=== PATIENT | female | born 1940 | race Caucasian/White ===

== ENCOUNTER 2023-07-29 15:30 | Inpatient (IN) | payer OTHER, SELFPAY ==
[2023-07-28] VITALS (8 sets, daily range): BP systolic 129–155; BP diastolic 61–79; BMI 25.8; BMI 24.5
[2023-07-28 17:17] LABS: % Basophils 1.4 % (0-2); % Eosinophils 3.2 % (0-6); % Immature Granulocytes 0.4 % (0-0.5); % Lymphocytes 18.1 % (20.5-51.1); % Monocytes 8.7 % (1.7-9.3); % Neutrophils 68.2 % (42.2-75.2); Absolute Basophils 0.1 10^3/uL (0-0.2); Absolute Eosinophils 0.3 10^3/uL (0-0.7); Absolute Lymphocytes 1.9 10^3/uL (1.2-3.4); Absolute Monocytes 0.9 10^3/uL (0.1-0.6); Hematocrit 35.2 % (37.0-47.0); Hemoglobin 12.8 g/dL (12.0-16.0); Mean Corp Hgb Conc. 36.4 g/dL (33.0-37.0); Mean Corpuscular Hgb 31.9 pg (27.0-31.0); Mean Corpuscular Volume 87.8 fL (81.0-99.0); Mean Platelet Volume 9.2 fL (7.4-10.4); Nucleated Red Blood Cells % 0 %; Platelet Count 342 10^3/uL (130-400); Red Blood Cell Count 4.01 10^6/uL (4.20-5.40); Red Cell Dist. Width 11.9 % (11.5-14.5); White Blood Cell Count 10.2 10^3/uL (4.8-10.8)
[2023-07-28 17:37] LABS: ALT (SGPT) 16 U/L (0-35); AST (SGOT) 21 U/L (14-36); Alkaline Phosphatase 63 U/L (38-126); Blood Urea Nitrogen 15 mg/dl (7-17); Calcium 9.2 mg/dl (8.4-10.2); Carbon Dioxide 26 mmol/L (22-30); Chloride 100 mmol/L (98-107); Estimated Creatinine Clearance 58 ml/min; Glucose 111 mg/dl (70-99); Potassium 3.3 mmol/L (3.5-5.1); Sodium 129 mmol/L (135-145); Total Bilirubin 0.5 mg/dl (0.2-1.3); eGFR > 60.00
[2023-07-28 17:41] LABS: NT-proBNP 423 pg/ml; Troponin I < 0.012 ng/ml
--- NOTE | 2023-07-28 18:47 | ED.GENMED ---
History of Present Illness
General
Chief Complaint: Chest Pain
Source: patient and family
Exam Limitations: none
Time Seen by Provider: 07/28/23 17:18
Nursing documentation reviewed up to this point in time: agreed with
Travel History
Have you had any contact with someone who has COVID-19?: No
Do you have any symptoms of coronavirus? Fever > 100 degrees, chills, cough, shortness of breath, sore throat, loss of taste or smell, muscle aches, or headache?: No
History of Present Illness
History of Present Illness:
Patient presents to ED secondary to shortness of breath with ambulation along with left-sided chest pain over the past 2 weeks. Denies any fever or chills. Denies nausea or vomiting. Denies symptoms at rest. Denies coughing. Denies dizziness.
Denies back pain. Patient also reports increased leg swelling over the past 2 days. Patient is an ex-smoker and has history of COPD. Of note, patient was admitted at another hospital in [place] 2 weeks ago and diagnosed with TIA. Patient has
been started on aspirin and Plavix since then.
Review of Systems
Review of Systems
Allergies reviewed?: Yes
All Other Systems: ROS reviewed and negative except as documented in HPI and ROS
Constitutional: Reports no symptoms
EENT: Reports no symptoms
Respiratory: Reports trouble breathing
Cardiac: Reports chest pain
ABD/GI: Reports no symptoms
: Reports no symptoms
Musculoskeletal: Reports edema
Skin: Reports no symptoms
Neurological: Reports no symptoms
Phy Exam
Physical Exam
Physical Exam:
Physical Exam
General: no apparent distress, not acutely ill. afebrile.
Head: nc/at. eomi
Neck: supple. no meningeal signs.
Heart: s1/s2 regular rate and rhythm, no murmur. equal radial pulses.
Lungs: no acute respiratory distress. diminished breath sounds bilaterally
Abdomen: normal bowel sounds. not tender.
Neuro: alert and oriented. no focal neurological deficits
Skin: no rash
Psychiatric: well kept. interactive and cooperative
Extremities: LE b/l edema, pitting. no calf tenderness.
Scores
Heart Score for Chest Pain Patients
STEMI patient?: Not applicable
Course
Orders/Labs/Results
Orders:
Orders
07/28/23 Dinner
Regular
At Your Request: Full Participation
07/28/23 16:52
Electrocardiogram (*1) Urgent
Reason for Study: Chest Pain
EKG- Treatment ONCE
07/28/23 17:06
Cardiac Monitoring- Treatment ONCE
IV Insert/Care/Rem.- Treatment PRN
O2 Therapy [RESP] Urgent
Titrate/Wean O2 to maintain O2 sat greater than (%): 90
Special Instructions: Maintain sats >/=90%
Pulse Ox/spot Check [RESP] Urgent
Quantity: 1
Special Instructions: ON ROOM AIR
07/28/23 17:07
Complete Blood Count/With Diff Urgent
Comprehensive Metabolic Panel Urgent
NT-proBNP Urgent
Serum Osmolality Urgent
Comment: ADD ON
Troponin I Urgent
07/28/23 18:03
Electrocardiogram (*1) Urgent
Reason for Study: Chest Pain
EKG- Treatment ONCE
07/28/23 18:40
CR Chest - 2 Views Urgent
Comment:
Reason For Exam: sob/cp
07/28/23 19:17
D-Dimer Urgent
07/28/23 21:09
Dexamethasone Sod Phosphate [Decadron] 6 mg IV NOW STA
Furosemide [Lasix] 20 mg IV NOW STA
Ipratropium/Albuterol Sulfate [Duoneb] 3 ml INH R NOW STA
07/28/23 21:10
Potassium Chloride [KCl] 40 meq PO NOW STA
07/28/23 21:14
Add On- LAB Urgent
Tests Added?: serum osm
07/28/23 21:15
Urinalysis Reflex To Culture Urgent
Date Specimen was Collected: 07/29/23
Time Specimen was Collected: 03:57
Urine Osmolality Random [Osmolality, Random Urine] Urgent
Date Specimen was Collected: 07/29/23
Time Specimen was Collected: 03:57
Urine Sodium Urgent
Date Specimen was Collected: 07/29/23
Time Specimen was Collected: 03:57
07/28/23 21:41
Admit/Transfer Patient As Directed
Co-Sign Provider:
Level of Care: Observation services
Assign to:: Telemetry
Physician / Group: km
Diagnosis: asthma/copd exacerbation
Reason for Telemetry: Arrhythmia
Date to Stop Telemetry: 07/31/23
Time to Stop Telemetry: 11:00
Code Status As Directed
Resuscitation Status: Do not resuscitate
Reached after discussion with pt or family/Healthcare POA: Yes
DNR Bracelet Application ONCE
07/28/23 23:34
Acetaminophen [Tylenol] 650 mg PO Q4HPRN PRN
Zolpidem Tartrate [Ambien] 5 mg PO HS
07/28/23 23:34
Activity As Directed
Activity Level: As Tolerated
Intake/ Output As Directed
Frequency: Per unit guidelines
Vital Signs As Directed
Frequency: Per unit guidelines
DX Deep Vein Thrombosis Video Routine
07/28/23 23:40
Pt Screening Request from Marifer Routine
07/29/23 03:59
Urine Microscopic Reflex Cult Urgent
07/29/23 06:44
Basic Metabolic Panel IN AM
Complete Blood Count/With Diff IN AM
07/29/23 08:00
Alprazolam [Xanax] 0.25 mg PO BID
Amlodipine [Norvasc] 10 mg PO DAILY
Aspirin Low Dose EC [Aspir Low (Enteric Coated)] 81 mg PO DAILY
Cetirizine HCl [Zyrtec] 10 mg PO DAILY
Cholecalciferol (Vitamin D3) [VITAMIN D3 (cholecalciferol)] 25 mcg PO DAILY
Clopidogrel Bisulfate [Plavix] 75 mg PO DAILY
Fluticasone/Salmeterol 45/21 [Advair Hfa 45/21 Mcg Inhaler] 2 puff INH R BID
Heparin 5,000 units SC Q12
Ipratropium/Albuterol Sulfate [Duoneb] 3 ml INH R QID
Lactobac/Bifidobac [Visbiome] 1 cap PO DAILY
Meclizine [Antivert] 25 mg PO BID
Nebivolol HCl [Bystolic] 10 mg PO DAILY
07/29/23 09:28
Echo 2D MMode Color/Doppler Routine
Reason for Study: JONES/murmur
07/29/23 09:29
Carotid US [US Cerebrovascular] Routine
Comment:
Reason For Exam: tia/ stenosis
07/29/23 09:30
PULMONARY CONSULT Routine
Consulting Provider: Veronika Dela Cruz
Was physician already notified: Yes
07/29/23 10:00
Dexamethasone Sod Phosphate [Decadron] 4 mg IV Q12H
07/29/23 13:50
Change in Level of Care [Level of Care Change] As Directed
Level of Care: Inpatient admission
Reason for Hospitalization: COPD exacerbation
Expected length of stay greater than two midnights?: Yes
ELOS- Estimated Length of Stay in days: 2
I certify the patient meets the requirements for IP care: Yes
07/29/23 18:00
Atorvastatin [Lipitor] 10 mg PO QPM
07/31/23 11:00
DC Protocol for Telemetry ONCE
08/02/23 06:00
Alendronate Sodium [Fosamax] 70 mg PO SA@0600
Abnormal Lab Results
07/28/23 07/29/23 07/29/23
17:07 03:59 06:44
RBC 4.01 L 10^6/uL
(4.20-5.40)
Hct 35.2 L %
(37.0-47.0)
MCH 31.9 H pg 31.5 H pg
(27.0-31.0) (27.0-31.0)
Absolute Neuts (auto) 7.0 H 10^3/uL 7.4 H 10^3/uL
(1.4-6.5) (1.4-6.5)
Absolute Lymphs (auto) 0.7 L 10^3/uL
(1.2-3.4)
Absolute Monos (auto) 0.9 H 10^3/uL
(0.1-0.6)
Neutrophils % 89.9 H %
(42.2-75.2)
Lymphocytes % 18.1 L % 8.6 L %
(20.5-51.1) (20.5-51.1)
Monocytes % 0.6 L %
(1.7-9.3)
Sodium 129 L mmol/L 134 L mmol/L
(135-145) (135-145)
Potassium 3.3 L mmol/L
(3.5-5.1)
Creatinine 0.5 L mg/dL 0.5 L mg/dL
(0.6-1.0) (0.6-1.0)
Glucose 111 H mg/dl 160 H mg/dl
(70-99) (70-99)
Serum Osmolality 274 L mOsm/kg
(275-300)
Total Protein 6.0 L g/dl
(6.3-8.2)
Urine Ketones Trace A
(Negative)
Leukocyte Esterase Rfl Trace A
(Negative)
Urine Bacteria (Reflex) Few A
(Negative)
07/29/23 06:44
07/29/23 06:44
Vital Signs
Initial and Last Documented VS:
Initial Vital Signs
BP
135/79
07/28/23 16:47
Last Documented Vital Signs
Temp Pulse Resp BP Pulse Ox
98.6 F 100 18 102/70 95
07/29/23 15:17 07/29/23 15:17 07/29/23 15:17 07/29/23 15:17 07/29/23 15:17
MDM/Problems Addressed
MDM/Problems Addressed:
During ambulation ED, patient noted to have recurrent chest pain along with shortness of breath, associated with desaturation to 88% on room air. Patient presenting symptoms likely multifactorial, including underlying COPD as well as potential mild
fluid overload. As such, patient will be admitted for further evaluation and treatment.
*EKG
Interpreted by ED Provider?: Yes
EKG Intrepretation Date: 07/28/23
Heart Rate: 78
Rate: normal
Rhythm: sinus
[place]: normal axis
Ischemia: non-specific ST changes
*Critical Care Note
Total Time (30-74mins, 75-104mins- exclusive of procedures): Not Applicable
ED Attending Note
-
Portions of this chart may have been created with voice recognition software.� Occasional wrong word or��sound alike� substitutions may have occurred due to the inherent limitations of voice recognition software.
Discharge Plan
Departure
Patient Disposition: Admit
Date of Disposition: 07/28/23
Time of Disposition: 21:13
Admit to: Telemetry
Presentation/result/management discussed w/ accepting MD/DO: Hospitalist
Discharge Problem:
Dyspnea on exertion, COPD (chronic obstructive pulmonary disease)
Interventions
Interventions:
*Risk Screen - Suicide Last Done: 07/28/23 16:48
*General Assessment Last Done: 07/28/23 16:48
*Neglect/Abuse Screening Last Done: 07/28/23 16:48
ED- Fall Risk Assessment Last Done: 07/28/23 19:28
*ED COVID-19 Vaccine History Last Done: 07/28/23 17:03
*Nursing Disposition Last Done: 07/28/23 23:30
ED- Cardiac Assessment Last Done: 07/28/23 19:28
Discharge Date and Time
Discharge Date/Time: 07/28/23 23:30
--- NOTE | 2023-07-28 21:46 | HPS.HSE ---
Family Physician
-
Family Physician: * NONE
Chief Complaint
-
shortness of breath
History of Present Illness
83-year-old female past medical history of asthma/COPD, osteoarthritis, M�ni�re's disease, anxiety, melanoma, basal cell skin cancer, insomnia, hypertension, hyperlipidemia, hyponatremia, prediabetes, presenting with shortness of breath for the past
month with exertion. She denies any shortness of breath when she lies down flat. She has chronic dry cough which is unchanged from baseline. Denies any fevers or chills.
She noticed bilateral lower extremity edema for the first time today. She has lost weight recently. Denies any history of heart failure or cardiac issues.
Patient was hospitalized at another hospital in [place] 2 weeks ago for TIA. He was found to have left carotid artery stenosis during the hospitalization.
Denies smoking or alcohol use.
Medical History
Past Medical History
Past Medical History: Reports Other (asthma/COPD, osteoarthritis, M�ni�re's disease, anxiety, melanoma, basal cell skin cancer, insomnia, hypertension, hyperlipidemia, hyponatremia, prediabetes)
Past Surgical History: Reports Other (Melanoma excision, x 3, appendectomy, right knee meniscectomy,)
Social History
Tobacco: Non-smoker
Alcohol: None
Drug: None
Family History
Family History: Not pertinent
Allergies / Home Medications
Allergies reflects when Allergies were last updated in [facility].
Home Medications with original date entered in [facility]
Allergy/Medication List:
Allergies
Allergy/AdvReac Type Severity Reaction Status Date / Time
Penicillins Allergy Rash/hives Verified 10/26/19 07:30
tape Allergy blisters Uncoded 10/26/19 07:30
Home Medications
alprazolam 0.25 mg tablet 0.25 mg PO BID Mental Health/Anxiety 10/15/19
cetirizine 10 mg tablet 10 mg PO DAILY Allergies 10/15/19
meclizine 25 mg tablet 25 mg PO BID vertigo 10/15/19
nebivolol 10 mg tablet 10 mg PO DAILY Blood pressure 10/15/19
simvastatin 10 mg tablet 10 mg PO QPM High cholesterol 10/15/19
zolpidem 5 mg tablet 5 mg PO HS Sleep 10/15/19
Lactobac no.2-Bifidobac no.1-S. thermo 112.5 billion cell capsule (Visbiome) 1 cap PO DAILY 07/28/23
acetaminophen 325 mg tablet 650 mg PO Q4H PRN mild pain 07/28/23
albuterol sulfate 90 mcg/actuation aerosol inhaler 2 puff inhalation R Q4 PRN sob/wheezing 07/28/23
alendronate 70 mg tablet 70 mg PO SA 07/28/23
amlodipine 10 mg tablet 10 mg PO DAILY 07/28/23
aspirin 81 mg tablet,delayed release 81 mg PO DAILY 07/28/23
cholecalciferol (vitamin D3) 25 mcg (1,000 unit) capsule (Vitamin D3) 25 mcg PO DAILY 07/28/23
clopidogrel 75 mg tablet 75 mg PO DAILY 07/28/23
fluticasone propionate 45 mcg-salmeterol 21 mcg/actuation HFA inhaler (Advair HFA) 2 puff inhalation R BID 07/28/23
krill 1,000 mg-omega-3 170 mg-dha 50 mg-epa 80 tu-anausv-alacc capsule (krill oil) 1 cap PO DAILY 07/28/23
Review of Systems
-
History Source: Patient
A 12 point ROS was completed and negative except as noted: Yes
Constitutional: Reports No Symptoms
EENT: Reports No Symptoms
Respiratory: Reports See HPI
Cardiac: Reports See HPI
Abdomen/GI: Reports No Symptoms
: Reports No Symptoms
Musculoskeletal: Reports No Symptoms
Skin: Reports No Symptoms
Neurological: Reports No Symptoms
Endocrine: Reports No Symptoms
Hematologic/Lymphatic: Reports No Symptoms
Psych: Reports No Symptoms
Physical Exam
Vital Signs
Vital Signs
Temp Pulse Resp BP Pulse Ox
98.5 F 77 20 131/61 95
07/28/23 19:28 07/28/23 19:28 07/28/23 19:28 07/28/23 19:28 07/28/23 19:28
Physical Exam
General: Well Developed, Well Nourished and No Apparent Distress
HEENT: NormoCephalic, Moist mucous membranes and Atraumatic
Respiratory: Clear
Cardiac: S1/S2 and Regular Rhythm; No Murmur or Rub
GI: Soft, Non Tender, Non Distended and Normal Bowel Sounds; No Organomegaly
Rectal: Deferred by Provider
Musculoskeletal: No Clubbing, No Cyanosis and No Edema
Skin: No Rash
Neuro: Nonfocal/grossly intact
Laboratory Results
-
07/28/23 17:07
07/28/23 17:07
Laboratory Results
Total Bilirubin 0.5 mg/dl (0.2-1.3) 07/28/23 17:07
AST 21 U/L (14-36) 07/28/23 17:07
ALT 16 U/L (0-35) 07/28/23 17:07
Alkaline Phosphatase 63 U/L (38-126) 07/28/23 17:07
Troponin I < 0.012 ng/ml 07/28/23 17:07
Data Reviewed
-
Lab Data: Labs Reviewed by me
Old Records: Reviewed
Impression/Plan
-
IMPRESSION:
PLAN:
# Asthma/COPD exacerbation
-Decreased air entry bilaterally on lung exam without wheeze or crackles
-D-dimer negative
-Chest x-ray shows hyperinflated lungs, no notable pulm edema or pneumonia, report pending
-Cardiac BNP 400
-Dexamethasone 4 mg every 12, DuoNebs every 6 hours
-Patient given 20 IV Lasix for heart failure however clinically does not seem to be in heart failure
# Bilateral lower extremity
-Likely venous insufficiency related
# Chest pressure
-EKG shows normal sinus rhythm
-Troponin negative, continue to trend
Recent TIA
Left carotid artery stenosis
-Continue aspirin, Plavix
Chronic hyponatremia
Prediabetes
Essential hypertension
-Continue amlodipine, nebivolol
M�ni�re's disease
-Continue meclizine
Osteoarthritis
Anxiety
-Continue alprazolam
Melanoma
Basal cell skin cancer
Insomnia
-Continue zolpidem
Hyperlipidemia
-Continue statin
Osteoporosis
-Continue alendronate
DNR/DNI
DVT prophylaxis�heparin
Regular diet
[2023-07-28 21:57] LABS: Osmolality Serum 274 mOsm/kg (275-300)
[2023-07-28] MEDS: DECADRON 6 MG IV (21:59)
[2023-07-28] MEDS: DUONEB 3 ML INH (22:00)
[2023-07-28] MEDS: KCL 40 MEQ PO (22:00)
[2023-07-28] MEDS: LASIX 20 MG IV (22:00)
[2023-07-29] MEDS: AMBIEN 5 MG PO ×2 (00:16→21:33)
--- NOTE | 2023-07-29 00:36 | PTCARENOTE ---
Pt admitted to . [facility]. AAOx3, gen weakness. NSR in the monitor. Lung sounds are diminished with some exp wheezing. SaO2 94% RA. Dyspneic w/ exertion. GI. WNL. Pt appears comfortable in bed and call gonzalez within reach.
[2023-07-29 03:15] VITALS: BP 129/73
[2023-07-29 04:09] LABS: Osmolality Urine 373 mOsm/kg (300-900)
[2023-07-29 04:38] LABS: Urine Sodium 64 mmol/L (30-90)
[2023-07-29 04:50] LABS: Urine Albumin Negative (Neg - Trace); Urine Bilirubin Negative (Negative); Urine Character Clear (Clear); Urine Color Yellow; Urine Glucose Negative (Negative); Urine Ketone Trace (Negative); Urine Leukocyte Trace (Negative); Urine Nitrite Negative (Negative); Urine Occult Blood Negative (Negative); Urine Urobilinogen Negative (Neg - 1+)
[2023-07-29 05:02] LABS: Urine Bacteria Few (Negative); Urine Mucus Few; Urine Red Blood Cell 0-2 /HPF (0-2)
[2023-07-29 06:00] VITALS: BMI 24.5
[2023-07-29 07:21] LABS: % Basophils 0.4 % (0-2); % Immature Granulocytes 0.5 % (0-0.5); % Lymphocytes 8.6 % (20.5-51.1); % Monocytes 0.6 % (1.7-9.3); % Neutrophils 89.9 % (42.2-75.2); Absolute Lymphocytes 0.7 10^3/uL (1.2-3.4); Absolute Monocytes 0.1 10^3/uL (0.1-0.6); Absolute Neutrophils 7.4 10^3/uL (1.4-6.5); Hematocrit 38.6 % (37.0-47.0); Hemoglobin 13.6 g/dL (12.0-16.0); Mean Corp Hgb Conc. 35.2 g/dL (33.0-37.0); Mean Corpuscular Hgb 31.5 pg (27.0-31.0); Mean Corpuscular Volume 89.4 fL (81.0-99.0); Mean Platelet Volume 9.4 fL (7.4-10.4); Nucleated Red Blood Cells % 0 %; Platelet Count 363 10^3/uL (130-400); Red Blood Cell Count 4.32 10^6/uL (4.20-5.40); Red Cell Dist. Width 11.8 % (11.5-14.5); White Blood Cell Count 8.3 10^3/uL (4.8-10.8)
[2023-07-29 07:25] VITALS: BP 150/70
[2023-07-29] MEDS: ASPIR LOW (ENTERIC COATED) 81 MG PO (07:33)
[2023-07-29] MEDS: PLAVIX 75 MG PO (07:33)
[2023-07-29] MEDS: VISBIOME 1 CAP PO (07:34)
[2023-07-29] MEDS: VITAMIN D3 (cholecalciferol) 25 MCG PO (07:34)
[2023-07-29] MEDS: ZYRTEC 10 MG PO (07:34)
[2023-07-29] MEDS: XANAX 0.25 MG PO ×2 (07:34→19:58)
[2023-07-29] MEDS: HEPARIN 5000 UNITS SC ×2 (07:34→19:58)
[2023-07-29] MEDS: NORVASC 10 MG PO (07:35)
[2023-07-29 08:02] LABS: Blood Urea Nitrogen 15 mg/dl (7-17); Calcium 9.8 mg/dl (8.4-10.2); Carbon Dioxide 24 mmol/L (22-30); Chloride 101 mmol/L (98-107); Estimated Creatinine Clearance 51 ml/min; Glucose 160 mg/dl (70-99); Potassium 4.1 mmol/L (3.5-5.1); Sodium 134 mmol/L (135-145); eGFR > 60.00
[2023-07-29] MEDS: ANTIVERT 25 MG PO ×2 (08:06→19:57)
[2023-07-29] MEDS: ADVAIR HFA 45/21 MCG INHALER 2 PUFF INH ×2 (08:16→19:37)
[2023-07-29] MEDS: DUONEB 3 ML INH ×2 (08:16→19:36)
--- NOTE | 2023-07-29 09:13 | W.PN.HOSP.TC ---
Today's Communication/Plan
-
Will continue present course of Decadron for now may be mostly dealing with emphysematous component
Pulmonary input/defer CT imaging and follow-up to them
Get 2D echocardiogram
Also carotid ultrasound to document questionable carotid stenosis
Assessment / Plan
Assessment / Plan
83-year-old female past medical history of asthma/COPD, osteoarthritis, M�ni�re's disease, anxiety, melanoma, basal cell skin cancer, insomnia, hypertension, hyperlipidemia, hyponatremia, prediabetes, presenting with shortness of breath for the past
month with exertion. She denies any shortness of breath when she lies down flat. She has chronic dry cough which is unchanged from baseline. Denies any fevers or chills. She states she has had unexplained shortness of breath on any exertion for
the last 3 months.
She noticed bilateral lower extremity edema for the first time today. She has lost weight recently. Denies any history of heart failure or cardiac issues.
Patient was hospitalized at another hospital in [place] 2 weeks ago for TIA. He was found to have left carotid artery stenosis during the hospitalization.
Denies smoking or alcohol use. Quit smoking 20 to 30 years ago.
She has been using what sounds like Advair the great disc for years twice a day and uses rescue Ventolin. She was told she needs a echocardiogram but never got around to doing that prior to leaving [place]. Was also told she may have a carotid
stenosis at that hospitalization
# Asthma/COPD exacerbation/suspect more likely the latter than the former
-Decreased air entry bilaterally on lung exam without wheeze or crackles
-D-dimer negative
-Chest x-ray shows hyperinflated lungs, no notable pulm edema or pneumonia, showed questionable right lower lobe 2 cm opacity
-Cardiac BNP 400/obtain 2D echocardiogram that was to be scheduled as outpatient
-Dexamethasone 4 mg every 12, DuoNebs every 6 hours
-Patient given 20 IV Lasix for heart failure however clinically does not seem to be in heart failure
-Not sure present course of IV Decadron doing that much as not significantly bronchospastic
-Suspect advanced COPD/will get pulmonary input also in regards to questionable mass/patient also wants to follow-up locally
# Bilateral lower extremity
-Likely venous insufficiency related
# Chest pressure
-EKG shows normal sinus rhythm
-Troponin negative, continue to trend
-proBNP of 434
-Will obtain 2D echocardiogram
Recent TIA
Left carotid artery stenosis
-Continue aspirin, Plavix
Chronic hyponatremia
-But sodium jose from 04 28- 34 here
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
Prediabetes
Essential hypertension
-Continue amlodipine, nebivolol
M�ni�re's disease
-Continue meclizine
Osteoarthritis
Anxiety
-Continue alprazolam
Melanoma
-Excision years ago
Basal cell skin cancer
Insomnia
-Continue zolpidem
Hyperlipidemia
-Continue statin
Osteoporosis
-Continue alendronate
DNR/DNI
DVT prophylaxis�heparin
Regular diet
Anticipated Discharge: 24 - 48 hours
Subjective/Interval History
-
Date of Service: July 29, 2023
Patient states that she has had breathing issues especially on exertion for the last 3 months she has been diagnosed with COPD for years recently admitted to a [place] hospital for a suspected TIA was sent home was told may have carotid stenosis
also. She is interested in getting a location analyst locally and requested 1 to see her here.
Objective Data
-
Labs:
Laboratory Results
07/29/23
06:44
WBC 8.3
Hgb 13.6
Hct 38.6
Plt Count 363
Sodium 134 L
Potassium 4.1
Chloride 101
Carbon Dioxide 24
BUN 15
Creatinine 0.5 L
Glucose 160 H
Calcium 9.8
Vital Signs:
Vital Signs
Temp Pulse Resp BP Pulse Ox
98.3 F 81 19 150/70 94
07/29/23 07:25 07/29/23 08:21 07/29/23 08:21 07/29/23 07:35 07/29/23 08:21
I&O
07/28/23 07/29/23 07/30/23
06:59 06:59 06:59
Intake Total 480 / 480
Output Total 800 / 800
Balance -320 / -320
Review of Systems
-
History Source: Patient and Family
Constitutional: Reports Fatigue
Respiratory: Reports Trouble Breathing
Cardiac: Reports No Symptoms
Abdomen/GI: Reports No Symptoms
Skin: Reports No Symptoms
Neuro: Reports No Symptoms
Endocrine: Reports No Symptoms
Physical Exam
-
General: Well Developed
HEENT: Normocephalic
Respiratory: Clear to Auscultation; Negative Wheezes
Cardiac: Regular Rhythm and Murmur
GI: Soft and Nontender
Neuro: Awake, Alert and Oriented
Psych: Calm
Data Reviewed
-
Total Time Spent with Patient (in minutes): 45
Diagnostic Radiology: Report Reviewed by me (Chest x-ray showed underlying COPD no evidence of CHF but did show 2 cm opacity in the right lower lobe cannot exclude mass)
Labs: Labs Reviewed by me (Sodium 129 on presentation now up to 134 potassium up to 4.1/serum osmolality depressed to 274 with a urine osmole normal or slightly high>. SIADH)
[2023-07-29] MEDS: TYLENOL 650 MG PO (09:20)
[2023-07-29] MEDS: DECADRON 4 MG IV ×2 (09:20→21:33)
[2023-07-29] MEDS: BYSTOLIC 10 MG PO (09:37)
[2023-07-29 11:30] VITALS: BP 136/63
[2023-07-29] MEDS: DUONEB INH ×2 (12:09→15:56)
--- NOTE | 2023-07-29 14:50 | CM ---
Met with patient at the bedside; initial assessment completed
SANCHEZ form explained; form signed @ 1440
Family Physician verified: [facility]
*New patient appointment with [facility], [facility], on August 06; #[phone]
Pharmacy verified: [facility], [facility]
Patient lives in [place], [place]; staying with her daughter, Quiana, in [facility]; staying on one floor of home; 2 steps to enter; bath has tub w/ shower
PLOF: independent with ADLs; ambulates with walker; not driving during her stay in [place]
SNF/Rehab/Home Health utilization history: home health with [facility] 4 years ago
Transportation: family will provide transport home
Plan: discharge to daughter's home when medically stable; pending hospital course, will monitor for DC needs
[2023-07-29 15:17] VITALS: BP 102/70
--- NOTE | 2023-07-29 16:31 | CON.PUL ---
Consultation
Consultation Request
Date/Time Consultation Requested: 07/28
Date/Time Consultation Performed: 07/28
Reason for Consultation: Shortness of breath
Medical History
-
History of Present Illness:
History obtained from the chart and from the patient. Patient is an 83-year-old female with history of asthma/COPD, basal cell cancer and melanoma, hypertension, hyperlipidemia who presents with shortness of breath. She states she been short of
breath over the last 3 months. She primarily lives in [place], but has been here for the past few weeks visiting her daughter. She also describes a chronic dry cough which has been present for a few months. Denies hemoptysis. She admits to chest
tightness which she describes as constant, nonpleuritic. She has seen cardiology while in [place] and according to her workup has been negative. She describes lower extremity swelling, difficulty in her speech. For this reason she brought herself
into [facility]. Upon arrival, afebrile, pulse 100, breathing 18, blood pressure 102/70, 95%. Patient was noted to desaturate to 88% on room air while in the ED. Patient was admitted for possible COPD, heart failure
.
PMH: History of asthma/COPD, osteoarthritis, melanoma, basal cell skin cancer, hypertension, hyperlipidemia, history of melanoma excision, , appendectomy. History of TIA hospitalized in [place] early June 2023 with documented carotid
stenosis on the left
Past Medical History
Past Medical History: None (See above)
Past Surgical History: None (See above)
Social History
Tobacco: Former Smoker ([id number], quit )
Alcohol: Occasional
Drug: None
Personal:
Living: Alone
Employment: Retired (Camera Operator)
Family History
Family History: Other (Family history of lung cancer. Brother from lung cancer)
Allergies / Home Medications
Allergies
Allergy/AdvReac Type Severity Reaction Status Date / Time
adhesive tape Allergy BLISTERS Verified 07/28/23 23:41
Penicillins Allergy Rash/hives Verified 10/26/19 07:30
Home Medications
�Medication �Instructions �Recorded �Confirmed �Last Taken �Type
alprazolam 0.25 mg tablet 0.25 mg PO BID Mental 10/15/19 07/28/23 07/28/23 History
Health/Anxiety
cetirizine 10 mg tablet 10 mg PO DAILY Allergies 10/15/19 07/28/23 07/28/23 History
meclizine 25 mg tablet 25 mg PO BID vertigo 10/15/19 07/28/23 07/28/23 History
nebivolol 10 mg tablet 10 mg PO DAILY Blood pressure 10/15/19 07/28/23 07/28/23 History
simvastatin 10 mg tablet 10 mg PO QPM High cholesterol 10/15/19 07/28/23 07/27/23 History
zolpidem 5 mg tablet 5 mg PO HS Sleep 10/15/19 07/28/23 07/27/23 History
Lactobac no.2-Bifidobac no.1-S. 1 cap PO DAILY 07/28/23 07/28/23 07/28/23 History
thermo 112.5 billion cell capsule
(Visbiome)
acetaminophen 325 mg tablet 650 mg PO Q4H PRN mild pain 07/28/23 07/28/23 Unknown History
albuterol sulfate 90 mcg/actuation 2 puff inhalation R Q4 PRN 07/28/23 07/28/23 Unknown History
aerosol inhaler sob/wheezing
alendronate 70 mg tablet 70 mg PO SA 07/28/23 07/28/23 07/26/23 History
amlodipine 10 mg tablet 10 mg PO DAILY 07/28/23 07/28/23 07/28/23 History
aspirin 81 mg tablet,delayed 81 mg PO DAILY 07/28/23 07/28/23 07/28/23 History
release
cholecalciferol (vitamin D3) 25 25 mcg PO DAILY 07/28/23 07/28/23 07/28/23 History
mcg (1,000 unit) capsule (Vitamin
D3)
clopidogrel 75 mg tablet 75 mg PO DAILY 07/28/23 07/28/23 07/28/23 History
fluticasone propionate 45 2 puff inhalation R BID 07/28/23 07/28/23 07/28/23 History
mcg-salmeterol 21 mcg/actuation
HFA inhaler (Advair HFA)
krill 1,000 mg-omega-3 170 mg-dha 1 cap PO DAILY 07/28/23 07/28/23 07/28/23 History
50 mg-epa 80 [id number]
capsule (krill oil)
Review of Systems
-
All other systems: Negative unless noted
Vitals / Labs / Diagnostic Testing
Vital Signs
Temp Pulse Resp BP Pulse Ox
98.6 F 100 18 102/70 95
07/29/23 15:17 07/29/23 15:17 07/29/23 15:17 07/29/23 15:17 07/29/23 15:17
Lab Data
07/29/23 06:44
07/29/23 06:44
Diagnostic Testing:
Physical Exam
-
HEENT: Normocephalic and Anicteric
Cardiovascular: S1/S2, Regular Rhythm, Murmur (2/6 systolic murmur), Rub (n), Peripheral Edema (n) and Calf Tenderness (n)
Respiratory: Wheeze (n), Rales (n), Rhonchi (n) and Non-Labored Respirations
GI: Soft, Non Distended and Non Tender
Neurology: Awake, Alert, Oriented and No Motor Deficits (Able to sit up without assistance)
Skin: Good Color (No clubbing, cyanosis)
General: Comfortable (Conversant)
Assessment
-
83-year-old female with subjective dyspnea x 3 months, progressive, presents with increased lower extremity swelling, questionable speech issues, persistent left-sided chest discomfort. We are asked to comment on pulmonary process
Subjective dyspnea x 3 months, progressive
Chest pain, nonspecific/constant
Recent TIA, hospitalized in [place] 3 weeks prior to admission
Questionable carotid disease
Murmur on exam
Right lower lobe nodule
Kyphoscoliosis
Conditions present prior to admission
History of melanoma/basal cell cancer
History of asthma/COPD
70+ pack-year history of smoking quit
Hypertension/hyperlipidemia
Chronic hyponatremia
History of osteoarthritis
Suspected sleep disordered breathing
Insomnia
Family history of lung cancer
Plan/recommendations
At this time, notable features are clear lungs, unremarkable chest x-ray with the exception of right lower lobe nodule
Symptoms are suggestive of possible fluid overload although patient denies any weight changes
She had seen cardiology in [place] and apparently had a workup which was negative at that time, details unclear
Moving forward
Check echocardiogram
Check bedside spirometry
No wheezing on exam at this time. Will transition to oral prednisone in the next 24 hours
We will continue with current inhaler regimen
Await carotid ultrasound
DVT prophylaxis: Remains on subcutaneous heparin
Will eventually require CT imaging. Timing will be decided in the next 24 hours
Would also consider outpatient HST or nocturnal oximetry depending on symptoms. We will continue to follow
[2023-07-29] MEDS: LIPITOR 10 MG PO (17:15)
[2023-07-29 19:20] VITALS: BP 122/63
[2023-07-29] MEDS: COLACE 100 MG PO (21:33)
[2023-07-29 23:25] VITALS: BP 125/55
[2023-07-30 03:10] VITALS: BP 116/73
[2023-07-30 06:00] VITALS: BMI 24.9
[2023-07-30 07:25] VITALS: BP 118/71
[2023-07-30] MEDS: NORVASC 10 MG PO (08:32)
[2023-07-30] MEDS: BYSTOLIC 10 MG PO (08:32)
[2023-07-30] MEDS: VISBIOME 1 CAP PO (08:32)
[2023-07-30] MEDS: ASPIR LOW (ENTERIC COATED) 81 MG PO (08:32)
[2023-07-30] MEDS: XANAX 0.25 MG PO ×2 (08:32→20:27)
[2023-07-30] MEDS: COLACE 100 MG PO ×2 (08:32→20:27)
[2023-07-30] MEDS: PLAVIX 75 MG PO (08:32)
[2023-07-30] MEDS: ANTIVERT 25 MG PO ×2 (08:32→20:27)
[2023-07-30] MEDS: VITAMIN D3 (cholecalciferol) 25 MCG PO (08:32)
[2023-07-30] MEDS: ZYRTEC 10 MG PO (08:33)
[2023-07-30] MEDS: HEPARIN 5000 UNITS SC (08:33)
--- NOTE | 2023-07-30 09:00 | W.PN.HOSP.TC ---
Today's Communication/Plan
-
For bedside spirometry today
Appreciate pulmonary input the side of further imaging including CT
May need further outpatient follow-up
Transition to oral prednisone
Assessment / Plan
Assessment / Plan
83-year-old female past medical history of asthma/COPD, osteoarthritis, M�ni�re's disease, anxiety, melanoma, basal cell skin cancer, insomnia, hypertension, hyperlipidemia, hyponatremia, prediabetes, presenting with shortness of breath for the past
month with exertion. She denies any shortness of breath when she lies down flat. She has chronic dry cough which is unchanged from baseline. Denies any fevers or chills. She states she has had unexplained shortness of breath on any exertion for
the last 3 months.
She noticed bilateral lower extremity edema for the first time today. She has lost weight recently. Denies any history of heart failure or cardiac issues.
Patient was hospitalized at another hospital in [place] 2 weeks ago for TIA. He was found to have left carotid artery stenosis during the hospitalization.
Denies smoking or alcohol use. Quit smoking 20 to 30 years ago.
She has been using what sounds like Advair the great disc for years twice a day and uses rescue Ventolin. She was told she needs a echocardiogram but never got around to doing that prior to leaving [place]. Was also told she may have a carotid
stenosis at that hospitalization
# Asthma/COPD exacerbation/suspect more likely the latter than the former
-Decreased air entry bilaterally on lung exam without wheeze or crackles
-D-dimer negative
-Chest x-ray shows hyperinflated lungs, no notable pulm edema or pneumonia, showed questionable right lower lobe 2 cm opacity
-Cardiac BNP 400/ 2D echocardiogram here notes a EF of 65% with normal wall motion mild tricuspid regurg with mild elevation in PAP
-Dexamethasone 4 mg every 12, DuoNebs every 6 hours/mostly any significant bronchospasm see no further need for steroids
-Patient given 20 IV Lasix for heart failure however clinically does not seem to be in heart failure
-Suspect advanced COPD/will get pulmonary input also in regards to questionable mass/patient also wants to follow-up locally/PFTs today/pulmonary to decide on CT imaging
# Bilateral lower extremity
-Likely venous insufficiency related
# Chest pressure
-EKG shows normal sinus rhythm
-Troponin negative, continue to trend
-proBNP of 434
-2D echocardiogram noted above
Recent TIA
Performed a carotid Doppler here without significant ICA stenosis
-Continue aspirin, Plavix
Chronic hyponatremia
-But sodium jose from 29-1 34 here
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
Prediabetes
Essential hypertension
-Continue amlodipine, nebivolol
M�ni�re's disease
-Continue meclizine
Osteoarthritis
Anxiety
-Continue alprazolam
Melanoma
-Excision years ago
Basal cell skin cancer
Insomnia
-Continue zolpidem
Hyperlipidemia
-Continue statin
Osteoporosis
-Continue alendronate
DNR/DNI
DVT prophylaxis�heparin
Regular diet
Anticipated Discharge: Within 24 hours
Subjective/Interval History
-
Date of Service: July 30, 2023
Some dyspnea at rest and with conversation no congestion or wheezing./Went over the results of 2D echocardiogram and carotid Doppler
Objective Data
-
Vital Signs:
Vital Signs
Temp Pulse Resp BP Pulse Ox
98.1 F 88 18 118/70 97
07/30/23 07:25 07/30/23 08:32 07/30/23 07:25 07/30/23 08:32 07/30/23 07:25
I&O
07/29/23 07/30/23 07/31/23
06:59 06:59 06:59
Intake Total 480 / 480 1320 / 1320
Output Total 800 / 800
Balance -320 / -320 1320 / 1320
Review of Systems
-
History Source: Patient
Constitutional: Reports No Symptoms
EENT: Reports No Symptoms Reported
Respiratory: Reports Trouble Breathing
Cardiac: Reports No Symptoms
Skin: Reports No Symptoms
Neuro: Reports No Symptoms
Hematologic / Lymphatic: Reports No Symptoms
Physical Exam
-
General: Well Developed
HEENT: Normocephalic
Respiratory: Clear to Auscultation
Cardiac: Regular Rhythm
GI: Soft
Data Reviewed
-
Total Time Spent with Patient (in minutes): 34
Labs: Labs Reviewed by me
[2023-07-30] MEDS: DUONEB 3 ML INH ×4 (09:11→19:34)
[2023-07-30] MEDS: ADVAIR HFA 45/21 MCG INHALER 2 PUFF INH ×2 (09:12→19:34)
[2023-07-30] MEDS: DELTASONE 30 MG PO (10:25)
[2023-07-30 11:04] VITALS: BP 131/67
[2023-07-30 15:20] VITALS: BP 127/66
--- NOTE | 2023-07-30 15:25 | W.PN.PUL3 ---
Today's Communication / Plan
-
Transition to oral prednisone
Continue with Advair
Ambulate, head of bed elevated
We will order CT chest without contrast given abnormal chest x-ray
Will determine workup depending on findings
Assessment
-
83-year-old female with subjective dyspnea x 3 months, progressive, presents with increased lower extremity swelling, questionable speech issues, persistent left-sided chest discomfort. We are asked to comment on pulmonary process
Subjective dyspnea x 3 months, progressive
Chest pain, nonspecific/constant
Recent TIA, hospitalized in [place] 3 weeks prior to admission
Questionable carotid disease
Murmur on exam
Mild aortic stenosis, valve area not reported
Mild pulm hypertension, PA pressure 40
Right lower lobe nodule
Kyphoscoliosis
Conditions present prior to admission
History of melanoma/basal cell cancer
History of asthma/COPD
70+ pack-year history of smoking quit
Hypertension/hyperlipidemia
Chronic hyponatremia
History of osteoarthritis
Suspected sleep disordered breathing
Insomnia
Family history of lung cancer
Plan/recommendations
At this time, notable features are clear lungs, unremarkable chest x-ray with the exception of right lower lobe nodule
Symptoms are suggestive of possible fluid overload although patient denies any weight changes
She had seen cardiology in [place] and apparently had a workup which was negative at that time, details unclear
Patient does feel mildly improved, less cough
Spirometry consistent with mild to moderate obstructive lung disease
Echocardiogram with normal biventricular function, mild aortic stenosis, PA pressure 40
Moving forward
Continue with supportive care
transition to oral prednisone in the next 24 hours
We will continue with current inhaler regimen
Carotid ultrasound unremarkable
DVT prophylaxis: Remains on subcutaneous heparin
Will eventually require CT imaging. Timing will be decided in the next 24 hours
Would also consider outpatient HST or nocturnal oximetry depending on symptoms. We will continue to follow
Encourage ambulation
Subjective Data
-
Date of Service:
Date of Service: July 30, 2023
Subjective:
Patient is feeling fatigued. She denies significant shortness of breath, chest pain, abdominal pain, nausea. She has a dry cough.
Objective Data
Data Reviewed
Vital Signs / I&O / Oxygen:
Vital Signs
Temp Pulse Resp BP Pulse Ox
97.9 F 98 18 131/67 97
07/30/23 11:04 07/30/23 11:04 07/30/23 11:04 07/30/23 11:04 07/30/23 12:22
Intake and Output
07/29/23 07/30/23 07/31/23
06:59 06:59 06:59
Intake Total 480 / 480 1320 / 1320
Output Total 800 / 800
Balance -320 / -320 1320 / 1320
SaO2 97
Physical Exam
General: Comfortable
HEENT: Normocephalic and Anicteric
Cardiovascular: S1-S2, Regular Rhythm, Murmur (2/6 systolic murmur), Rub (n) and Peripheral Edema (n)
Respiratory: Wheeze (Mild), Crackles (n), Rhonchi (n) and Non-Labored Respirations
GI: Soft, Non Distended and Non Tender
Neurology: Awake, Alert and No Motor Deficits (Able to sit up without assistance)
Skin: Cyanosis (n), Jaundice (n) and Rash (n)
Labs/Micro/Reports
Lab Data
07/29/23 06:44
07/29/23 06:44
[2023-07-30] MEDS: LIPITOR 10 MG PO (18:22)
[2023-07-30 19:46] VITALS: BP 119/70
[2023-07-30] MEDS: HEPARIN SC (20:46)
[2023-07-30] MEDS: AMBIEN 5 MG PO (21:50)
[2023-07-30 23:34] VITALS: BP 119/64
[2023-07-31] VITALS (8 sets, daily range): BP systolic 112–138; BP diastolic 51–65; PULSE 105–110; O2SAT 90; BMI 25.3
[2023-07-31 06:52] LABS: Blood Urea Nitrogen 19 mg/dl (7-17); Calcium 9.5 mg/dl (8.4-10.2); Carbon Dioxide 24 mmol/L (22-30); Chloride 101 mmol/L (98-107); Estimated Creatinine Clearance 51 ml/min; Glucose 109 mg/dl (70-99); Potassium 4.1 mmol/L (3.5-5.1); Sodium 132 mmol/L (135-145); eGFR > 60.00
[2023-07-31] MEDS: DUONEB 3 ML INH ×4 (07:19→19:21)
[2023-07-31] MEDS: ADVAIR HFA 45/21 MCG INHALER 2 PUFF INH ×2 (07:20→19:22)
[2023-07-31] MEDS: BYSTOLIC 10 MG PO (09:09)
[2023-07-31] MEDS: VISBIOME 1 CAP PO (09:09)
[2023-07-31] MEDS: XANAX 0.25 MG PO ×2 (09:09→20:49)
[2023-07-31] MEDS: NORVASC 10 MG PO (09:09)
[2023-07-31] MEDS: VITAMIN D3 (cholecalciferol) 25 MCG PO (09:09)
[2023-07-31] MEDS: ANTIVERT 25 MG PO ×2 (09:10→20:49)
[2023-07-31] MEDS: PLAVIX 75 MG PO (09:10)
[2023-07-31] MEDS: COLACE 100 MG PO ×2 (09:10→20:49)
[2023-07-31] MEDS: HEPARIN 5000 UNITS SC (09:10)
[2023-07-31] MEDS: ZYRTEC 10 MG PO (09:10)
[2023-07-31] MEDS: DELTASONE 30 MG PO (09:10)
[2023-07-31] MEDS: ASPIR LOW (ENTERIC COATED) 81 MG PO (09:25)
--- NOTE | 2023-07-31 09:39 | W.PN.HOSP.TC ---
Today's Communication/Plan
-
With onset of A-fib RVR consultation placed with cardiology and discussed
Will need to be placed on anticoagulation
Consideration for discontinuation of Plavix/already has bruising over abdomen and needs after starting in [place]
Discussed the pertinent results thus far with patient's daughter/also discussed with pulmonary today
Assessment / Plan
Assessment / Plan
83-year-old female past medical history of asthma/COPD, osteoarthritis, M�ni�re's disease, anxiety, melanoma, basal cell skin cancer, insomnia, hypertension, hyperlipidemia, hyponatremia, prediabetes, presenting with shortness of breath for the past
month with exertion. She denies any shortness of breath when she lies down flat. She has chronic dry cough which is unchanged from baseline. Denies any fevers or chills. She states she has had unexplained shortness of breath on any exertion for
the last 3 months.
She noticed bilateral lower extremity edema for the first time today. She has lost weight recently. Denies any history of heart failure or cardiac issues.
Patient was hospitalized at another hospital in [place] 2 weeks ago for TIA. He was found to have left carotid artery stenosis during the hospitalization.
Denies smoking or alcohol use. Quit smoking 20 to 30 years ago.
She has been using what sounds like Advair the great disc for years twice a day and uses rescue Ventolin. She was told she needs a echocardiogram but never got around to doing that prior to leaving [place]. Was also told she may have a carotid
stenosis at that hospitalization
# New onset atrial fibrillation with rapid ventricular response noted this morning
-
# Asthma/COPD exacerbation/suspect more likely the latter than the former
-Decreased air entry bilaterally on lung exam without wheeze or crackles
-D-dimer negative
-Chest x-ray shows hyperinflated lungs, no notable pulm edema or pneumonia, showed questionable right lower lobe 2 cm opacity
-Cardiac BNP 400/ 2D echocardiogram here notes a EF of 65% with normal wall motion mild tricuspid regurg with mild elevation in PAP
-Dexamethasone 4 mg every 12, DuoNebs every 6 hours/mostly any significant bronchospasm see no further need for steroids
-Patient given 20 IV Lasix for heart failure however clinically does not seem to be in heart failure
-Suspect advanced COPD/will get pulmonary input also in regards to questionable mass/patient also wants to follow-up locally/PFTs performed bedside noted only mild COPD component without reversibility
-CT scan of the chest pending
# Bilateral lower extremity
-Likely venous insufficiency related
# Chest pressure
-EKG shows normal sinus rhythm
-Troponin negative, continue to trend
-proBNP of 434
-2D echocardiogram noted above
Recent TIA
Performed a carotid Doppler here without significant ICA stenosis
-Continue aspirin, Plavix
Chronic hyponatremia
-But sodium jose from 1 29-1 34 here
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
Prediabetes
Essential hypertension
-Continue amlodipine, nebivolol
M�ni�re's disease
-Continue meclizine
Osteoarthritis
Anxiety
-Continue alprazolam
Melanoma
-Excision years ago
Basal cell skin cancer
Insomnia
-Continue zolpidem
Hyperlipidemia
-Continue statin
Osteoporosis
-Continue alendronate
DNR/DNI
DVT prophylaxis�heparin
Regular diet
Anticipated Discharge: 24 - 48 hours
Subjective/Interval History
-
Date of Service: July 31, 2023
Remains short of breath at rest but no oxygen requirements PFT results only consistent with mild COPD with minimal reversibility if any. Discussed results thus far with patient's daughter and patient's son yesterday now found to be in RVR A-fib
this morning
Objective Data
-
Labs:
Laboratory Results
07/31/23
05:25
Sodium 132 L
Potassium 4.1
Chloride 101
Carbon Dioxide 24
BUN 19 H
Creatinine 0.6
Glucose 109 H
Calcium 9.5
Vital Signs:
Vital Signs
Temp Pulse Resp BP Pulse Ox
97.8 F 91 18 112/58 96
07/31/23 08:13 07/31/23 09:09 07/31/23 08:13 07/31/23 09:09 07/31/23 09:19
I&O
07/30/23 07/31/23 08/01/23
06:59 06:59 06:59
Intake Total 1320 / 1320 600 / 600
Balance 1320 / 1320 600 / 600
Review of Systems
-
History Source: Patient
Constitutional: Reports Fatigue and Weakness
EENT: Reports No Symptoms Reported
Respiratory: Reports Trouble Breathing
Cardiac: Reports No Symptoms
Physical Exam
-
General: Respiratory Distress (Mildly tachypneic minimal exertion)
HEENT: Normocephalic and PERRLA
Respiratory: Decreased Breath Sounds
Cardiac: Irregular Rhythm and Tachycardic (A-fib RVR on monitor)
GI: Soft
Neuro: Awake, Alert, Oriented and AO x 3
Psych: Calm
Data Reviewed
-
Total Time Spent with Patient (in minutes): 56
CT Scan: Report Reviewed by me (Report pending of CT scan of chest)
Labs: Labs Reviewed by me
--- NOTE | 2023-07-31 10:56 | CON.CAR ---
Addendum entered and electronically signed by Aldo Vee DO 08/01/23 10:45:
I saw and examined the patient 07/31/2023 at 1200PM.
The Lowerator Operator's note was reviewed and I agree with the note.
Comment:
Plan:
Patient with recent TIA in [place] and her recent hospitalization. She was started on Plavix for this.
Noted to have paroxysmal atrial fibrillation. Currently in sinus.
Discussed rate control, rhythm control and stroke prophylaxis.
In light of her history of TIA, anticoagulation is recommended and she was started on Eliquis.
Discussed consideration for amiodarone to help keep her in rhythm however after discussion with family there was some concern from daughter regarding the amount of medications that the patient was on. We discussed that if she has continued
recurrent paroxysms of atrial fibrillation that would have a low threshold to start amiodarone.
Cont outpt beta ayana for rate control.
Check echocardiogram
She will be recommended outpatient cardiac follow-up. She was already scheduled to see Dr. Clemons in the office in mid July.
She is recommended to follow through with sleep study to eval for TED as this can increase risk of recurrent AFib and CVA.
Cont pulm eval and tx for possible COPD exacerbation.
Discussed with family at bedside. .
Original Note:
Consultation
Consultation Request
Date/Time Consultation Requested: 07/31/23 at 0835
Date/Time Consultation Performed: 07/31/23 at 1130
Requesting Provider: Dr. Reyes
Performing Provider: Dr. Vee
Reason for Consultation: h/o TIA, posisble new Afib
Medical History
-
History of Present Illness:
Patient came to [facility] on Friday with SOB and recent TIA at a hospital in [place] and cardiology is now consulted for possible Afib. Patient lives in her own apartment in [place]. Patient says that she had an episode of LE edema and confusion so she
went to an urgent care and then an ER in [place]. She says she was admitted overnight and then discharged to home with the diagnosis of TIA. Patient did not recall any work-up, but remembers that she was told she had a murmur and needed an echo.
Patient has seen a PCP locally in the past and looking through eCW I was able to find that patient had an echo in [place] about 2 weeks ago, but patient did not remember this. Patient says that she has been confused and forgetting things lately. No
chest pain, but she has been SOB with all activity. Her family also reports stumbling and falling into furniture and one fall where she fell to the floor and bruised herself. Patient's daughters asked her to fly here and then brought her to [facility] on
Friday. Patient was being transported down for a CT today and noted to have a rapid and irregular rhythm that appeared consistent with Afib. Patient denies palpitations.
PMH:
TIA diagnosed in [place] 06/2023
Mild
Former smoker
HTN
Hyperlipidemia
Past Medical History
Past Medical History: Other (in HPI)
Past Surgical History: Appendectomy, and Orthopedic
Social History
Tobacco: Former Smoker
Alcohol: Occasional
Drug: None
Personal:
Living: Alone (lives in her own apartment in [facility] [place], visiting daughters locally)
Allergies / Home Medications
Allergy/AdvReac Type Severity Reaction Status Date / Time
adhesive tape Allergy BLISTERS Verified 07/28/23 23:41
Penicillins Allergy Rash/hives Verified 10/26/19 07:30
�Medication �Instructions �Recorded �Confirmed �Type
alprazolam 0.25 mg tablet 0.25 mg PO BID Mental 10/15/19 07/28/23 History
Health/Anxiety
cetirizine 10 mg tablet 10 mg PO DAILY Allergies 10/15/19 07/28/23 History
meclizine 25 mg tablet 25 mg PO BID vertigo 10/15/19 07/28/23 History
nebivolol 10 mg tablet 10 mg PO DAILY Blood pressure 10/15/19 07/28/23 History
simvastatin 10 mg tablet 10 mg PO QPM High cholesterol 10/15/19 07/28/23 History
zolpidem 5 mg tablet 5 mg PO HS Sleep 10/15/19 07/28/23 History
Lactobac no.2-Bifidobac no.1-S. 1 cap PO DAILY probiotic 07/28/23 07/28/23 History
thermo 112.5 billion cell capsule
(Visbiome)
acetaminophen 325 mg tablet 650 mg PO Q4H PRN mild pain 07/28/23 07/28/23 History
albuterol sulfate 90 mcg/actuation 2 puff inhalation R Q4 PRN 07/28/23 07/28/23 History
aerosol inhaler sob/wheezing
alendronate 70 mg tablet 70 mg PO SA osteoporosis 07/28/23 07/28/23 History
amlodipine 10 mg tablet 10 mg PO DAILY Blood Pressure 07/28/23 07/28/23 History
aspirin 81 mg tablet,delayed 81 mg PO DAILY Blood Clot 07/28/23 07/28/23 History
release Prevention/Tx
cholecalciferol (vitamin D3) 25 25 mcg PO DAILY Supplement 07/28/23 07/28/23 History
mcg (1,000 unit) capsule (Vitamin
D3)
clopidogrel 75 mg tablet 75 mg PO DAILY Blood Clot 07/28/23 07/28/23 History
Prevention/Tx
fluticasone propionate 45 2 puff inhalation R BID 07/28/23 07/28/23 History
mcg-salmeterol 21 mcg/actuation Lung/Breathing Issues
HFA inhaler (Advair HFA)
krill 1,000 mg-omega-3 170 mg-dha 1 cap PO DAILY Supplement 07/28/23 07/28/23 History
50 mg-epa 80 [id number]
capsule (krill oil)
Review of Systems
-
History Source: Patient and Family (daughter, Sandra, using FaceTime in the room with patient and later other daughter, Quiana, came into pt's room)
All other systems: Negative unless noted
Physical Exam
Vital Signs
Temp Pulse Resp BP Pulse Ox
97.8 F 91 18 112/58 96
07/31/23 08:13 07/31/23 09:09 07/31/23 08:13 07/31/23 09:09 07/31/23 09:19
GEN: NAD. AAOx3
HEENT: EOMI, MMM
LUNGS: Expiratory wheeze, no rales. Not wearing oxygen
CV: Reg, S1/S2, 2/6 syst LSB
ABD: soft, BS+, NT, ND
EXT: No clubbing, cyanosis, lesions or edema B/L
NEURO: Gross non-focal
SKIN: Warm, dry and pink. No rash
Lab Results
07/29/23 06:44
07/31/23 05:25
Troponin I < 0.012 ng/ml 07/28/23 17:07
Eib-S-Qgaacomoabt Pept 423 pg/ml 07/28/23 17:07
Impression / Plan
-
PCP: Dr. Castle locally
Cardiology: Dr. Bob Jung [facility]
Impression:
SOB and wheeze
TIA diagnosed in [place] 06/2023
Newly diagnosed paroxysmal Afib, seen on tele 07/31/23
Mild
RLL nodule
Former smoker
HTN
Hyperlipidemia
Possible TED
Echo 07/14/23: [place] study, EF 67%, mild AI, mild , mild MR, mod TR with PAP 43 mmHg
Echo 07/29/23: EF 65%, mild peak/mean 23/10 mmHg, mod TR
Plan:
-Patient came to [facility] on Friday with SOB and recent TIA at a hospital in [place] and cardiology is now consulted for possible Afib. Patient lives in her own apartment in [place]. Patient says that she had an episode of LE edema and confusion so she
went to an urgent care and then an ER in [place]. She says she was admitted overnight and then discharged to home with the diagnosis of TIA. Patient did not recall any work-up, but remembers that she was told she had a murmur and needed an echo.
Patient has seen a PCP locally in the past and looking through eCW I was able to find that patient had an echo in [place] about 2 weeks ago, but patient did not remember this. Patient says that she has been confused and forgetting things lately. No
chest pain, but she has been SOB with all activity. Her family also reports stumbling and falling into furniture and one fall where she fell to the floor and bruised herself. Patient's daughters asked her to fly here and then brought her to [facility] on
Friday. Patient was being transported down for a CT today and noted to have a rapid and irregular rhythm that appeared consistent with Afib. Patient denies palpitations.
-Talked with patient, her daughter Sandra using FaceTime and her other daughter, Quiana, in the room today. Reviewed recent admission to hospital in [place] and this admission thus far. Reviewed echo and tele findings.
-Tele strips reviewed by me and look rapid and irregular consistent with Afib. Patient spontaneously converted to SR before an ECG could be obtained. Patient was asymptomatic. Given recent TIA in [place] will stop DAPT and transition to Eliquis 2.5
mg BID (age 83, wt 58 kg, Cre 0.6).
-Reviewed stroke risk vs fall risk. Suspect patient will need PT at home and possibly SNF and this might help mitigate fall risk. Family asked for a call from egg caser, I talked with egg caser and asked her to talk to patient and family.
-Cont outpatient dose of nebivolol 10 mg BID for HR control efforts.
-No evidence of carotid disease on u/s
-Echo repeated this admission and EF stable with mild
-For possible h/o TED I recommended to patient and family that they call her PCP to ask for a sleep study now to expedite the process.
--- NOTE | 2023-07-31 11:39 | CM ---
Addendum entered by Sarah De Luna 07/31/23 14:53:
PT/OT evaluations ordered; still pending
Addendum entered by Sarah De Luna 07/31/23 11:49:
SNF list given to patient for her and her daughter to review.
If SNF is recommended, she will need insurance Authorization from [facility] Medicare
Original Note:
Met with patient and daughter at bedside to discuss discharge planning
PA from Cardio evaluated patient and recommends skilled rehab
Texted Attending and requested PT/OT evaluations to assist with DC planning/disposition
--- NOTE | 2023-07-31 12:46 | PTCARENOTE ---
Patient noted to be in rapid afib this morning. Heart rate in 140s at maximum rate. EKG completed. Dr. Reyes made aware. Cardiology consult placed. Patient with slight SOB but denies any other symptoms. Will maintain tele. Patient educated to
report any changes and enforced to call for assistance when getting OOB and walking. Patient verbalizes understanding of fall precaution teaching.
--- NOTE | 2023-07-31 16:13 | W.PN.PUL3 ---
Today's Communication / Plan
-
Transition to oral prednisone, taper to off over the next 10 days
Continue Advair
Switch to Eliquis per cardiology
Check nocturnal oximetry tonight
Outpatient HST and pulmonary follow-up in 2 weeks at request of daughter and patient
Assessment
-
83-year-old female with subjective dyspnea x 3 months, progressive, presents with increased lower extremity swelling, questionable speech issues, persistent left-sided chest discomfort. We are asked to comment on pulmonary process
Subjective dyspnea x 3 months, progressive
Chest pain, nonspecific/constant
Recent TIA, hospitalized in [place] 3 weeks prior to admission
Questionable carotid disease
Murmur on exam
Mild aortic stenosis, valve area not reported
Mild pulm hypertension, PA pressure 40
Multiple bilateral nodules, per CT chest 07/30
1.3 cm adrenal nodule
Kyphoscoliosis
Atrial fibrillation
Conditions present prior to admission
History of melanoma/basal cell cancer
History of asthma/COPD
70+ pack-year history of smoking quit
Hypertension/hyperlipidemia
Chronic hyponatremia
History of osteoarthritis
Suspected sleep disordered breathing
Insomnia
Family history of lung cancer
Plan/recommendations
At this time, she appears to be improved subjectively
Chest exam with better air movement. She is less fatigued.
Episode of atrial fibrillation noted this morning, spontaneously converted to sinus rhythm
History of recent TIA noted in [place]
Echocardiogram with normal biventricular function, mild aortic stenosis, PA pressure 40
Symptoms are suggestive of possible fluid overload although patient denies any weight changes
She had seen cardiology in [place] and apparently had a workup which was negative at that time, details unclear
Patient does feel mildly improved, less cough
Spirometry consistent with mild to moderate obstructive lung disease
Unclear whether she would benefit from switching to Anoro/Stiolto. She is on Asmanex as an outpatient, although records suggest Advair
Hold off on any changes at this time. Would prefer to make changes as outpatient given atrial fibrillation
Transition to oral prednisone, 30 mg
We will continue with current inhaler regimen, remains on Advair. This will continue for now
Carotid ultrasound unremarkable
Reviewed CT chest findings at length. Multiple pulmonary nodules, adrenal nodule noted
Given smoking history, will need follow-up. Would recommend short-term CT imaging in 3 months
May consider short-term chest x-ray in 6 weeks. Pulmonary follow-up recommended
DVT prophylaxis: Remains on subcutaneous heparin
Would also consider outpatient HST, especially now that she has atrial fibrillation
Check nocturnal oximetry tonight
Encourage ambulation, PT/OT
Updated daughter at length by phone at request of patient
All questions answered
Subjective Data
-
Date of Service:
Date of Service: July 31, 2023
Subjective:
Patient appears to be improved. More alert, less fatigued, conversant without use of accessory muscles. Has mild cough but denies chest pain. Had fatigue and shortness of breath this morning, was found to be in atrial fibrillation, spontaneously
converted to sinus rhythm. Cardiology following. Anticoagulation noted
Objective Data
Data Reviewed
Vital Signs / I&O / Oxygen:
Vital Signs
Temp Pulse Resp BP Pulse Ox
97.9 F 88 16 125/56 97
07/31/23 15:20 07/31/23 15:33 07/31/23 15:33 07/31/23 15:20 07/31/23 15:20
Intake and Output
07/30/23 07/31/23 08/01/23
06:59 06:59 06:59
Intake Total 1320 / 1320 600 / 600
Balance 1320 / 1320 600 / 600
SaO2 97
Physical Exam
General: Comfortable
HEENT: Normocephalic and Anicteric
Cardiovascular: S1-S2, Regular Rhythm, Murmur (2/6 systolic murmur), Rub (n) and Peripheral Edema (n)
Respiratory: Wheeze (Mild), Crackles (n), Rhonchi (n), Non-Labored Respirations, Stridor (n) and Other (Decreased breath sounds)
GI: Soft, Non Distended and Non Tender
Neurology: Awake, Alert and No Motor Deficits (Able to sit up without assistance)
Skin: Cyanosis (n), Jaundice (n) and Rash (n)
Labs/Micro/Reports
Lab Data
07/29/23 06:44
07/31/23 05:25
[2023-07-31] MEDS: LIPITOR 10 MG PO (17:38)
[2023-07-31] MEDS: TYLENOL 650 MG PO ×2 (17:42→22:32)
[2023-07-31] MEDS: ELIQUIS 2.5 MG PO (20:49)
[2023-07-31] MEDS: AMBIEN 5 MG PO (22:32)
--- NOTE | 2023-07-31 23:04 | PTCARENOTE ---
Addendum entered by Alaina Schmidt RN 08/01/23 01:54:
Reassessed patient's left breast pain - pt states all discomfort has subsided, and will let RN know of any further changes.
Original Note:
22:35 patient stated she was having some left breast pain. Rated it 6/10, aching in nature, denies any chest pressure. Also felt a little short of breath after walking to the bathroom. VSS, 92-93% on room air lying in bed, EKG obtained - SR with
PACs, nonspecific ST abnormality. Does also state it could've been the way she was sitting in her chair today or her anxiety. TEXTILE SCREEN PRINTER made aware, continue to monitor if pt's xanax and ambien help with her anxiety. Patient states now her pain has
decreased to a 4/10 and is going to try to get some rest. Plan of care ongoing
[2023-08-01 03:10] VITALS: BP 117/63
[2023-08-01 06:00] VITALS: BMI 25.2
[2023-08-01] MEDS: ADVAIR HFA 45/21 MCG INHALER 2 PUFF INH ×2 (07:25→20:15)
[2023-08-01] MEDS: DUONEB 3 ML INH ×4 (07:25→20:15)
[2023-08-01 07:30] VITALS: BP 120/68
[2023-08-01] MEDS: BYSTOLIC 10 MG PO (09:12)
[2023-08-01] MEDS: ASPIR LOW (ENTERIC COATED) 81 MG PO (09:14)
[2023-08-01] MEDS: DELTASONE 30 MG PO (09:14)
[2023-08-01] MEDS: ELIQUIS 2.5 MG PO ×2 (09:14→20:58)
[2023-08-01] MEDS: COLACE 100 MG PO (09:16)
[2023-08-01] MEDS: ANTIVERT 25 MG PO ×2 (09:16→20:58)
[2023-08-01] MEDS: VISBIOME 1 CAP PO (09:16)
[2023-08-01] MEDS: XANAX 0.25 MG PO ×2 (09:16→20:58)
[2023-08-01] MEDS: VITAMIN D3 (cholecalciferol) 25 MCG PO (09:16)
[2023-08-01] MEDS: ZYRTEC 10 MG PO (09:17)
[2023-08-01] MEDS: NORVASC 10 MG PO (09:17)
--- NOTE | 2023-08-01 09:37 | W.PN.HOSP.TC ---
Today's Communication/Plan
-
Stable for discharge if she could can go to rehab
Will need follow-up with pulmonary in regards to CT findings
Continue on Eliquis 2.5 twice daily
Continue to taper steroids is only contributing to some anxiety and tremors
Assessment / Plan
Assessment / Plan
83-year-old female past medical history of asthma/COPD, osteoarthritis, M�ni�re's disease, anxiety, melanoma, basal cell skin cancer, insomnia, hypertension, hyperlipidemia, hyponatremia, prediabetes, presenting with shortness of breath for the past
month with exertion. She denies any shortness of breath when she lies down flat. She has chronic dry cough which is unchanged from baseline. Denies any fevers or chills. She states she has had unexplained shortness of breath on any exertion for
the last 3 months.
She noticed bilateral lower extremity edema for the first time today. She has lost weight recently. Denies any history of heart failure or cardiac issues.
Patient was hospitalized at another hospital in [place] 2 weeks ago for TIA. He was found to have left carotid artery stenosis during the hospitalization.
Denies smoking or alcohol use. Quit smoking 20 to 30 years ago.
She has been using what sounds like Advair the great disc for years twice a day and uses rescue Ventolin. She was told she needs a echocardiogram but never got around to doing that prior to leaving [place]. Was also told she may have a carotid
stenosis at that hospitalization
-
# Asthma/COPD exacerbation/suspect more likely the latter than the former
-Decreased air entry bilaterally on lung exam without wheeze or crackles
-D-dimer negative
-Chest x-ray shows hyperinflated lungs, no notable pulm edema or pneumonia, showed questionable right lower lobe 2 cm opacity
- CT SCAN CHEST/ There are several bilateral pleural-based and parenchymal pulmonary nodules. The largest is in the lingula measures 8 mm on image #44 series 201. There is a similar finding which is pleural-based on image #35 along the posterior
inferior right major fissure. It measures 7 mm.. This probably corresponds to the recent plain film finding.
-Cardiac BNP 400/ 2D echocardiogram here notes a EF of 65% with normal wall motion mild tricuspid regurg with mild elevation in PAP
-Dexamethasone 4 mg every 12, DuoNebs every 6 hours/mostly any significant bronchospasm see no further need for steroids while rapidly taper
-Patient given 20 IV Lasix for heart failure however clinically does not seem to be in heart failure
-Reviewed CT chest findings at length. Multiple pulmonary nodules, adrenal nodule noted
Given smoking history, will need follow-up. Would recommend short-term CT imaging in 3 months
May consider short-term chest x-ray in 6 weeks. Pulmonary follow-up recommended
# Bilateral lower extremity
-Likely venous insufficiency related
Paroxysmal atrial fibrillation
-1 transient episode lasting approximately 1 hour that was self-limited and spontaneously converted to sinus rhythm
-Was placed on Eliquis 2.5 twice daily based on weight and age
-Dual antiplatelet therapy started in [place] recently for her TIA will be stopped
-Cardiology consultation appreciated
# Chest pressure
-EKG shows normal sinus rhythm
-Troponin negative, continue to trend
-proBNP of 434
-2D echocardiogram noted above
Recent TIA
Performed a carotid Doppler here without significant ICA stenosis
-Continue aspirin, Plavix
Chronic hyponatremia
-But sodium jose from 1 29-1 34 here
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
Prediabetes
Essential hypertension
-Continue amlodipine, nebivolol
M�ni�re's disease
-Continue meclizine
Osteoarthritis
Anxiety
-Continue alprazolam
Melanoma
-Excision years ago
Basal cell skin cancer
Insomnia
-Continue zolpidem
Hyperlipidemia
-Continue statin
Osteoporosis
-Continue alendronate
DNR/DNI
DVT prophylaxis�heparin
Regular diet
Anticipated Discharge: Today
Subjective/Interval History
-
Date of Service: August 01, 2023
States she is breathing somewhat easier this morning sitting up in a chair she has remained in sinus rhythm overnight after spontaneously converting yesterday
Objective Data
-
Vital Signs:
Vital Signs
Temp Pulse Resp BP Pulse Ox
98.5 F 77 18 120/68 92
08/01/23 07:30 08/01/23 07:30 08/01/23 07:30 08/01/23 07:30 08/01/23 07:30
I&O
07/31/23 08/01/23 08/02/23
06:59 06:59 06:59
Intake Total 600 / 600 1380 / 1380
Balance 600 / 600 1380 / 1380
Review of Systems
-
History Source: Patient and Family
Respiratory: Reports Trouble Breathing
Physical Exam
-
General: No Apparent Distress
HEENT: Normocephalic
Respiratory: Clear to Auscultation
Cardiac: Regular Rhythm
GI: Soft and Nontender
Neuro: Awake and Alert
Psych: Calm
Data Reviewed
-
Total Time Spent with Patient (in minutes): 56
CT Scan: Report Reviewed by me (There are several bilateral pleural-based and parenchymal pulmonary nodules. The largest is in the lingula measures 8 mm on image #44 series 201. There is a similar finding which is pleural-based on image #35 along
the posterior inferior right major fissure. It measures 7 mm.. This probably correspo)
--- NOTE | 2023-08-01 10:22 | W.PN.CARDCBS ---
Addendum entered and electronically signed by Jose Mercedes MD 08/01/23 12:45:
I saw and examined the patient.
The SAP HANA ARCHITECT or PA's note was reviewed and I agree with the note.
Comment: General: Well developed, well nourished in NAD.
Neck: Supple, no JVD, HJR, carotids +2 B/L, no bruits bilaterally.
Heart: Non displaced PMI, RRR, no murmurs, No S3, S4, no rubs.
Lungs: Scattered rhonchi
Extremities: No clubbing, cyanosis or edema bilaterally.
Neuro: Grossly nonfocal, awake, alert and oriented x3.
Remains in sinus rhythm. Tolerating Eliquis. Consider outpatient sleep study. No further cardiac recommendations. Will sign off, call with questions
Original Note:
Today's Communication / Plan
-
Continue Eliquis (new this admission)
Recommend work-up for possible TED as outpt
Outpatient cardiology follow up arranged
Impression / Plan
-
PCP: Dr. Castle locally
Cardiology: Dr. Bob Jung [facility]
Impression:
SOB and wheeze
TIA diagnosed in [place] 06/2023
Newly diagnosed paroxysmal Afib, seen on tele 07/31/23
Mild
RLL nodule
Former smoker
HTN
Hyperlipidemia
Possible TED
Echo 07/14/23: [place] study, EF 67%, mild AI, mild , mild MR, mod TR with PAP 43 mmHg
Echo 07/29/23: EF 65%, mild peak/mean 23/10 mmHg, mod TR
Plan:
-Presented 07/28/2023 with SOB and wheeze
-New onset atrial fibrillation per review of tele striped. Patient spontaneously converted to SR before an ECG could be obtained. Patient was asymptomatic. Given recent TIA in [place] will stop DAPT and transitioned to Eliquis 2.5 mg BID (age 83,
wt 58 kg, Cre 0.6).
-No further PAF noted on tele
-Reviewed stroke risk vs fall risk.
-PT recommending SNF
-Cont outpatient dose of nebivolol 10 mg BID for HR control efforts.
-No evidence of carotid disease on u/s
-Echo repeated this admission and EF stable with mild
-Asthma/COPD exacerbation. Continue steroids now on oral
-proBNP 434, trop negative
-Pt did see Pulm during admission who recommended outpatient follow up for COPD/Asthma and RLL nodule. Concern for possible h/o TED. Consider outpt eval for this as well
-Mild aortic stenosis on echo. Can be followed as outp
-Outpatient cardiology follow up arranged to see EP in [place]
Patient reports she does eventually plan to return to [place] where she resides and has a jewish history professor and neurologist there.
HPI 07/31/23:
Patient came to [facility] on Friday with SOB and recent TIA at a hospital in [place] and cardiology is now consulted for possible Afib. Patient lives in her own apartment in [place]. Patient says that she had an episode of LE edema and confusion so she
went to an urgent care and then an ER in [place]. She says she was admitted overnight and then discharged to home with the diagnosis of TIA. Patient did not recall any work-up, but remembers that she was told she had a murmur and needed an echo.
Patient has seen a PCP locally in the past and looking through eCW I was able to find that patient had an echo in [place] about 2 weeks ago, but patient did not remember this. Patient says that she has been confused and forgetting things lately. No
chest pain, but she has been SOB with all activity. Her family also reports stumbling and falling into furniture and one fall where she fell to the floor and bruised herself. Patient's daughters asked her to fly here and then brought her to [facility] on
Friday. Patient was being transported down for a CT today and noted to have a rapid and irregular rhythm that appeared consistent with Afib. Patient denies palpitations.
Talked with patient, her daughter Sandra using FaceTime and her other daughter, Quiana, in the room today. Reviewed recent admission to hospital in [place] and this admission thus far. Reviewed echo and tele findings.
Progress Note - Canal Structure Operator
Subjective
Date of Service: August 01, 2023
Patient seen and examined. Patient sitting up in bed. Patient reports that she is feeling well. Denies any cardiac symptoms
Objective
Labs:
07/29/23 06:44
07/31/23 05:25
Labs
Hgb 13.6 g/dL (12.0-16.0) 07/29/23 06:44
Hct 38.6 % (37.0-47.0) 07/29/23 06:44
Plt Count 363 10^3/uL (130-400) 07/29/23 06:44
Sodium 132 mmol/L (135-145) L 07/31/23 05:25
Potassium 4.1 mmol/L (3.5-5.1) 07/31/23 05:25
BUN 19 mg/dl (7-17) H 07/31/23 05:25
Creatinine 0.6 mg/dL (0.6-1.0) 07/31/23 05:25
Glucose 109 mg/dl (70-99) H 07/31/23 05:25
Vital Signs and I&O:
Vital Signs
Temp Pulse Resp BP Pulse Ox
98.5 F 77 18 120/68 92
08/01/23 07:30 08/01/23 07:30 08/01/23 07:30 08/01/23 07:30 08/01/23 07:30
Vital Signs
Temp Pulse Resp BP Pulse Ox
98.5 F 77 18 120/68 92
08/01/23 07:30 08/01/23 07:30 08/01/23 07:30 08/01/23 07:30 08/01/23 07:30
Intake & Output
07/30/23 07/31/23 08/01/23 08/02/23
06:59 06:59 06:59 06:59
Intake Total 1320 / 1320 600 / 600 1380 / 1380
Balance 1320 / 1320 600 / 600 1380 / 1380
Physical Exam
Physical Exam
GEN: No distress, awake, Ox3
HEENT: supple, anicteric, mmm
LUNGS: Poor aeration otherwise CTA, no wheezes/rales
CV: Reg, S1/S2, 2/6 syst murmur
ABD: soft, BS+, NT/ND
EXT: No edema, clubbing or cyanosis
NEURO: Gross non-focal
SKIN: No rash, warm, dry
[2023-08-01 11:00] VITALS: BP 132/68
--- NOTE | 2023-08-01 11:15 | CM ---
PT OT recommended SNF.
Spoke with daughter Sandra [phone] explained PT [place].
Medicare.gov site given to pick SNF.
She will call back with picks.
She will need auth too,
PLAN Pick SNF obtain auth.
--- NOTE | 2023-08-01 11:26 | W.PN.PUL3 ---
Today's Communication / Plan
-
Continue outpatient inhaler regimen, Advair
Anticoagulation per cardiology
Chest x-ray in 6 weeks with pulmonary follow-up
Will require eventual CT chest in 3 months
Follow-up information left in chart.
We will sign off. Please call with questions
Assessment
-
83-year-old female with subjective dyspnea x 3 months, progressive, presents with increased lower extremity swelling, questionable speech issues, persistent left-sided chest discomfort. We are asked to comment on pulmonary process
Subjective dyspnea x 3 months, progressive
Chest pain, nonspecific/constant
Recent TIA, hospitalized in [place] 3 weeks prior to admission
Questionable carotid disease
Murmur on exam
Mild aortic stenosis, valve area not reported
Mild pulm hypertension, PA pressure 40
Multiple bilateral nodules, per CT chest 07/30
1.3 cm adrenal nodule
Kyphoscoliosis
Atrial fibrillation
Conditions present prior to admission
History of melanoma/basal cell cancer
History of asthma/COPD
70+ pack-year history of smoking quit
Hypertension/hyperlipidemia
Chronic hyponatremia
History of osteoarthritis
Suspected sleep disordered breathing
Insomnia
Family history of lung cancer
Plan/recommendations
At this time, she appears to be improved subjectively
Chest exam with better air movement. She is less fatigued.
Episode of atrial fibrillation noted, cardiology following, now on anticoagulation
History of recent TIA noted in [place]
Echocardiogram with normal biventricular function, mild aortic stenosis, PA pressure 40
Tolerating physical therapy, ambulatory saturation 91%
Spirometry consistent with mild to moderate obstructive lung disease
Unclear whether she would benefit from switching to Anoro/Stiolto. She is on Asmanex as an outpatient, although records suggest Advair
Hold off on any changes at this time.
Transition to oral prednisone, 20 mg, wean by 10 mg every 3 days till off
We will continue with current inhaler regimen, remains on Advair. This will continue for now
Carotid ultrasound unremarkable
Reviewed CT chest findings at length. Multiple pulmonary nodules, adrenal nodule noted
Given smoking history, will need follow-up. Would recommend short-term CT imaging in 3 months
May consider short-term chest x-ray in 6 weeks. Pulmonary follow-up recommended
DVT prophylaxis: Remains on subcutaneous heparin
Would also consider outpatient HST, especially now that she has atrial fibrillation
Check nocturnal oximetry tonight
Encourage ambulation, PT/OT
Updated daughter at length by phone at request of patient
All questions answered
Okay for discharge from pulmonary standpoint. Follow-up information left in chart
We will sign off. Please call with questions
Subjective Data
-
Date of Service:
Date of Service: August 01, 2023
Subjective:
Patient continues to improve subjectively and objectively. Denies chest pain, shortness of breath, lightheadedness, palpitations. Fatigue has improved. She is feeling stronger
Objective Data
Data Reviewed
Vital Signs / I&O / Oxygen:
Vital Signs
Temp Pulse Resp BP Pulse Ox
98.3 F 84 18 132/68 94
08/01/23 11:00 08/01/23 11:00 08/01/23 11:00 08/01/23 11:00 08/01/23 11:00
Intake and Output
07/31/23 08/01/23 08/02/23
06:59 06:59 06:59
Intake Total 600 / 600 1380 / 1380
Balance 600 / 600 1380 / 1380
SaO2 94
Physical Exam
General: Comfortable
HEENT: Normocephalic and Anicteric
Cardiovascular: S1-S2, Regular Rhythm, Murmur (2/6 systolic murmur), Rub (n) and Peripheral Edema (n)
Respiratory: Wheeze (no), Crackles (n), Rhonchi (n), Non-Labored Respirations, Stridor (n) and Other (Decreased breath sounds)
GI: Soft, Non Distended and Non Tender
Neurology: Awake, Alert and No Motor Deficits (Able to sit up without assistance)
Skin: Cyanosis (n), Jaundice (n) and Rash (n)
Labs/Micro/Reports
Lab Data
07/29/23 06:44
07/31/23 05:25
[2023-08-01 15:25] VITALS: BP 129/74
[2023-08-01] MEDS: LIPITOR 10 MG PO (17:16)
[2023-08-01] MEDS: TYLENOL 650 MG PO (17:20)
[2023-08-01 19:28] VITALS: BP 146/72
[2023-08-01] MEDS: COLACE PO (20:06)
[2023-08-01] MEDS: AMBIEN 5 MG PO (22:21)
[2023-08-01 23:22] VITALS: BP 115/62
[2023-08-02 03:16] VITALS: BP 116/64
[2023-08-02 04:20] VITALS: BMI 25.6
--- NOTE | 2023-08-02 05:29 | PTCARENOTE ---
Pt voiding in the bathroom about ten times in 8 hours. Bladder scanned for 0 mls. House GARDEN TRACTOR MECHANIC notified.
[2023-08-02] MEDS: FOSAMAX 70 MG PO (05:38)
--- NOTE | 2023-08-02 05:46 | PTCARENOTE ---
Pt with complaints mild tenderness under R breast. House ROBOT TECHNICIAN notified.
--- NOTE | 2023-08-02 06:34 | W.PN.UPDATE ---
Update Note
Progress Note Update
RN noticed AGRICULTURAL EDUCATION PROFESSOR, patient having frequency of urine 15x with 200-250 CC urine each time. Bladder scan zero. will order UA. no other syptoms.
[2023-08-02] MEDS: DUONEB 3 ML INH ×4 (07:21→19:37)
[2023-08-02] MEDS: ADVAIR HFA 45/21 MCG INHALER 2 PUFF INH ×2 (07:22→19:37)
[2023-08-02 07:35] VITALS: BP 130/69
[2023-08-02 08:00] LABS: Urine Albumin Negative (Neg - Trace); Urine Bilirubin Negative (Negative); Urine Character Clear (Clear); Urine Color Yellow; Urine Glucose Negative (Negative); Urine Ketone Negative (Negative); Urine Leukocyte Negative (Negative); Urine Nitrite Negative (Negative); Urine Occult Blood Negative (Negative); Urine Specific Gravity 1.015 (<1.030); Urine Urobilinogen Negative (Neg - 1+)
--- NOTE | 2023-08-02 09:37 | W.PN.HOSP.TC ---
Today's Communication/Plan
-
Stable for discharge to either rehab or home with VNA
She wants to talk with her daughter as to course of management at discharge as far as facility versus going home notes she has to follow-up with pulmonary
Assessment / Plan
Assessment / Plan
83-year-old female past medical history of asthma/COPD, osteoarthritis, M�ni�re's disease, anxiety, melanoma, basal cell skin cancer, insomnia, hypertension, hyperlipidemia, hyponatremia, prediabetes, presenting with shortness of breath for the past
month with exertion. She denies any shortness of breath when she lies down flat. She has chronic dry cough which is unchanged from baseline. Denies any fevers or chills. She states she has had unexplained shortness of breath on any exertion for
the last 3 months.
She noticed bilateral lower extremity edema for the first time today. She has lost weight recently. Denies any history of heart failure or cardiac issues.
Patient was hospitalized at another hospital in [place] 2 weeks ago for TIA. He was found to have left carotid artery stenosis during the hospitalization.
Denies smoking or alcohol use. Quit smoking 20 to 30 years ago.
She has been using what sounds like Advair the great disc for years twice a day and uses rescue Ventolin. She was told she needs a echocardiogram but never got around to doing that prior to leaving [place]. Was also told she may have a carotid
stenosis at that hospitalization
-
# Asthma/COPD exacerbation/suspect more likely the latter than the former
-Decreased air entry bilaterally on lung exam without wheeze or crackles
-D-dimer negative
-Chest x-ray shows hyperinflated lungs, no notable pulm edema or pneumonia, showed questionable right lower lobe 2 cm opacity
- CT SCAN CHEST/ There are several bilateral pleural-based and parenchymal pulmonary nodules. The largest is in the lingula measures 8 mm on image #44 series 201. There is a similar finding which is pleural-based on image #35 along the posterior
inferior right major fissure. It measures 7 mm.. This probably corresponds to the recent plain film finding.
-Cardiac BNP 400/ 2D echocardiogram here notes a EF of 65% with normal wall motion mild tricuspid regurg with mild elevation in PAP
-Dexamethasone 4 mg every 12, DuoNebs every 6 hours/mostly any significant bronchospasm see no further need for steroids while rapidly taper
-Patient given 20 IV Lasix for heart failure however clinically does not seem to be in heart failure
-Reviewed CT chest findings at length. Multiple pulmonary nodules, adrenal nodule noted
Given smoking history, will need follow-up. Would recommend short-term CT imaging in 3 months
May consider short-term chest x-ray in 6 weeks. Pulmonary follow-up recommended
# Bilateral lower extremity
-Likely venous insufficiency related
Paroxysmal atrial fibrillation
-1 transient episode lasting approximately 1 hour that was self-limited and spontaneously converted to sinus rhythm
-Was placed on Eliquis 2.5 twice daily based on weight and age
-Dual antiplatelet therapy started in [place] recently for her TIA will be stopped
-Cardiology consultation appreciated
# Chest pressure
-EKG shows normal sinus rhythm
-Troponin negative, continue to trend
-proBNP of 434
-2D echocardiogram noted above
Recent TIA
Performed a carotid Doppler here without significant ICA stenosis
-Continue aspirin, Plavix
Chronic hyponatremia
-But sodium jose from 1 29-1 34 here
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
Prediabetes
Essential hypertension
-Continue amlodipine, nebivolol
M�ni�re's disease
-Continue meclizine
Osteoarthritis
Anxiety
-Continue alprazolam
Melanoma
-Excision years ago
Basal cell skin cancer
Insomnia
-Continue zolpidem
Hyperlipidemia
-Continue statin
Osteoporosis
-Continue alendronate
DNR/DNI
DVT prophylaxis�heparin
Regular diet
Anticipated Discharge: Today
Subjective/Interval History
-
Date of Service: August 02, 2023
Continues to relate that she is breathing easier at rest and on exertion no more conversational dyspnea noted.
Objective Data
-
Vital Signs:
Vital Signs
Temp Pulse Resp BP Pulse Ox
97.7 F 89 16 130/69 93
08/02/23 07:35 08/02/23 07:35 08/02/23 07:35 08/02/23 07:35 08/02/23 07:35
I&O
08/01/23 08/02/23 08/03/23
06:59 06:59 06:59
Intake Total 1380 / 1380 1080 / 1080
Balance 1380 / 1380 1080 / 1080
Review of Systems
-
All other systems: Not reviewed unless documented
Physical Exam
-
General: No Apparent Distress
Respiratory: Clear to Auscultation and Decreased Breath Sounds
Cardiac: Regular Rhythm
GI: Soft
Neuro: Awake, Alert and Oriented
Psych: Calm
Data Reviewed
-
Total Time Spent with Patient (in minutes): 56
Labs: Labs Reviewed by me
[2023-08-02] MEDS: BYSTOLIC 10 MG PO (09:48)
[2023-08-02] MEDS: DELTASONE 20 MG PO (09:48)
[2023-08-02] MEDS: ASPIR LOW (ENTERIC COATED) 81 MG PO (09:48)
[2023-08-02] MEDS: COLACE 100 MG PO ×2 (09:48→20:41)
[2023-08-02] MEDS: ANTIVERT 25 MG PO ×2 (09:48→20:41)
[2023-08-02] MEDS: VISBIOME 1 CAP PO (09:49)
[2023-08-02] MEDS: ELIQUIS 2.5 MG PO ×2 (09:49→20:41)
[2023-08-02] MEDS: FLUSH (NSS) 1 FLUSH IV (09:49)
[2023-08-02] MEDS: NORVASC 10 MG PO (09:49)
[2023-08-02] MEDS: VITAMIN D3 (cholecalciferol) 25 MCG PO (09:49)
[2023-08-02] MEDS: XANAX 0.25 MG PO ×2 (09:49→20:41)
[2023-08-02] MEDS: ZYRTEC 10 MG PO (09:49)
[2023-08-02 11:13] VITALS: BP 115/71
--- NOTE | 2023-08-02 11:54 | CM ---
Addendum entered by Kerline Cole RN 08/02/23 13:02:
Request to [employer] for SNF auth initiated via [employer] - Reference Number [id number]. Clnical info sent via [employer].
Plan [facility] SNF once insurance approves.
Original Note:
Patient with Dx Asthma/COPD exacerbation, Newly paroxysmal Afib. Room air. PT & OT recommend skilled rehab.
Met with patient and daughters Sandra & Quiana; daughter would like their mother to go to SNF for rehab and patient reluctantly agrees- she says she is nervous about going to an unfamiliar place and daughters reassure her they will be going to the
SNF every day, and her trepidation improved and she seemed less anxious. Daughters requested SNF referrals and they were updated that [facility] has no beds, there was no response from [facility] and [facility] can accept. Patient/daughters agree to
[facility] SNF once insurance approves. IMM completed.
Spoke with [facility], [facility]; they can accept the patient once insurance approves.
Plan [facility] SNF once insurance approves.
[2023-08-02 15:15] VITALS: BP 134/69
[2023-08-02 16:27] VITALS: BP 140/74; BP 143/75; PULSE 103; O2SAT 95
[2023-08-02] MEDS: LIPITOR 10 MG PO (17:12)
[2023-08-02] MEDS: AMBIEN 5 MG PO (21:59)
[2023-08-02 23:35] VITALS: BP 125/61
[2023-08-02] MEDS: MYLICON 80 MG PO (23:58)
[2023-08-03 05:09] VITALS: BMI 25.3
[2023-08-03 07:25] VITALS: BP 159/72
[2023-08-03] MEDS: ADVAIR HFA 45/21 MCG INHALER 2 PUFF INH ×2 (07:32→19:37)
[2023-08-03] MEDS: DUONEB 3 ML INH ×2 (07:32→11:09)
[2023-08-03] MEDS: BYSTOLIC 10 MG PO (09:10)
[2023-08-03] MEDS: ASPIR LOW (ENTERIC COATED) 81 MG PO (09:10)
[2023-08-03] MEDS: ANTIVERT 25 MG PO ×2 (09:10→19:40)
[2023-08-03] MEDS: NORVASC 10 MG PO (09:11)
[2023-08-03] MEDS: ELIQUIS 2.5 MG PO ×2 (09:11→19:40)
[2023-08-03] MEDS: DELTASONE 20 MG PO (09:11)
[2023-08-03] MEDS: COLACE 100 MG PO ×2 (09:11→19:40)
[2023-08-03] MEDS: ZYRTEC 10 MG PO (09:11)
[2023-08-03] MEDS: VITAMIN D3 (cholecalciferol) 25 MCG PO (09:11)
[2023-08-03] MEDS: XANAX 0.25 MG PO ×2 (09:11→19:40)
[2023-08-03] MEDS: VISBIOME 1 CAP PO (09:11)
--- NOTE | 2023-08-03 09:20 | W.PN.HOSP.TC ---
Today's Communication/Plan
-
Awaiting disposition to a subacute nursing facility for rehab
Will need follow-up with pulmonary in regards to further assessment of pulmonary nodularity
Will need outpatient sleep study
Will continue on anticoagulation now with new onset A-fib presently in sinus rhythm on apixaban
will require follow-up CT of the chest in 3 months
Assessment / Plan
Assessment / Plan
83-year-old female past medical history of asthma/COPD, osteoarthritis, M�ni�re's disease, anxiety, melanoma, basal cell skin cancer, insomnia, hypertension, hyperlipidemia, hyponatremia, prediabetes, presenting with shortness of breath for the past
month with exertion. She denies any shortness of breath when she lies down flat. She has chronic dry cough which is unchanged from baseline. Denies any fevers or chills. She states she has had unexplained shortness of breath on any exertion for
the last 3 months.
She noticed bilateral lower extremity edema for the first time today. She has lost weight recently. Denies any history of heart failure or cardiac issues.
Patient was hospitalized at another hospital in [place] 2 weeks ago for TIA. He was found to have left carotid artery stenosis during the hospitalization.
Denies smoking or alcohol use. Quit smoking 20 to 30 years ago.
She has been using what sounds like Advair the great disc for years twice a day and uses rescue Ventolin. She was told she needs a echocardiogram but never got around to doing that prior to leaving [place]. Was also told she may have a carotid
stenosis at that hospitalization
-
# Asthma/COPD exacerbation/suspect more likely the latter than the former
-Decreased air entry bilaterally on lung exam without wheeze or crackles
-D-dimer negative
-Chest x-ray shows hyperinflated lungs, no notable pulm edema or pneumonia, showed questionable right lower lobe 2 cm opacity
- CT SCAN CHEST/ There are several bilateral pleural-based and parenchymal pulmonary nodules. The largest is in the lingula measures 8 mm on image #44 series 201. There is a similar finding which is pleural-based on image #35 along the posterior
inferior right major fissure. It measures 7 mm.. This probably corresponds to the recent plain film finding.
-Cardiac BNP 400/ 2D echocardiogram here notes a EF of 65% with normal wall motion mild tricuspid regurg with mild elevation in PAP
-Dexamethasone 4 mg every 12, DuoNebs every 6 hours/mostly any significant bronchospasm see no further need for steroids while rapidly taper
-Patient given 20 IV Lasix for heart failure however clinically does not seem to be in heart failure
-Reviewed CT chest findings at length. Multiple pulmonary nodules, adrenal nodule noted
Given smoking history, will need follow-up. Would recommend short-term CT imaging in 3 months
May consider short-term chest x-ray in 6 weeks. Pulmonary follow-up recommended
# Bilateral lower extremity
-Likely venous insufficiency related
Paroxysmal atrial fibrillation>> NSR
-1 transient episode lasting approximately 1 hour that was self-limited and spontaneously converted to sinus rhythm
-Was placed on Eliquis 2.5 twice daily based on weight and age
-Dual antiplatelet therapy started in [place] recently for her TIA will be stopped
-Cardiology consultation appreciated
# Chest pressure
-EKG shows normal sinus rhythm
-Troponin negative, continue to trend
-proBNP of 434
-2D echocardiogram noted above
Recent TIA
Performed a carotid Doppler here without significant ICA stenosis
-Continue aspirin, Plavix
Chronic hyponatremia
-But sodium jose from 1 29-1 34 here
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
Prediabetes
Essential hypertension
-Continue amlodipine, nebivolol
M�ni�re's disease
-Continue meclizine
Osteoarthritis
Anxiety
-Continue alprazolam
Melanoma
-Excision years ago
Basal cell skin cancer
Insomnia
-Continue zolpidem
Hyperlipidemia
-Continue statin
Osteoporosis
-Continue alendronate
DNR/DNI
DVT prophylaxis�heparin
Regular diet
Anticipated Discharge: 24 - 48 hours
Subjective/Interval History
-
Date of Service: August 03, 2023
Complaining of right-sided earache and had some reflux symptoms that was improved with dosage of simethicone yesterday. She now is not in agreement after discussion with case management and daughter to go to a subacute nursing facility pending
disposition for this now.
Objective Data
-
Vital Signs:
Vital Signs
Temp Pulse Resp BP Pulse Ox
98.7 F 96 14 159/72 97
08/03/23 07:25 08/03/23 07:41 08/03/23 07:41 08/03/23 07:25 08/03/23 07:41
I&O
08/02/23 08/03/23 08/04/23
06:59 06:59 06:59
Intake Total 1080 / 1080 480 / 480
Output Total 670 / 670
Balance 1080 / 1080 -190 / -190
Review of Systems
-
All other systems: Not reviewed unless documented
EENT: Reports Hearing Loss (Right earache)
Respiratory: Reports Cough
Physical Exam
-
General: Well Developed
HEENT: Normocephalic and Ears Appear Normal (Right ear shows no evidence of any drainage some tenderness in the palpation of auricle)
Respiratory: Clear to Auscultation
Cardiac: Regular Rhythm and S1/S2
GI: Soft
Skin: Warm
Psych: Calm
Data Reviewed
-
Total Time Spent with Patient (in minutes): 56
Labs: Labs Reviewed by me
[2023-08-03] MEDS: MYLICON 80 MG PO (12:07)
[2023-08-03] MEDS: ProAIR HFA INHALER 2 PUFF INH ×2 (15:28→19:37)
[2023-08-03 15:30] VITALS: BP 112/74
[2023-08-03] MEDS: LIPITOR 10 MG PO (17:07)
[2023-08-03] MEDS: CIPRO 1 DROPPERETT OTIC (19:40)
[2023-08-03] MEDS: AMBIEN 5 MG PO (22:06)
[2023-08-03 23:12] VITALS: BP 121/65
[2023-08-04 04:31] VITALS: BMI 24.6
[2023-08-04 08:20] VITALS: BP 150/82
[2023-08-04] MEDS: CIPRO 1 DROPPERETT OTIC ×2 (08:28→19:58)
[2023-08-04] MEDS: COLACE PO ×3 (08:29→19:57)
[2023-08-04] MEDS: ANTIVERT 25 MG PO ×2 (08:29→19:58)
[2023-08-04] MEDS: NORVASC 10 MG PO (08:29)
[2023-08-04] MEDS: ASPIR LOW (ENTERIC COATED) 81 MG PO (08:29)
[2023-08-04] MEDS: BYSTOLIC 10 MG PO (08:29)
[2023-08-04] MEDS: XANAX 0.25 MG PO ×2 (08:29→19:57)
[2023-08-04] MEDS: DELTASONE 20 MG PO (08:30)
[2023-08-04] MEDS: VITAMIN D3 (cholecalciferol) 25 MCG PO (08:30)
[2023-08-04] MEDS: ELIQUIS 2.5 MG PO ×2 (08:30→19:57)
[2023-08-04] MEDS: ZYRTEC 10 MG PO (08:30)
[2023-08-04] MEDS: VISBIOME 1 CAP PO (08:30)
[2023-08-04] MEDS: ADVAIR HFA 45/21 MCG INHALER 2 PUFF INH ×2 (08:37→19:26)
[2023-08-04] MEDS: ProAIR HFA INHALER 2 PUFF INH ×2 (08:38→19:26)
--- NOTE | 2023-08-04 10:07 | W.PN.HOSP.TC ---
Today's Communication/Plan
-
Awaiting placement
Assessment / Plan
Assessment / Plan
Physical Exam
General: Well Developed
HEENT: Normocephalic
Respiratory: Clear to Auscultation
Cardiac: Regular Rhythm and S1/S2
GI: Soft. Nontender. Positive bowel sounds.
Skin: Warm. Dry.
Psych: Calm

83-year-old female past medical history of asthma/COPD, osteoarthritis, M�ni�re's disease, anxiety, melanoma, basal cell skin cancer, insomnia, hypertension, hyperlipidemia, hyponatremia, prediabetes, presenting with shortness of breath for the past
month with exertion. She denies any shortness of breath when she lies down flat. She has chronic dry cough which is unchanged from baseline. Denies any fevers or chills. She states she has had unexplained shortness of breath on any exertion for
the last 3 months.
She noticed bilateral lower extremity edema for the first time on the day of presentation. She had lost weight recently. Denies any history of heart failure or cardiac issues.
Patient was hospitalized at another hospital in [place] 2 weeks ago for TIA. He was found to have left carotid artery stenosis during the hospitalization.
Denied smoking or alcohol use. Quit smoking 20 to 30 years ago.
She has been using what sounds like Advair the great disc for years twice a day and uses rescue Ventolin. She was told she needs a echocardiogram but never got around to doing that prior to leaving [place]. Was also told she may have a carotid
stenosis at that hospitalization
# Asthma/COPD exacerbation/suspect more likely the latter than the former
-Decreased air entry bilaterally on lung exam without wheeze or crackles
-D-dimer negative
-Chest x-ray shows hyperinflated lungs, no notable pulm edema or pneumonia, showed questionable right lower lobe 2 cm opacity
- CT SCAN CHEST/ There are several bilateral pleural-based and parenchymal pulmonary nodules. The largest is in the lingula measures 8 mm on image #44 series 201. There is a similar finding which is pleural-based on image #35 along the posterior
inferior right major fissure. It measures 7 mm.. This probably corresponds to the recent plain film finding.
-Cardiac BNP 400/ 2D echocardiogram here notes a EF of 65% with normal wall motion mild tricuspid regurg with mild elevation in PAP
-Dexamethasone 4 mg every 12, DuoNebs every 6 hours/mostly any significant bronchospasm see no further need for steroids while rapidly taper
-Patient given 20 IV Lasix for heart failure however clinically does not seem to be in heart failure
-CT chest findings with multiple pulmonary nodules, adrenal nodule noted
Given smoking history, will need follow-up. Would recommend short-term CT imaging in 3 months
May consider short-term chest x-ray in 6 weeks. Pulmonary follow-up recommended
-Taper prednisone Q3d until off
# Bilateral lower extremity
-Likely venous insufficiency related
# Paroxysmal atrial fibrillation>> NSR
-1 transient episode lasting approximately 1 hour that was self-limited and spontaneously converted to sinus rhythm
-Was placed on Eliquis 2.5 twice daily based on weight and age
-Dual antiplatelet therapy started in [place] recently for her TIA will be stopped
-Cardiology consultation appreciated
# Chest pressure
-EKG shows normal sinus rhythm
-Troponin negative, continue to trend
-proBNP of 434
-2D echocardiogram noted above
Recent TIA
Performed a carotid Doppler here without significant ICA stenosis
-Continue aspirin
-As per note above, DAPT stopped
Chronic hyponatremia
-But sodium jose to the 130s here
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
Prediabetes
Essential hypertension
-Continue amlodipine, nebivolol
M�ni�re's disease
-Continue meclizine
Osteoarthritis
Anxiety
-Continue alprazolam
Melanoma
-Excision years ago
Basal cell skin cancer
Insomnia
-Continue zolpidem
Hyperlipidemia
-Continue statin
Osteoporosis
-Continue alendronate
DNR/DNI
DVT prophylaxis�Eliquis
Regular diet
Anticipated Discharge: 24 - 48 hours
Subjective/Interval History
-
Date of Service: August 04, 2023
Patient was seen and examined. She denied any new symptoms or complaints.
Objective Data
-
Vital Signs:
Vital Signs
Temp Pulse Resp BP Pulse Ox
97.5 F 82 18 150/82 97
08/04/23 08:20 08/04/23 08:29 08/04/23 08:20 08/04/23 08:29 08/04/23 08:20
I&O
08/03/23 08/04/23 08/05/23
06:59 06:59 06:59
Intake Total 480 / 480 960 / 960
Output Total 670 / 670 50 / 50
Balance -190 / -190 910 / 910
[2023-08-04 11:50] VITALS: BP 130/63; PULSE 87; O2SAT 95
--- NOTE | 2023-08-04 15:53 | CM ---
[facility] auth started. number [id number].
Need auth for [facility]
Spoke with patient and Sandra daughter.
LM with [facility] to assist in obtaining auth for SNF.
IMM reviewed. IMM signed on chart.
Medical nec form completed . Dgt requested ambulance . Pt confused.
[facility]
report [phone]
fax [phone]
PLAN To [facility] after auth obtained
[2023-08-04 16:12] VITALS: BP 148/79
[2023-08-04] MEDS: LIPITOR 10 MG PO (17:09)
--- NOTE | 2023-08-04 19:06 | PTCARENOTE ---
Patient with new complaints of difficulty swallowing with dinner. Speech and swallowing evaluation placed. Denies chest pain or any other symptoms.
[2023-08-04] MEDS: AMBIEN 5 MG PO (22:06)
[2023-08-04] MEDS: MYLICON 80 MG PO (23:32)
[2023-08-04 23:46] VITALS: BP 152/79
[2023-08-05] MEDS: ADVAIR HFA 45/21 MCG INHALER 2 PUFF INH (07:18)
[2023-08-05] MEDS: VISBIOME 1 CAP PO (07:27)
[2023-08-05] MEDS: CIPRO 1 DROPPERETT OTIC (07:27)
[2023-08-05] MEDS: BYSTOLIC 10 MG PO (07:27)
[2023-08-05] MEDS: VITAMIN D3 (cholecalciferol) 25 MCG PO (07:27)
[2023-08-05] MEDS: XANAX 0.25 MG PO (07:28)
[2023-08-05] MEDS: ZYRTEC 10 MG PO (07:28)
[2023-08-05] MEDS: NORVASC 10 MG PO (07:28)
[2023-08-05] MEDS: ANTIVERT 25 MG PO (07:28)
[2023-08-05] MEDS: ASPIR LOW (ENTERIC COATED) 81 MG PO (07:28)
[2023-08-05] MEDS: DELTASONE 10 MG PO (07:28)
[2023-08-05] MEDS: COLACE PO (07:32)
[2023-08-05] MEDS: ELIQUIS 2.5 MG PO (07:32)
[2023-08-05 08:01] VITALS: BP 138/74
[2023-08-05 12:29] VITALS: BP 127/71; PULSE 90; O2SAT 94
--- NOTE | 2023-08-05 13:48 | CM ---
[facility] auth started number [id number].Multiple calls made and Emails.
Obtained auth for [facility] from today to 08/14/23 # [id number] reviewer Sage Hood [phone] assigned to August Acosta.
Aracely/ [place] aware of auth information.
Spoke with Sandra daughter she is aware and agrees with dc to [facility] today.
Daughter Quiana will drive pt to [place] [facility].
[facility]
report [phone]
fax [phone]
PLAN To [facility]
--- NOTE | 2023-08-05 14:00 | W.PN.HOSP.TC ---
Today's Communication/Plan
-
Discharge today
Assessment / Plan
Assessment / Plan
Physical Exam
General: Well Developed
HEENT: Normocephalic
Respiratory: Clear to Auscultation
Cardiac: Regular Rhythm and S1/S2
GI: Soft. Nontender. Positive bowel sounds.
Skin: Warm. Dry.
Psych: Calm

83-year-old female past medical history of asthma/COPD, osteoarthritis, M�ni�re's disease, anxiety, melanoma, basal cell skin cancer, insomnia, hypertension, hyperlipidemia, hyponatremia, prediabetes, presenting with shortness of breath for the past
month with exertion. She denies any shortness of breath when she lies down flat. She has chronic dry cough which is unchanged from baseline. Denies any fevers or chills. She states she has had unexplained shortness of breath on any exertion for
the last 3 months.
She noticed bilateral lower extremity edema for the first time on the day of presentation. She had lost weight recently. Denies any history of heart failure or cardiac issues.
Patient was hospitalized at another hospital in [place] 2 weeks ago for TIA. He was found to have left carotid artery stenosis during the hospitalization.
Denied smoking or alcohol use. Quit smoking 20 to 30 years ago.
She has been using what sounds like Advair the great disc for years twice a day and uses rescue Ventolin. She was told she needs a echocardiogram but never got around to doing that prior to leaving [place]. Was also told she may have a carotid
stenosis at that hospitalization
# Asthma/COPD exacerbation/suspect more likely the latter than the former
-Decreased air entry bilaterally on lung exam without wheeze or crackles
-D-dimer negative
-Chest x-ray shows hyperinflated lungs, no notable pulm edema or pneumonia, showed questionable right lower lobe 2 cm opacity
-CT SCAN CHEST/ There are several bilateral pleural-based and parenchymal pulmonary nodules. The largest is in the lingula measures 8 mm on image #44 series 201. There is a similar finding which is pleural-based on image #35 along the posterior
inferior right major fissure. It measures 7 mm.. This probably corresponds to the recent plain film finding.
-Cardiac BNP 400/ 2D echocardiogram here notes a EF of 65% with normal wall motion mild tricuspid regurg with mild elevation in PAP
-Dexamethasone 4 mg every 12, DuoNebs every 6 hours/mostly any significant bronchospasm see no further need for steroids while rapidly taper
-Patient given 20 IV Lasix for heart failure however clinically does not seem to be in heart failure
-CT chest findings with multiple pulmonary nodules, adrenal nodule noted
Given smoking history, will need follow-up. Would recommend short-term CT imaging in 3 months
-Pulmonary follow-up recommended: chest x-ray in 6 weeks with pulmonary follow-up and will require eventual CT chest in 3 months
-Continue outpatient inhaler regimen, Advair
-Taper prednisone Q3d until off
# Bilateral lower extremity
-Likely venous insufficiency related
# Paroxysmal atrial fibrillation>> NSR
-1 transient episode lasting approximately 1 hour that was self-limited and spontaneously converted to sinus rhythm
-Continue outpatient dose of Nebivolol
-Was placed on Eliquis 2.5 twice daily based on weight and age
-Dual antiplatelet therapy started in [place] recently for her TIA will be stopped
-Cardiology consultation appreciated
# Chest pressure
-EKG shows normal sinus rhythm
-Troponin negative, continue to trend
-proBNP of 434
-2D echocardiogram noted above
Recent TIA
Performed a carotid Doppler here without significant ICA stenosis
-Continue aspirin
-As per note above, DAPT stopped
Chronic hyponatremia
-But sodium jose to the 130s here
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
Prediabetes
Essential hypertension
-Continue amlodipine, nebivolol
M�ni�re's disease
-Continue meclizine
Osteoarthritis
Anxiety
-Continue alprazolam
Melanoma
-Excision years ago
Basal cell skin cancer
Insomnia
-Continue zolpidem
Hyperlipidemia
-Continue statin
Osteoporosis
-Continue alendronate
DNR/DNI
DVT prophylaxis�Eliquis
Regular diet
More than 30 minutes spent in discharge including
Final examination of the patient
Summarizing hospital stay
Instructions for continuing care to all relevant caregivers
Preparation of discharge records, prescriptions, and referral forms
Total time spent (in minutes): 38
Anticipated Discharge: Today
Subjective/Interval History
-
Date of Service: August 05, 2023
Patient was seen and examined. She reported no new symptoms or complaints.
Objective Data
-
Vital Signs:
Vital Signs
Temp Pulse Resp BP Pulse Ox
97.7 F 81 18 138/74 96
08/05/23 08:01 08/05/23 08:01 08/05/23 08:01 08/05/23 08:01 08/05/23 08:01
I&O
08/04/23 08/05/23 08/06/23
06:59 06:59 06:59
Intake Total 960 / 960 1200 / 1200
Output Total 50 / 50
Balance 910 / 910 1200 / 1200
--- NOTE | 2023-08-05 14:32 | W.DS.TRANS ---
DC Summary - Staff Midwife/Apprenticeship Director
-
Discharge Instructions:
Discharge Diagnosis/Procedures Moderate dyspnea on exertion for months
Recent TIA in [place]
Multiple bilateral pulmonary nodules that we
will need follow-up
1.3 cm adrenal nodule
Paroxysm of atrial fibrillation now in sinus
rhythm
Asthma/COPD exacerbation
Bilateral lower extremity edema
Chest pressure
Recent TIA
Chronic hyponatremia
Prediabetes
Essential hypertension
M�ni�re's disease
Osteoarthritis
Anxiety
Melanoma
Basal cell skin cancer
Insomnia
Hyperlipidemia
Osteoporosis
Diet Low Fat,Low Cholesterol
Activity As tolerated
Driving Restrictions Not until seen by your Dr
Instructions:
Stand-Alone Forms:
Changes to Home Medications: Yes
Discharge Medications:
DC Medications w/original date entered in [facility]
alprazolam 0.25 mg tablet 0.25 mg PO BID Mental Health/Anxiety 10/15/19
cetirizine 10 mg tablet 10 mg PO DAILY Allergies 10/15/19
meclizine 25 mg tablet 25 mg PO BID vertigo 10/15/19
nebivolol 10 mg tablet 10 mg PO DAILY Blood pressure 10/15/19
simvastatin 10 mg tablet 10 mg PO QPM High cholesterol 10/15/19
zolpidem 5 mg tablet 5 mg PO HS Sleep 10/15/19
Lactobac no.2-Bifidobac no.1-S. thermo 112.5 billion cell capsule (Visbiome) 1 cap PO DAILY probiotic 07/28/23
acetaminophen 325 mg tablet 650 mg PO Q4H PRN mild pain 07/28/23
albuterol sulfate 90 mcg/actuation aerosol inhaler 2 puff inhalation R Q4 PRN sob/wheezing 07/28/23
alendronate 70 mg tablet 70 mg PO SA osteoporosis 07/28/23
amlodipine 10 mg tablet 10 mg PO DAILY Blood Pressure 07/28/23
aspirin 81 mg tablet,delayed release 81 mg PO DAILY Blood Clot Prevention/Tx 07/28/23
cholecalciferol (vitamin D3) 25 mcg (1,000 unit) capsule (Vitamin D3) 25 mcg PO DAILY Supplement 07/28/23
fluticasone propionate 45 mcg-salmeterol 21 mcg/actuation HFA inhaler (Advair HFA) 2 puff inhalation R BID Lung/Breathing Issues 07/28/23
krill 1,000 mg-omega-3 170 mg-dha 50 mg-epa 80 ob-efjrom-dblsa capsule (krill oil) 1 cap PO DAILY Supplement 07/28/23
apixaban 2.5 mg tablet (Eliquis) 2.5 mg PO BID Blood clot prevention/tx #60 tabs 07/31/23
prednisone 10 mg tablet 10 mg PO DAILY 1 day #1 tab 08/05/23
Home Medication Changes
Eliquis and Prednisone are new medications.
Clopidogrel has been stopped.
Pending Results: No
Total time spent discharging patient (in min): 38
[2023-08-05 15:49] VITALS: BP 139/75
--- NOTE | 2023-08-07 17:21 | W.DCSUMMARY ---
Discharge Summary
Discharge Data
Date of Admission: 07/29/23
Date of Discharge: 08/05/23
Total time spent discharging patient (in min): 38
-
Pending Results: No
Hospital Course
83-year-old female with past medical history of TIA (diagnosed during a recent [place] hospitalization), asthma/COPD, osteoarthritis, M�ni�re's disease, anxiety, melanoma, basal cell skin cancer, insomnia, hypertension, hyperlipidemia, hyponatremia,
prediabetes, presented with shortness of breath for the past month with exertion. She also reported bilateral lower extremity swelling. Patient was started on steroids for COPD exacerbation. Patient had an echocardiogram done which showed, as per
pyridine recovery operator's report, mild aortic stenosis and moderate tricuspid regurgitation with estimated pulmonary artery pressure of 35-40 mmHg. Carotid ultrasound was unremarkable. Pulmonary was consulted and recommended changing to oral steroids.
Spirometry was done during the hospitalization, and it consistent with mild to moderate obstructive lung disease. Patient was found to have newly diagnosed atrial fibrillation, cardiology was consulted, and patient was started on Eliquis; patient's
Plavix was stopped. It was recommended to the patient that she get evaluated for obstructive sleep apnea outpatient. CT imaging done in the hospital showed multiple pulmonary nodules and adrenal nodule (please see the full CT imaging report for all
the details). Pulmonary recommend short-term CT imaging in 3 months and considering short-term chest x-ray in 6 weeks.
Discharge Plan
-
Patient Disposition: Senior Living/SNF
Discharge Diagnosis/Procedures: Moderate dyspnea on exertion for months
Recent TIA in [place]
Multiple bilateral pulmonary nodules that we will need follow-up
1.3 cm adrenal nodule
Paroxysm of atrial fibrillation
Asthma/COPD exacerbation
Bilateral lower extremity edema
Chest pressure
Recent TIA
Chronic hyponatremia
Prediabetes
Essential hypertension
M�ni�re's disease
Osteoarthritis
Anxiety
Melanoma
Basal cell skin cancer
Insomnia
Hyperlipidemia
Osteoporosis
Condition: Fair
Diet: Low Fat and Low Cholesterol
Activity: As tolerated
Driving Restrictions: Not until seen by your Dr
Referrals:
Veronika Dela Cruz MD [Active] -
(2 weeks ([place]) with LAUNDRY AGENT
6-7 weeks with Jose De Jesus (PFT and CXR))
NONE,* [Family Provider] -
Edy Clemons DO [Active] - 08/11/23 2:40 pm ([facility] at 2:40 PM. Please call [phone] if you need to reschedule.)
Additional Discharge Medication Instructions: Eliquis and Prednisone are new medications.
Clopidogrel has been stopped.
Prescriptions:
New
Eliquis 2.5 mg Tablet
2.5 mg PO BID Qty: 60 11RF
prednisone 10 mg Tablet
10 mg PO DAILY 1 Days Qty: 1 0RF
Rx Instructions:
Take on August 06, 2023
Continued
cetirizine 10 MG tablet
10 mg PO DAILY
simvastatin 10 MG tablet
10 mg PO QPM
alprazolam 0.25 MG tablet
0.25 mg PO BID
Patient Comments:
07/28/2023: last filled 07/14/23, 60 tabs for 30 days from [facility]
meclizine 25 MG tablet
25 mg PO BID
zolpidem 5 MG tablet
5 mg PO HS
Patient Comments:
07/28/2023: last filled 06/26/23, 30 tabs for 30 days from [facility]
nebivolol 10 MG tablet
10 mg PO DAILY
amlodipine 10 mg Tablet
10 mg PO DAILY
cholecalciferol (vitamin D3) [Vitamin D3] 25 mcg (1,000 unit) Capsule
25 mcg PO DAILY
fluticasone propion-salmeterol [Advair HFA] 45-21 mcg/actuation Hfa Aerosol Inhaler
2 puff INHALATION R BID
Visbiome 112.5 billion cell Capsule
1 cap PO DAILY
krill oil 1,490-232-38-80 mg Capsule
1 cap PO DAILY
albuterol sulfate 90 mcg/actuation HFA aerosol inhaler
2 puff INHALATION R Q4 PRN (Reason: sob/wheezing)
alendronate 70 mg tablet
70 mg PO SA
aspirin 81 mg Tablet,Delayed Release (Dr/Ec)
81 mg PO DAILY
acetaminophen 325 MG tablet
650 mg PO Q4H PRN (Reason: mild pain)
Discontinued
clopidogrel 75 mg tablet
75 mg PO DAILY
Discharge Orders:
Discharge Patient (As Directed); Ordered 08/05/23
Ordered By: Moody De Leon
Discharge Date and Time
Discharge Date/Time: 08/05/23 15:58
Print Language: SWEDISH
== END 2023-08-05 15:58 | DRG 191 ==
LOC: 4 EAST ACU 15:30
PROVIDERS: Internal Medicine; Nurse Practitioner Gerontology; ADMITTING PHYSICIAN Hospitalist; ATTENDING PHYSICIAN Hospitalist; CONSULT PHYSICIAN Internal Medicine Critical Care Medicine; CONSULT PHYSICIAN Nuclear Medicine Nuclear Cardiology; EMERGENCY PHYSICIAN Emergency Medicine
DX: J44.1 Chronic obstructive pulmonary disease with (acute) exacerbation (principal); E87.1 Hypo-osmolality and hyponatremia; J45.901 Unspecified asthma with (acute) exacerbation; I65.22 Occlusion and stenosis of left carotid artery; I50.9 Heart failure, unspecified; I11.0 Hypertensive heart disease with heart failure; M19.90 Unspecified osteoarthritis, unspecified site; F41.9 Anxiety disorder, unspecified; C44.91 Basal cell carcinoma of skin, unspecified; G47.00 Insomnia, unspecified; Z66 Do not resuscitate; I48.0 Paroxysmal atrial fibrillation; E78.00 Pure hypercholesterolemia, unspecified; M81.0 Age-related osteoporosis without current pathological fracture; M41.9 Scoliosis, unspecified; Z87.891 Personal history of nicotine dependence; Z79.01 Long term (current) use of anticoagulants
CPT/HCPCS: 71046; 71250; 80048; 80053; 81003; 81015; 83880; 83930; 83935; 84300; 84484; 85025; 85379; 93005; 93306; 93880; 94060; 94640; 94762; 97116; 97162; 97166; 97530; 99285

== ENCOUNTER → 2023-08-21 10:35 | Outpatient (REF) | payer OTHER, SELFPAY | LOC: RAD 10:35 | PROVIDERS: ATTENDING PHYSICIAN Internal Medicine Cardiovascular Disease | DX: R60.0 Localized edema (principal) | CPT/HCPCS: 93970 ==

== ENCOUNTER 2024-05-22 10:27 | Emergency (ER) | payer OTHER, SELFPAY ==
[2024-05-22 10:34] VITALS: BP 166/97
[2024-05-22 11:04] VITALS: BMI 23.4
--- NOTE | 2024-05-22 11:43 | ED.GENMED ---
History of Present Illness
General
Chief Complaint: Musculo-Skeletal Complaint
Source: patient
Exam Limitations: none
Time Seen by Provider: 05/22/24 11:25
Nursing documentation reviewed up to this point in time: agreed with
History of Present Illness
History of Present Illness:
84-year-old female with a past medical history of asthma, hypertension, hyperlipidemia who presents to the emergency department today with concerns of pelvic/groin pain and left hip pain following a fall. Patient also complains of pain in her left
buttock. Patient states that she recently moved here from [place] and is currently living with her son and her [id number]. Patient reports that the fall occurred 5 days ago. She was using the bathroom when she went to stand up from the
toilet, she fell onto her left side. Her chart says that patient takes eliquis but patient denies any use of blood dinners. Patient states that when she fell, she did not hit her head or injure her neck, she did not loose consciousness.
Review of Systems
Review of Systems
All Other Systems: ROS reviewed and negative except as documented in HPI and ROS
Phy Exam
Physical Exam
Physical Exam:
General: Patient is well appearing and in no acute distress; non-toxic
Skin: Warm and dry, no rashes or lesions
Head: Normocephalic, atraumatic
Eyes: Sclera non-icteric. EOMs intact.
Cardiac: Regular rate and rhythm, no murmurs
Peripheral Vascular: No lower extremity swelling or edema, 2+ dorsalis pedis pulses bilaterally
Pulm: Normal respiratory effort
Abdomen: No abdominal tenderness to palpation
Musculoskeletal: No left hip tenderness to palpation, mild hip pain with external rotation
Neuro: CN II-XII intact, no focal neurologic deficits.
Psychiatric: Appropriate mood and affect.
Course
Orders/Labs/Results
Orders:
Orders
05/22/24 10:37
Hip, Left 2-3 Views [CR Hip - LT w/wo Pel 2-3 Vw*] Urgent
Comment:
Reason For Exam: pain
Include a pelvis x-ray?: Yes
05/22/24 10:56
CR Lumbar Spine Comp Min 4 Vw* Urgent
Comment:
Reason For Exam: low back/buttock pain, fall
Vital Signs
Initial and Last Documented VS:
Initial Vital Signs
Temp Pulse Resp BP Pulse Ox
98.5 F 94 16 166/97 94
05/22/24 10:34 05/22/24 10:34 05/22/24 10:34 05/22/24 10:34 05/22/24 10:34
Last Documented Vital Signs
Temp Pulse Resp BP Pulse Ox
98.5 F 94 16 166/97 94
05/22/24 10:34 05/22/24 10:34 05/22/24 10:34 05/22/24 10:34 05/22/24 10:34
MDM/Problems Addressed
Differential Diagnosis Includes:
ddx include hip sprain, bursitis, hip fracture, pelvic fracture
MDM/Problems Addressed:
84-year-old female presents emergency department with concerns of groin pain following a fall. On exam she has hip pain with external rotation. She is intact pulses. Her sensations intact. She was found to have superior and inferior pubic rami
fracture. Case discussed with orthopedics. Weightbearing as tolerated. Percocet sent to the pharmacy. Discussed opioid induced constipation. Lidocaine patches also sent. Patient stable for discharge
*Critical Care Note
Total Time (30-74mins, 75-104mins- exclusive of procedures): Not Applicable
Patient Management
Escalation/DeEscalation of care consider admission/obs:
Case discussed with my attending, patient stable for
ED Attending Note
-
Portions of this chart may have been created with voice recognition software.� Occasional wrong word or��sound alike� substitutions may have occurred due to the inherent limitations of voice recognition software.
Discharge Plan
Departure
Patient Disposition: Home (Routine Discharge)
Date of Disposition: 05/22/24
Time of Disposition: 13:39
Patient with high blood pressure during this ER visit?: Yes
Condition: Good
Discharge Problem:
Fracture of left superior pubic ramus, Fracture of left inferior pubic ramus
Instructions: Pelvic fracture, BLOOD PRESSURE
Prescriptions:
New
lidocaine 5 % adhesive patch,medicated
1 patch topical DAILY Qty: 15 0RF
oxycodone-acetaminophen [Percocet] 5-325 mg tablet
1 tab PO Q6HPRN PRN (Reason: pain) Qty: 8 0RF
No Action
cetirizine 10 MG tablet
10 mg PO DAILY
simvastatin 10 MG tablet
10 mg PO QPM
alprazolam 0.25 MG tablet
0.25 mg PO BID
Patient Comments:
07/28/2023: last filled 07/14/23, 60 tabs for 30 days from [facility]
meclizine 25 MG tablet
25 mg PO BID
zolpidem 5 MG tablet
5 mg PO HS
Patient Comments:
07/28/2023: last filled 06/26/23, 30 tabs for 30 days from [facility]
nebivolol 10 MG tablet
10 mg PO DAILY
amlodipine 10 mg Tablet
10 mg PO DAILY
cholecalciferol (vitamin D3) [Vitamin D3] 25 mcg (1,000 unit) Capsule
25 mcg PO DAILY
fluticasone propion-salmeterol [Advair HFA] 45-21 mcg/actuation Hfa Aerosol Inhaler
2 puff INHALATION R BID
Visbiome 112.5 billion cell Capsule
1 cap PO DAILY
krill oil 1,235-766-58-80 mg Capsule
1 cap PO DAILY
albuterol sulfate 90 mcg/actuation HFA aerosol inhaler
2 puff INHALATION R Q4 PRN (Reason: sob/wheezing)
alendronate 70 mg tablet
70 mg PO SA
aspirin 81 mg Tablet,Delayed Release (Dr/Ec)
81 mg PO DAILY
acetaminophen 325 MG tablet
650 mg PO Q4H PRN (Reason: mild pain)
Eliquis 2.5 mg Tablet
2.5 mg PO BID Qty: 60 11RF
prednisone 10 mg Tablet
10 mg PO DAILY 1 Days Qty: 1 0RF
Rx Instructions:
Take on August 06, 2023
Referrals:
NONE,* [Family Provider] -
Marlon Lai MD [Active] - Call in 1-3 days for appt
Activity Restrictions/Additional Instructions:
Please call Dr. Lai's office on Friday to schedule an appointment.
You can take 1 gram of Tylenol every 6 hours as needed for pain. Please do not exceed 4 g in 24 hours. Should you have breakthrough pain, you can start taking Percocet. You can take 1 tablet every 6 hours as needed. This medication contains
Tylenol, please do not take Tylenol with taking his medication. Lidocaine patches have also been sent to your pharmacy. You can apply 1 patch to affected area once daily. Please remove after 12 hours.
PLEASE RETURN TO THE EMERGENCY DEPARTMENT SHOULD YOU EXPERIENCE CHEST PAIN, SHORTNESS OF BREATH, NAUSEA OR VOMITING, SWELLING IN THE LEFT LOWER EXTREMITY, LOSS OF SENSATION IN THE LEFT LOWER EXTREMITY, DISCOLORATION, OR ANY OTHER SIGNS OR SYMPTOMS
WORRISOME TO YOU.
Interventions
Interventions:
*Risk Screen - Suicide Last Done: 05/22/24 10:34
*General Assessment Last Done: 05/22/24 10:34
*Neglect/Abuse Screening Last Done: 05/22/24 13:46
ED- Fall Risk Assessment Last Done: 05/22/24 11:04
*ED COVID-19 Vaccine History Last Done: 05/22/24 10:34
*Nursing Disposition Last Done: 05/22/24 13:47
ED-Musculoskeletal Assessment Last Done: 05/22/24 11:04
Discharge Date and Time
Discharge Date/Time: 05/22/24 13:47
Print Language: ESTONIAN
== END 2024-05-22 13:47 | disposition home or self-care (01) ==
LOC: EMR 10:27
PROVIDERS: EMERGENCY PHYSICIAN Emergency Medicine
DX: S32.592A Other specified fracture of left pubis, initial encounter for closed fracture (principal); W19.XXXA Unspecified fall, initial encounter; J45.909 Unspecified asthma, uncomplicated; I10 Essential (primary) hypertension; E78.00 Pure hypercholesterolemia, unspecified
CPT/HCPCS: 99283; 72110; 73502

== ENCOUNTER 2024-06-02 22:20 | Inpatient (IN) | payer OTHER, SELFPAY ==
[2024-06-02] VITALS (9 sets, daily range): BP systolic 147–227; BP diastolic 67–108; BMI 22.2
--- NOTE | 2024-06-02 18:15 | ED.GENMED ---
History of Present Illness
<JONES Simms - Last Filed: 06/03/24 01:37>
General
Chief Complaint: Abdominal Symptoms
Source: patient and family
Exam Limitations: none
Time Seen by Provider: 06/02/24 18:10
Nursing documentation reviewed up to this point in time: agreed with
History of Present Illness
History of Present Illness:
84-year-old female with past medical history of COPD, hypertension hyperlipidemia TIA , afib presents to the ER for evaluation. Patient was seen here May 22 and diagnosed with a superior and inferior pubic rami fracture. Patient was
discharged home with weight-bear as tolerated however patient complains of continued pain to the left pelvic area. Daughter reports patient can barely get around. Patient recently located here from [place] and has been staying with family. In
addition patient now started with nausea vomiting dry heaving since last night and does complain of left-sided chest pain. Daughter reports patient typically will complain of intermittent chest pain. I In addition pt c/o of lower abdominal pain.
Review of Systems
<JONES Simms - Last Filed: 06/03/24 01:37>
Review of Systems
Allergies reviewed?: Yes
Other source history: family
All Other Systems: ROS reviewed and negative except as documented in HPI and ROS
Constitutional: Reports no symptoms; Denies fever, fatigue or chills
Respiratory: Reports no symptoms
Cardiac: Reports chest pain; Denies diaphoresis, palpitations or syncope
ABD/GI: Reports nausea and vomiting; Denies abdominal pain or diarrhea
: Reports no symptoms; Denies flank pain, urgency or discharge
Musculoskeletal: Reports other (left groin pain )
Skin: Reports no symptoms
Neurological: Reports no symptoms
Hematologic/Lymphatic: Reports no symptoms
Psychiatric: Reports no symptoms
Phy Exam
<JONES Simms - Last Filed: 06/03/24 01:37>
General Physical Exam
General Presentation: no apparent distress
General age: appears stated age
General Skin: warm and dry
General Habitus: normal
General Mental: alert
General Hydration: dry mucous membranes
Cardiovascular Exam
Cardiovascular Exam: regular rate/rhythm, no murmur and normal peripheral pulses
Pulmonary Exam
Pulmonary Exam: lungs clear and no respiratory distress
Gastrointestinal Exam
Gastrointestinal Exam: non tender and soft
Neurological Exam
Neurological Exam: alert and oriented x3
Musculoskeletal Exam
Musculoskeletal Exam: full ROM
Skin Exam
Skin Exam: normal color and warm/dry
Psychiatric Exam
Psychiatric Exam: normal mood/affect
Course
<JONES Simms - Last Filed: 06/03/24 01:37>
Orders/Labs/Results
Orders:
Orders
06/02/24 18:02
EKG [Electrocardiogram (*1)] Urgent
Reason for Study: Chest Pain
06/02/24 18:03
EKG- Treatment ONCE
06/02/24 18:25
Ondansetron Injectable [Zofran] 4 mg IV NOW STA
06/02/24 18:26
0.9% Sodium Chloride 1000 ml [Nss] 1,000 ml IV BOLUS
06/02/24 18:51
Complete Blood Count/With Diff Urgent
Comprehensive Metabolic Panel Urgent
Serum Osmolality Urgent
Comment: ADD ON
Troponin I Urgent
06/02/24 18:55
Morphine Sulfate 2 mg IV NOW STA
06/02/24 19:41
Chest [CR Chest - 2 Views ] Urgent
Comment:
Reason For Exam: cp
06/02/24 19:52
Morphine Sulfate 2 mg IV NOW STA
06/02/24 20:09
Urinalysis Reflex To Culture Urgent
Date Specimen was Collected: 06/02/24
Time Specimen was Collected: 20:06
Urine Microscopic Reflex Cult Urgent
Urine Osmolality Random [Osmolality, Random Urine] Urgent
Date Specimen was Collected: 06/02/24
Time Specimen was Collected: 20:06
Urine Sodium Urgent
Date Specimen was Collected: 06/02/24
Time Specimen was Collected: 20:06
06/02/24 20:13
Ramos Placement- Treatment ONCE
Reason for insertion: Acute Retention
06/02/24 20:18
CT Abd/pelvis W Iv Cont Urgent
Comment:
Reason For Exam: lower abd pain
06/02/24 20:25
Nebivolol HCl [Bystolic] 10 mg PO NOW STA
06/02/24 21:25
Urine Osmolality Random [Osmolality, Random Urine] Urgent
Date Specimen was Collected: 06/02/24
Time Specimen was Collected: 21:19
06/02/24 21:37
Admit/Transfer Patient As Directed
Co-Sign Provider:
Level of Care: Inpatient admission
Assign to:: Telemetry
Physician / Group: Margarita San
Diagnosis: hyponatremia, Cholelithiasis, urinary retention
Reason for Telemetry: Arrhythmia
Date to Stop Telemetry: 06/05/24
Time to Stop Telemetry: 11:00
Reason for Hospitalization: hyponatremia, Cholelithiasis, urinary retention
Expected length of stay greater than two midnights?: Yes
ELOS- Estimated Length of Stay in days: 3
I certify the patient meets the requirements for IP care: Yes
PRN Pain Medication Management As Directed
May give lesser potent ordered pain med per pt: Yes
preference::
Protocol:: Medication orders for pain may be administered in a
manner that supports deferring to patient preference
when the pt is:
- Requesting an ordered lesser potent pain medication.
Least to most potent pain medications are defined
as: acetaminophen < NSAID < tramadol < opioids
(morphine, oxycodone, hydromorphone).
- Requesting a lesser dose of the same medication IF
ORDERED.
- Requesting a less intrusive route of administration
if both routes are prescribed by the provider (PO <
IV).
06/02/24 21:39
Code Status As Directed
Resuscitation Status: Do not resuscitate
Reached after discussion with pt or family/Healthcare POA: Yes
Decision communicated with: patient and daughter
DNR Bracelet Application ONCE
06/02/24 23:48
Acetaminophen [Tylenol] 650 mg PO Q4HPRN PRN
Albuterol [ProAIR HFA INHALER] 2 puff INH R Q4HPRN PRN
HydrALAZINE [Apresoline] 5 mg IV Q4HPRN PRN
Morphine Sulfate 2 mg IV Q4HPRN PRN
Trazodone [Desyrel] 50 mg PO HS
06/02/24 23:48
Consult Urology [UROLOGY CONSULT] Routine
Consulting Provider: Erich Beebe Jr.
Was physician already notified: Yes
Activity As Directed
Activity Level: With Assistance
Vital Signs As Directed
Frequency: Per unit guidelines
Weight As Directed
Frequency: Once
OT Consult [Ot Eval And Treat] Routine
PT Consult [Pt Eval And Treat] Routine
Activity Level: With Assistance
DX Deep Vein Thrombosis Video Routine
06/03/24 00:00
Enalaprilat [Vasotec] 0.625 mg IV Q6
06/03/24 06:00
Basic Metabolic Panel IN AM
Complete Blood Count/No Diff IN AM
06/03/24 08:00
Alprazolam [Xanax] 0.25 mg PO BID
Amlodipine [Norvasc] 2.5 mg PO DAILY
Cholecalciferol (Vitamin D3) [VITAMIN D3 (cholecalciferol)] 25 mcg PO DAILY
Meclizine [Antivert] 25 mg PO BID
06/03/24 18:00
Cetirizine HCl [Zyrtec] 10 mg PO QPM
Enoxaparin Sodium [Lovenox] 40 mg SC QPM
Nebivolol HCl [Bystolic] 10 mg PO QPM
06/04/24 06:00
Basic Metabolic Panel IN AM
06/05/24 06:00
Basic Metabolic Panel IN AM
06/05/24 11:00
DC Protocol for Telemetry ONCE
Abnormal Lab Results
06/02/24 06/02/24 06/02/24
18:51 20:09 21:25
WBC 17.9 H 10^3/uL
(4.8-10.8)
MCH 31.1 H pg
(27.0-31.0)
Plt Count 413 H 10^3/uL
(130-400)
Abs Immat Gran (auto) 0.1 H 10^3/uL
(0-0.05)
Absolute Neuts (auto) 16.0 H 10^3/uL
(1.4-6.5)
Absolute Lymphs (auto) 0.7 L 10^3/uL
(1.2-3.4)
Absolute Monos (auto) 1.0 H 10^3/uL
(0.1-0.6)
Immature Gran % 0.6 H %
(0-0.5)
Neutrophils % 89.6 H %
(42.2-75.2)
Lymphocytes % 4.1 L %
(20.5-51.1)
Sodium 121 L mmol/L
(135-145)
Chloride 90 L mmol/L
(98-107)
Carbon Dioxide 19 L mmol/L
(22-30)
Creatinine 0.4 L mg/dL
(0.6-1.0)
Glucose 127 H mg/dl
(70-99)
Serum Osmolality 257 L mOsm/kg
(275-300)
Total Bilirubin 1.6 H mg/dl
(0.2-1.3)
Urine Ketones 3+ A
(Negative)
Ur Occult Blood Reflex 1+ A
(Negative)
Urine RBC 3-6 A /HPF
(0-2)
Urine Bacteria (Reflex) Few A
(Negative)
Urine Osmolality 116 L mOsm/kg
(300-900)
Urine Albumin (Reflex) 3+ A
(Neg - Trace)
06/02/24 18:51
06/02/24 18:51
Vital Signs
Initial and Last Documented VS:
Initial Vital Signs
Temp Pulse Resp BP Pulse Ox
97.5 F 86 22 154/108 97
06/02/24 17:57 06/02/24 17:57 06/02/24 17:57 06/02/24 17:57 06/02/24 17:57
Last Documented Vital Signs
Temp Pulse Resp BP Pulse Ox
97.7 F 72 16 162/71 96
06/03/24 01:30 06/03/24 01:30 06/03/24 01:30 06/03/24 01:30 06/03/24 01:30
Automobile Mechanic Apprentice consulted with Physician
Automobile Mechanic Apprentice consulted with physician?: Yes (Andrea )
Name of Physician Consulted: Andrea
<Austin Mendez, DO - Last Filed: 06/02/24 22:20>
Orders/Labs/Results
Orders:
Orders
06/02/24 18:02
EKG [Electrocardiogram (*1)] Urgent
Reason for Study: Chest Pain
06/02/24 18:03
EKG- Treatment ONCE
06/02/24 18:25
Ondansetron Injectable [Zofran] 4 mg IV NOW STA
06/02/24 18:26
0.9% Sodium Chloride 1000 ml [Nss] 1,000 ml IV BOLUS
06/02/24 18:51
Complete Blood Count/With Diff Urgent
Comprehensive Metabolic Panel Urgent
Serum Osmolality Urgent
Comment: ADD ON
Troponin I Urgent
06/02/24 18:55
Morphine Sulfate 2 mg IV NOW STA
06/02/24 19:41
Chest [CR Chest - 2 Views ] Urgent
Comment:
Reason For Exam: cp
06/02/24 19:52
Morphine Sulfate 2 mg IV NOW STA
06/02/24 20:09
Urinalysis Reflex To Culture Urgent
Date Specimen was Collected: 06/02/24
Time Specimen was Collected: 20:06
Urine Microscopic Reflex Cult Urgent
Urine Osmolality Random [Osmolality, Random Urine] Urgent
Date Specimen was Collected: 06/02/24
Time Specimen was Collected: 20:06
Urine Sodium Urgent
Date Specimen was Collected: 06/02/24
Time Specimen was Collected: 20:06
06/02/24 20:13
Ramos Placement- Treatment ONCE
Reason for insertion: Acute Retention
06/02/24 20:18
CT Abd/pelvis W Iv Cont Urgent
Comment:
Reason For Exam: lower abd pain
06/02/24 20:25
Nebivolol HCl [Bystolic] 10 mg PO NOW STA
06/02/24 21:25
Urine Osmolality Random [Osmolality, Random Urine] Urgent
Date Specimen was Collected: 06/02/24
Time Specimen was Collected: 21:19
06/02/24 21:37
Admit/Transfer Patient As Directed
Co-Sign Provider:
Level of Care: Inpatient admission
Assign to:: Telemetry
Physician / Group: Margarita San
Diagnosis: hyponatremia, Cholelithiasis, urinary retention
Reason for Telemetry: Arrhythmia
Date to Stop Telemetry: 06/05/24
Time to Stop Telemetry: 11:00
Reason for Hospitalization: hyponatremia, Cholelithiasis, urinary retention
Expected length of stay greater than two midnights?: Yes
ELOS- Estimated Length of Stay in days: 3
I certify the patient meets the requirements for IP care: Yes
PRN Pain Medication Management As Directed
May give lesser potent ordered pain med per pt: Yes
preference::
Protocol:: Medication orders for pain may be administered in a
manner that supports deferring to patient preference
when the pt is:
- Requesting an ordered lesser potent pain medication.
Least to most potent pain medications are defined
as: acetaminophen < NSAID < tramadol < opioids
(morphine, oxycodone, hydromorphone).
- Requesting a lesser dose of the same medication IF
ORDERED.
- Requesting a less intrusive route of administration
if both routes are prescribed by the provider (PO <
IV).
06/02/24 21:39
Code Status As Directed
Resuscitation Status: Do not resuscitate
Reached after discussion with pt or family/Healthcare POA: Yes
Decision communicated with: patient and daughter
DNR Bracelet Application ONCE
06/02/24 23:48
Acetaminophen [Tylenol] 650 mg PO Q4HPRN PRN
Albuterol [ProAIR HFA INHALER] 2 puff INH R Q4HPRN PRN
HydrALAZINE [Apresoline] 5 mg IV Q4HPRN PRN
Morphine Sulfate 2 mg IV Q4HPRN PRN
Trazodone [Desyrel] 50 mg PO HS
06/02/24 23:48
Consult Urology [UROLOGY CONSULT] Routine
Consulting Provider: Erich Beebe Jr.
Was physician already notified: Yes
Activity As Directed
Activity Level: With Assistance
Vital Signs As Directed
Frequency: Per unit guidelines
Weight As Directed
Frequency: Once
OT Consult [Ot Eval And Treat] Routine
PT Consult [Pt Eval And Treat] Routine
Activity Level: With Assistance
DX Deep Vein Thrombosis Video Routine
06/03/24 00:00
Enalaprilat [Vasotec] 0.625 mg IV Q6
06/03/24 06:00
Basic Metabolic Panel IN AM
Complete Blood Count/No Diff IN AM
06/03/24 08:00
Alprazolam [Xanax] 0.25 mg PO BID
Amlodipine [Norvasc] 2.5 mg PO DAILY
Cholecalciferol (Vitamin D3) [VITAMIN D3 (cholecalciferol)] 25 mcg PO DAILY
Meclizine [Antivert] 25 mg PO BID
06/03/24 18:00
Cetirizine HCl [Zyrtec] 10 mg PO QPM
Enoxaparin Sodium [Lovenox] 40 mg SC QPM
Nebivolol HCl [Bystolic] 10 mg PO QPM
06/04/24 06:00
Basic Metabolic Panel IN AM
06/05/24 06:00
Basic Metabolic Panel IN AM
06/05/24 11:00
DC Protocol for Telemetry ONCE
Abnormal Lab Results
06/02/24 06/02/24 06/02/24
18:51 20:09 21:25
WBC 17.9 H 10^3/uL
(4.8-10.8)
MCH 31.1 H pg
(27.0-31.0)
Plt Count 413 H 10^3/uL
(130-400)
Abs Immat Gran (auto) 0.1 H 10^3/uL
(0-0.05)
Absolute Neuts (auto) 16.0 H 10^3/uL
(1.4-6.5)
Absolute Lymphs (auto) 0.7 L 10^3/uL
(1.2-3.4)
Absolute Monos (auto) 1.0 H 10^3/uL
(0.1-0.6)
Immature Gran % 0.6 H %
(0-0.5)
Neutrophils % 89.6 H %
(42.2-75.2)
Lymphocytes % 4.1 L %
(20.5-51.1)
Sodium 121 L mmol/L
(135-145)
Chloride 90 L mmol/L
(98-107)
Carbon Dioxide 19 L mmol/L
(22-30)
Creatinine 0.4 L mg/dL
(0.6-1.0)
Glucose 127 H mg/dl
(70-99)
Serum Osmolality 257 L mOsm/kg
(275-300)
Total Bilirubin 1.6 H mg/dl
(0.2-1.3)
Urine Ketones 3+ A
(Negative)
Ur Occult Blood Reflex 1+ A
(Negative)
Urine RBC 3-6 A /HPF
(0-2)
Urine Bacteria (Reflex) Few A
(Negative)
Urine Osmolality 116 L mOsm/kg
(300-900)
Urine Albumin (Reflex) 3+ A
(Neg - Trace)
06/02/24 18:51
06/02/24 18:51
Vital Signs
Initial and Last Documented VS:
Initial Vital Signs
Temp Pulse Resp BP Pulse Ox
97.5 F 86 22 154/108 97
06/02/24 17:57 06/02/24 17:57 06/02/24 17:57 06/02/24 17:57 06/02/24 17:57
Last Documented Vital Signs
Temp Pulse Resp BP Pulse Ox
97.7 F 72 16 162/71 96
06/03/24 01:30 06/03/24 01:30 06/03/24 01:30 06/03/24 01:30 06/03/24 01:30
<JONES Simms - Last Filed: 06/03/24 01:37>
MDM/Problems Addressed
Differential Diagnosis Includes:
Not limited to pain from pelvic fracture, dehydration, virus colitis UTI less likely diverticulitis
MDM/Problems Addressed:
Patient is an 84-year-old female brought to the ER by family. Patient was recently here for pelvic fracture May 22 recently living with family now presents with continued pelvic pain not able to bear good weight. She also start with dry
heaving and vomiting last night. Patient presents awake alert she complains of pelvic pain also she is very tender in the lower abdomen and had discomfort when trying to urinate. She was found to be in urinary retention via bladder scan for
approximately 600 cc of urine. Ramos catheter was inserted for 650 cc of urine this was sent for urinalysis. Patient was medicated for nausea and pain. Patient was also given a dose of blood pressure medicine as she was not able to take her meds
because of nausea. Urinalysis negative for infection white count is minimally elevated at 17,000. Patient still photographer in lower abdomen despite Ramos in place will order ct abd.
CAse reviewed with nephrology Case reviewed with admitting hospitalist
CAT scan shows contrast extravasation in the right periureteral region originating from the right UPJ and extending lateral to the opacified right ureter these findings would confirm a partial tear at the right UPJ J with resultant contrast
extravasation.
Admitting hospitalist made aware ;admitting hospitalist contacted urology. I personally spoke to urology.
[id number]:DR Beebe at bedside eval pt
DR Beebe to take pt to OR
<JONES Simms - Last Filed: 06/03/24 01:37>
*Pulse Oximetry
Patient hypoxic: no
*EKG
Interpreted by ED Provider?: Yes
Interpretation: abnormal
Heart Rate: 84
Rate: normal
Rhythm: sinus and other (pvc intermittent )
*Critical Care Note
Total Time (30-74mins, 75-104mins- exclusive of procedures): Not Applicable
Data Reviewed
Review of Other/Old Records Reveals: Radiology Studies
ED Attending Note
<JONES Simms - Last Filed: 06/03/24 01:37>
-
Portions of this chart may have been created with voice recognition software.� Occasional wrong word or��sound alike� substitutions may have occurred due to the inherent limitations of voice recognition software.
<Austin Mendez DO - Last Filed: 06/02/24 22:20>
ED Attending Note
Patient seen and examined by attending physician: Yes
I performed the substantive portion of visit, reviewed & personally made and approve the management plan that is documented in note by myself or KRISH.: Yes
ED Attending Note:
I evaluated the patient at bedside. The patient has no right flank pain nor right CVA tenderness. She did have urinary retention with greater than 600 mL of urine. She feels significant proved after a Ramos catheter was placed. She does have
ongoing left-sided pain at the pelvis related to known pelvis fracture. CT imaging was obtained that she had ongoing symptoms which shows concern of UPJ rupture. The patient denies striking her right CVA region after the fall. Dr. Beebe is made
aware.
Discharge Plan
Departure
Patient Disposition: Admit
Date of Disposition: 06/02/24
Time of Disposition: 20:33
Admit to: Telemetry
Admit to doctor: hospitalist
Presentation/result/management discussed w/ accepting MD/DO: Hospitalist
Patient with high blood pressure during this ER visit?: Yes
Condition: Fair
Covid-19: Not Applicable
Discharge Problem:
Acute hyponatremia, Acute urinary retention, nausea and vomiting, partial tear right UPJ
Interventions
Interventions:
*Risk Screen - Suicide Last Done: 06/02/24 18:59
*General Assessment Last Done: 06/02/24 18:59
*Neglect/Abuse Screening Last Done: 06/02/24 18:59
*ED- Fall Risk Assessment Last Done: 06/02/24 18:59
*ED COVID-19 Vaccine History Last Done: 06/02/24 17:57
*Nursing Disposition Last Done: 06/02/24 23:02
RR-Mccyzp-Jytznzeggg Assessment Last Done: 06/02/24 18:59
Discharge Date and Time
Discharge Date/Time: 06/02/24 23:02
[2024-06-02] MEDS: NSS 1000 IV (18:48)
[2024-06-02] MEDS: ZOFRAN 4 MG IV (18:49)
[2024-06-02 19:00] LABS: % Basophils 0.3 % (0-2); % Eosinophils 0.1 % (0-6); % Immature Granulocytes 0.6 % (0-0.5); % Lymphocytes 4.1 % (20.5-51.1); % Monocytes 5.3 % (1.7-9.3); % Neutrophils 89.6 % (42.2-75.2); Absolute Basophils 0.1 10^3/uL (0-0.2); Absolute Immature Granulocytes 0.1 10^3/uL (0-0.05); Absolute Lymphocytes 0.7 10^3/uL (1.2-3.4); Hematocrit 40.9 % (37.0-47.0); Hemoglobin 14.6 g/dL (12.0-16.0); Mean Corp Hgb Conc. 35.7 g/dL (33.0-37.0); Mean Corpuscular Hgb 31.1 pg (27.0-31.0); Mean Corpuscular Volume 87.2 fL (81.0-99.0); Mean Platelet Volume 8.2 fL (7.4-10.4); Nucleated Red Blood Cells % 0 %; Platelet Count 413 10^3/uL (130-400); Red Blood Cell Count 4.69 10^6/uL (4.20-5.40); Red Cell Dist. Width 13.1 % (11.5-14.5); White Blood Cell Count 17.9 10^3/uL (4.8-10.8)
[2024-06-02] MEDS: MORPHINE SULFATE 2 MG IV ×2 (19:07→20:08)
[2024-06-02 19:17] LABS: ALT (SGPT) 15 U/L (0-35); AST (SGOT) 22 U/L (14-36); Albumin 4.4 g/dl (3.5-5.0); Alkaline Phosphatase 125 U/L (38-126); Blood Urea Nitrogen 13 mg/dl (7-17); Calcium 9.9 mg/dl (8.4-10.2); Carbon Dioxide 19 mmol/L (22-30); Chloride 90 mmol/L (98-107); Estimated Creatinine Clearance 50 ml/min; Glucose 127 mg/dl (70-99); Potassium 3.7 mmol/L (3.5-5.1); Sodium 121 mmol/L (135-145); Total Bilirubin 1.6 mg/dl (0.2-1.3); Total Protein 6.8 g/dl (6.3-8.2); eGFR > 60.00
[2024-06-02 19:24] LABS: Troponin I < 0.012 ng/ml
[2024-06-02 20:21] LABS: Urine Albumin 3+ (Neg - Trace); Urine Bilirubin Negative (Negative); Urine Character Clear (Clear); Urine Color Yellow; Urine Glucose Negative (Negative); Urine Ketone 3+ (Negative); Urine Leukocyte Negative (Negative); Urine Nitrite Negative (Negative); Urine Occult Blood 1+ (Negative); Urine Specific Gravity 1.015 (<1.030); Urine Urobilinogen Negative (Neg - 1+); Urine pH 6.5 (5.0-9.0)
[2024-06-02 20:25] LABS: Osmolality Urine 317 mOsm/kg (300-900)
--- NOTE | 2024-06-02 20:25 | HPS.HSE ---
Family Physician
-
Family Physician: * NONE
Chief Complaint
-
dry heaving
History of Present Illness
Patient is a 84-year-old female with past medical history significant for essential hypertension, atrial fibrillation, hyperlipidemia, depression, anxiety and Hx TIA who presented to [facility] ED for evaluation of dry heaving. Patient
reports that she has been dry heaving all day and came to ED for evaluation. Daughter at bedside to assist with HPI best she can as patient memory is not great. Daughter states that patient has been residing at her brothers house and all he has
reported is that patient has been fine without concern, patient was dropped at ED for evaluation by niece and she did not stay after dropping patient off. Patient states she has had left sided pain since pelvic fracture approximately 1.5 weeks ago,
she reports difficulty ambulating even with assistance of walker. Patient also states she recently has suffered from intermittent headaches, nausea, dry heaving, dry cough and exertional dyspnea. She reports she has had a significantly low appetite
for a while and intake is minimal with food but she does consume at least 3-4, 16-20 ounce bottles of water per day. She denies any constipation, diarrhea or urinary symptoms. In ED she was found to be retaining urine, Ramos placed and 600cc
obtained.
Medical History
Past Medical History
Past Medical History: Reports Other
Additional Past Medical History:
essential hypertension
atrial fibrillation
hyperlipidemia
depression
anxiety
asthma
COPD
Hx basal cell carcinoma
Hx melanoma
Hx TIA
Past Surgical History: Reports Other
Additional Past Surgical History:
Right knee meniscus [id number] in [place] 2012
section x 3
Appendectomy 1960
LTKA-10/26/19-[facility]
left knee replacement
Social History
Tobacco: Former Smoker
Alcohol: Occasional
Drug: None
Personal:
Living: With Family
Employment: Retired
Family History
Family History: Unable to Obtain (was unsure )
Allergies / Home Medications
Allergies reflects when Allergies were last updated in airpim.
Home Medications with original date entered in airpim
Allergy/Medication List:
Allergies
Allergy/AdvReac Type Severity Reaction Status Date / Time
adhesive tape Allergy BLISTERS Verified 06/02/24 18:02
Penicillins Allergy Rash/hives Verified 06/02/24 18:02
sertraline Allergy Unknown Verified 06/02/24 18:02
Home Medications
alprazolam 0.25 mg tablet 0.25 mg PO BID Mental Health/Anxiety 10/15/19
cetirizine 10 mg tablet 10 mg PO QPM Allergies 10/15/19
meclizine 25 mg tablet 25 mg PO BID vertigo 10/15/19
nebivolol 10 mg tablet 10 mg PO QPM Blood pressure 10/15/19
simvastatin 10 mg tablet 10 mg PO DAILY High cholesterol 10/15/19
zolpidem 5 mg tablet 5 mg PO HS Sleep 10/15/19
albuterol sulfate 90 mcg/actuation aerosol inhaler 2 puff inhalation R Q4HPRN PRN sob/wheezing 07/28/23
cholecalciferol (vitamin D3) 25 mcg (1,000 unit) capsule (Vitamin D3) 25 mcg PO DAILY Supplement 07/28/23
fluticasone propionate 45 mcg-salmeterol 21 mcg/actuation HFA inhaler (Advair HFA) 2 puff inhalation R BID Lung/Breathing Issues 07/28/23
krill 1,000 mg-omega-3 170 mg-dha 50 mg-epa 80 [id number] capsule (krill oil) 1 cap PO DAILY Supplement 07/28/23
amlodipine 2.5 mg tablet 2.5 mg PO DAILY 06/02/24
trazodone 50 mg tablet 50 mg PO HS 06/02/24
Review of Systems
-
History Source: Patient
Constitutional: Reports Fever and Chills
EENT: Reports No Symptoms
Respiratory: Reports Trouble Breathing (some exertional dyspnea )
Cardiac: Reports Chest Pain (left sided )
Abdomen/GI: Reports Abdominal Pain, Nausea, Vomiting and Anorexia
: Reports No Symptoms
Musculoskeletal: Reports Other (ambulatory dysfunction, left hip pain )
Skin: Reports No Symptoms
Neurological: Reports Headache and Weakness
Endocrine: Reports No Symptoms
Hematologic/Lymphatic: Reports No Symptoms
Psych: Reports No Symptoms
Physical Exam
Vital Signs
Vital Signs
Temp Pulse Resp BP Pulse Ox
97.5 F 76 15 210/85 94
06/02/24 17:57 06/02/24 19:00 06/02/24 19:00 06/02/24 19:00 06/02/24 19:03
Physical Exam
General: Well Developed, Well Nourished, No Apparent Distress, Comfortable and Conversant
HEENT: NormoCephalic, Moist mucous membranes, Atraumatic, [place] Conjunctivae, Nose Appears Normal, Ears Appear Normal and Hearing Impaired
Respiratory: Clear
Cardiac: S1/S2 and Regular Rhythm; No Murmur or Rub
Breast: Deferred by me
GI: Soft, Non Tender, Non Distended and Normal Bowel Sounds; No Organomegaly
Rectal: Deferred by Provider
Genito-urinary: Clear Urine and Ramos
Musculoskeletal: No Clubbing, No Cyanosis and No Edema
Skin: Warm and IV/Catheter Site; No Rash
Neuro: Awake, Alert and Nonfocal/grossly intact
Psych: Calm
Laboratory Results
-
06/02/24 18:51
06/02/24 18:51
Laboratory Results
Total Bilirubin 1.6 mg/dl (0.2-1.3) H 06/02/24 18:51
AST 22 U/L (14-36) 06/02/24 18:51
ALT 15 U/L (0-35) 06/02/24 18:51
Alkaline Phosphatase 125 U/L (38-126) 06/02/24 18:51
Troponin I < 0.012 ng/ml 06/02/24 18:51
Data Reviewed
-
CT Scan: Report Reviewed by me (Abd/Pel: There are branching small nodular opacities within both lower lungs, suggesting small airway pneumonitis, which could be acute and/or chronic. Mild bronchiectasis in the right middle lobe. Band of linear
atelectasis within the right middle lobe. As described, findings suggesting injury at)
Medical Tests (Nuc Med, Echo, EKG etc): Report Reviewed by me (EKG: NORMAL SINUS RHYTHM MINIMAL VOLTAGE CRITERIA FOR LVH, MAY BE NORMAL VARIANT ( Sokolow-Santos ) NONSPECIFIC ST ABNORMALITY PROLONGED QT)
Lab Data: Labs Reviewed by me (WBC 17.9, Neut 89.6, Na+ 121, )
Impression/Plan
-
IMPRESSION/PLAN:
#hyponatremia
Na+ 121, Serum Osmo 257, Urine Osmo 317
Patient bladder scan >600, Ramos placed with 650cc out
clear urine continuing to drain
- Admit to telemetry
- monitor electrolytes
- fluid restriction 1L
- Consult nephrology
#acute urinary retention
Abd/Pel CT: There are branching small nodular opacities within both lower lungs, suggesting small airway pneumonitis, which could be acute and/or chronic.
Mild bronchiectasis in the right middle lobe. Band of linear atelectasis within the right middle lobe.
As described, findings suggesting injury at the right ureteropelvic junction with perinephric and periureteral edema, and possible early contrast extravasation. The patient will return for additional delayed images.
Cholelithiasis. No CT findings to suggest acute cholecystitis.
Fractures of the left superior pubic ramus and at the junction of the left inferior pubic ramus and ischium. Left sacral alar fracture.
Additional delayed CT images of the abdomen and pelvis are performed, 41 minutes after the initial scan.
These additional images confirm contrast extravasation in the right periureteral region, originating from the right ureteropelvic junction and extending lateral to the opacified right ureter which is inferior to the right
ureteropelvic junction. These findings would confirm a partial tear at the right ureteropelvic junction with resultant contrast extravasation.
Bladder scan with retention: Ramos placed and 600cc obtained
- Ramos placed
- Consult urology
#essential hypertension
- continue amlodipine and nebivolol
- PRN hydralazine
- Enalapril q6 with hold parameters
#atrial fibrillation
- continue nebivolol
#depression
#anxiety
- continue alprazolam and trazodone
#asthma
#COPD
- continue albuterol PRN and cetirizine
#hyperlipidemia
- continue simvastatin
#vertigo
- continue meclizine
#Hx basal cell carcinoma
#Hx melanoma
#Hx TIA
Code status: DNR
DVT prophylaxis: Lovenox sq
[2024-06-02 20:29] LABS: Urine Bacteria Few (Negative)
[2024-06-02 20:31] LABS: Urine Sodium 70 mmol/L (30-90)
[2024-06-02 20:56] LABS: Osmolality Serum 257 mOsm/kg (275-300)
--- NOTE | 2024-06-02 21:02 | W.PN.UPDATE ---
Update Note
Progress Note Update
Patient seen in conjunction with JONES. I agree the findings on history and physical. I concur with assessment plan unless stated otherwise.
Briefly, this is a 84-year-old female with past medical history significant for hypertension,, mild pulmonary hypertension, COPD, hyperlipidemia, anxiety, history of melanoma and M�ni�re's disease, recent mechanical fall and left pubic rami fracture
present to the emergency department with 1 day history of persistent dry heaves. She also reports approximately 2 days of difficulty urinating. She reports she has urinary sensation but she is unable to urinate. She denies dysuria. She denies
any hematuria. She denies flank pain.
Patient denied any right upper quadrant pain. She has not had any vomiting or diarrhea she denies any history of biliary disease.
She reports that she has been forgetting to take her medications. She cannot tell me the last time she actually took her blood pressure medications. She also reports that she has been having some dry mouth. Usually she is known to drink large
quantities of water but over the last few days she says she has been drinking around 4 L of water daily.
On exam she has trace ankle effusions bilaterally.
In the emergency department patient was found to be hypertensive to the 220s systolic, pulse of 76, she was satting 94% on room air and was afebrile. ECG showed normal sinus rhythm at a rate of 84, troponin was negative. White count was 17.9,
hemoglobin and platelets were normal. Electrolytes were notable for a sodium of 121 but otherwise unremarkable with normal BUN and creatinine. UA was negative. Total bilirubin was slightly elevated 1.6 but LFTs were unremarkable.
Serum osmolality was 257, urine osmolality was 318 with a urine sodium of 70.
1. Uncontrolled hypertension - Non-compliance and pain control
- admit to telemetry
- IV hydralazine now then prn for SBP > 180
- holding additional bp meds pending surgery (see urinary retention below)
- restart her home amlodipine 2.5 and bystolic 10
- pain control
2. Hyponatremia - Hypoosmoloar hyponatremia, euvolemic. Urine osm elevated and urine Na elevated on initial urine. However after placement of Rmaos urine output became very very clear suggestive of auto-diuresis and auto correction possibly after
pain medications. Known SIADH. Drinks 3 - 6 L of water. Dry heaves but no vomiting and no diarrhea. Suspect pain and increased free water intake
- she appears to be in auto aquaresis, will repeat urine osm
- fluid restriction to 1 L / day
- nephrology consult
- not on any exacerbating agents
3. Pain - Left hip mostly. Cholelithiasis on CT. LFTs mostly normal with slight elevtion of bili.
- no current RUQ pain signs of infection except leukocytosis
- pain control and monitoring
- trend lfts, if stable, outpatient surgical consultation as needed.
4. Acute urinary retention - s/p indwelling catheter
- monitor output
- pain control and voiding trial
- CT A/P with additional images showing contrast extravasation in the right periureteral region, originating from the right ureteropelvic junction and extending lateral to the opacified right ureter which is inferior to the right ureteropelvic
junction c/w partial tear at the right ureteropelvic junction with extravasation.
- NPO
- urology consulted. Dr. Beebe taking patient to OR. No known recent trauma, had fall in late May,
- post op level of care to be determined
PT evaluation as she may need STR.
DVT PPX - lovenox sq
Code status - DNR
[2024-06-02] MEDS: BYSTOLIC 10 MG PO (21:06)
[2024-06-02 21:40] LABS: Osmolality Urine 116 mOsm/kg (300-900)
--- NOTE | 2024-06-02 22:54 | CON.MD ---
Consultation - Medical
-
see dictated note
pt recently reloacted from [place]- denies any prior gu hx
presented to ER with left hip fx after sliding and falling off toilet
sent home
now > 7 days later- presents to ER with continued pelvic pain- but also abd distension and nausea- mild right flank pain
pelayo placed- 600cc clear urine
ct performed- shows extrav of urine from prox right ureter- contrast is seen going along the whole course of the right ureter- mild hydro
reviewed with pt and son
have rec OR for cysto/retrograde and stent- if unsuccessful- would need attempt at perc placement
risks, benefits, alternatives and disabilities reviewed
to OR
--- NOTE | 2024-06-02 23:48 | W.IMMPOSTOP ---
Surgical Immed Post Op Note
-
Primary Surgeon:
kristin
Assisting Surgeon:
Pre-op Diagnosis:
right ureteral leak- ? etiology
Post-op Diagnosis:
same
Procedure Performed:
cysto/ right retrograde/right ureteral stent
Anesthesia Type:
gen
Specimen / Cultures:
none
Estimated Blood Loss:
1cc
Complications:
none
Operative Findings:
right ureteral stent and pelayo placed
to pacu in stable condition
son updated by phone
[2024-06-03] VITALS (14 sets, daily range): BP systolic 139–179; BP diastolic 60–85; PULSE 79–84; O2SAT 93–94; BMI 22.1
[2024-06-03] MEDS: DESYREL 50 MG PO ×2 (00:55→21:10)
[2024-06-03] MEDS: VASOTEC 0.625 MG IV ×4 (00:55→18:14)
[2024-06-03] MEDS: MORPHINE SULFATE 2 MG IV ×4 (01:23→21:10)
--- NOTE | 2024-06-03 02:02 | PTCARENOTE ---
[facility] in a bed. Pt arrived with pelayo putting out pale yellow urine. Admission questions answered. Bed locked and in lowest position. Pt oriented to room and call gonzalez in reach.
Spoke with ROD BUSTER Diamond Krishnan regarding Na level of 121 drawn at 1851. Since pt was already treated with fluids ok to wait for AM lab results. No new orders at this time. Care ongoing.
[2024-06-03 06:40] LABS: Hematocrit 39.3 % (37.0-47.0); Hemoglobin 13.7 g/dL (12.0-16.0); Mean Corp Hgb Conc. 34.9 g/dL (33.0-37.0); Mean Corpuscular Hgb 30.9 pg (27.0-31.0); Mean Corpuscular Volume 88.7 fL (81.0-99.0); Mean Platelet Volume 8.9 fL (7.4-10.4); Platelet Count 431 10^3/uL (130-400); Red Blood Cell Count 4.43 10^6/uL (4.20-5.40); Red Cell Dist. Width 13.3 % (11.5-14.5); White Blood Cell Count 12.4 10^3/uL (4.8-10.8)
[2024-06-03 07:08] LABS: Blood Urea Nitrogen 12 mg/dl (7-17); Calcium 9.6 mg/dl (8.4-10.2); Carbon Dioxide 20 mmol/L (22-30); Chloride 98 mmol/L (98-107); Estimated Creatinine Clearance 50 ml/min; Glucose 133 mg/dl (70-99); Potassium 3.9 mmol/L (3.5-5.1); Sodium 131 mmol/L (135-145); eGFR > 60.00
--- NOTE | 2024-06-03 07:57 | W.PN.URO.CBU ---
Today's Communication / Plan
-
advance diet and activity
monitor labs and ux
continue pelayo and stent
Assessment / Plan
-
pelvic fx
urinary retention
right ureteral leak- ? due to trauma/retention with reflux or passed stone (small stone seen in bladder at time of cysto)
pt stent- feels better
from gu standpoint- await ux- continue pelayo and stent
will need to be discharged with cath- then will arrange outpt urogram in 10-14 days and determine timing of stent and pelayo removal
leg bag teaching today and vn consult for home pelayo monitoring if plan is for discharge home vs snif
Diagnosis
-
Date of Service: June 03, 2024
-
Patient Diagnosis:
urinary retention
right ureteral leak
Post Op Day:
cysto/ right ureteral stent 3/5
Subjective
-
pt stable overnight- feels better
minimal abd pain- no fevers
urine clear
Objective
-
Vital Signs
Temp Pulse Resp BP Pulse Ox
97.8 F 45 18 142/69 98
06/03/24 03:30 06/03/24 06:32 06/03/24 03:30 06/03/24 06:32 06/03/24 03:30
Intake and Output
06/02/24 06/03/24 06/04/24
06:59 06:59 06:59
Intake Total 580 / 580
Output Total 1600 / 1600
Balance -1020 / -1020
Intake:
Oral fluids 480 / 480
IV fluids (Total) 100 / 100
NSS 100 / 100
Output:
Urine, Pelayo 1600 / 1600
Laboratory Results
06/03/24 05:36
06/03/24 05:36
Physical Exam
-
General - no acute distress
Abdomen - soft, non-tender
Genitalia - pelayo in place
[2024-06-03] MEDS: ANTIVERT 25 MG PO ×2 (09:05→20:05)
[2024-06-03] MEDS: LIPITOR 10 MG PO (09:05)
[2024-06-03] MEDS: VITAMIN D3 (cholecalciferol) 25 MCG PO (09:06)
[2024-06-03] MEDS: NORVASC 2.5 MG PO (09:06)
[2024-06-03] MEDS: XANAX 0.25 MG PO ×2 (09:06→20:05)
[2024-06-03] MEDS: FLUSH (NSS) 1 FLUSH IV ×2 (09:07→15:57)
--- NOTE | 2024-06-03 11:06 | CM ---
Addendum entered by Vanesa Del Valle 06/03/24 16:09:
PT recs SNF; OT recs SNF vs HH
Spoke with pt and daughter at bedside; aware of recommendations
Given PAC list to review
Will f/u with pt/family in AM for choices
Will need auth
Plan - anticipate SNF when medically ready
Original Note:
Met with pt and her son at bedside
Pt reports she recently moved back to [facility] and is currently staying with her son in an in-law suite; 2 steps to enter, 1 step down to BR
address - [address] [place] [address], [place] [address]. Son 's phone # - [phone]
Pt reports previously independent with adls, no device, driving
DME - rolling walker, wheel chair, single point cane
SNF - [facility] in past
HH - no past hx
Has ride at d/c
PCP - none. Given information for Residency clinic at the [facility]
Pharm - [facility]
CM consult - VN for Ramos care
[facility] to [id number] Liaison for home care needs
Discussed with pt may need to see PCP prior to VN services being provided. Will update Liaison
PT/OT eval pending
Given IMM
Plan - anticipate home with VN
--- NOTE | 2024-06-03 13:06 | VNURNOTE ---
Home Health Liaison met with patient at bedside. Explained [facility] nurse/therapy, visits, schedule and homebound status. Patient is agreeable and understands that visits at home will be 2-3 x per week to assess and teach medical management. Patient
is not current with a PCP. Advised her to make appointment with Residency Clinic when aware of DC. Patient has brochure. Patient stated she wasn't sure how she'd get to clinic. This author reached out to son Anthony. Explained above and texted him
contact # for Residency Clinic. He will make appointment for patient. Confirmed with Urology Dr Beebe they will sign for VN until pt starts w/PCP or Res. Clinic. Patient is aware that [facility] will contact them for start of care in 1-2 days after
discharge from , son aware as well. [facility] referral completed in [facility].
--- NOTE | 2024-06-03 13:57 | W.PN.HOSP.TC ---
Today's Communication/Plan
-
Follow urine cultures and CBC/temp
Continue with 1 L FR and trend BMP
PT evaluation
Assessment / Plan
Assessment / Plan
#Acute urinary retention
#Right ureteral leak
-Presented with acute inability to pass urine; associated with left hip pain with recent fall in May
-Ramos catheter was placed upon arrival with improved urinary output
-CT A/P showed contrast extravasation from the right ureter concerning for partial tear
-Taken to the OR on 06/02/2024 for cystoscopy and right ureteral stent placement
-Currently not on antibiotics, urine cultures pending
-Ramos will need maintained for 10 to 14 days with OP TOV
-Follow cultures, trend CBC and temperature curve
#Euvolemic hyponatremia
#Polydipsia
-Patient states she was drinking four 16 ounce water bottles daily, 64 ounces per day
-Suspect that with height 5 foot and BMI 22 that 64 ounce per day may be excessive
-Initial sodium was 121; urine osmolality 116, not consistent with inappropriate ADH
-Was started on 1 L FR and maintenance IVF with sodium up to 131 today
-No signs or symptoms of mental status change/central pontine myelinolysis
-Trend BMP daily
#Accelerated hypertension
-Suspect this was secondary to pain and discomfort from urine retention
-Chronic hypertension with no known systemic complications
-Home regimen includes amlodipine 2.5 mg, nebivolol 10 mg daily
-Blood pressure has since improved with improved pain and resolution of urine retention
-Continue to monitor vitals on current regimen
#Left superior pubic ramus fracture
#Left inferior pubic ramus/ischium fracture
#Left sacral alar fracture
#Mechanical fall in May
-Nonoperative fractures, will consult PT and provide analgesia
-Weightbearing as tolerated for now
-OP orthopedics follow-up
#COPD
#Mild pulmonary hypertension
-Home medications include albuterol sulfate inhaler every 4 hours as needed
-Not currently on any maintenance LABA/LAMA/ICS; no history of intubation or recent exacerbation
-Remains on room air currently, no signs of COPD flare
#Cholelithiasis
-Do not anticipate these are symptomatic or associated with inflammation
-Presented with a very mild elevation of bilirubin, T. bili 1.6 with normal transaminases
-Will continue to trend LFTs and monitor clinically for signs of choledocholithiasis
#Dyslipidemia
-No known history of ASCVD
-Home regimen includes simvastatin 10 mg
#H/O melanoma
-No known signs of recurrence
DVT prophylaxis: Lovenox
Diet: Regular, 48 oz FR
CODE STATUS: DNR
Anticipated Discharge: > 48 hours
Subjective/Interval History
-
Date of Service: June 03, 2024
Seen and examined at the bedside. No acute events reported overnight. AFVSS as of this
Sodium increased from 1 22-1 31 with fluid restriction and maintenance IVF
She states she feels generally well and denies any new complaints this morning
Objective Data
-
Labs:
Laboratory Results
06/03/24
05:36
WBC 12.4 H
Hgb 13.7
Hct 39.3
Plt Count 431 H
Sodium 131 L D
Potassium 3.9
Chloride 98
Carbon Dioxide 20 L
BUN 12
Creatinine 0.6
Glucose 133 H
Calcium 9.6
Vital Signs:
Vital Signs
Temp Pulse Resp BP Pulse Ox
97.6 F 86 18 154/76 95
06/03/24 11:15 06/03/24 12:54 06/03/24 11:15 06/03/24 12:54 06/03/24 11:15
I&O
06/02/24 06/03/24 06/04/24
06:59 06:59 06:59
Intake Total 580 / 580
Output Total 1600 / 1600
Balance -1020 / -1020
Review of Systems
-
History Source: Patient
All other systems: Reviewed and negative
Physical Exam
-
General: Well Developed, No Apparent Distress and Comfortable
HEENT: Normocephalic, Atraumatic and Moist Mucous Membranes
Respiratory: Clear to Auscultation and Non Labored Respirations
Cardiac: Regular Rhythm and S1/S2; Negative Murmur, Rub or Gallop
GI: Soft, Nontender, Nondistended and Normal Bowel Sounds
Musculoskeletal: No Clubbing, No Cyanosis and No Edema
Skin: Warm, Dry and Normal Turgor; Negative Rash
Neuro: AO x 3 and Nonfocal/Grossly Intact
Psych: Calm
Data Reviewed
-
Labs: Labs Reviewed by me and Discussed with Patient
[2024-06-03] MEDS: LOVENOX 40 MG SC (18:15)
[2024-06-03] MEDS: ZYRTEC 10 MG PO (18:16)
[2024-06-03] MEDS: BYSTOLIC 10 MG PO (18:16)
[2024-06-03] MEDS: FLUSH (NSS) 2 FLUSH IV (18:16)
--- NOTE | 2024-06-03 18:47 | PTCARENOTE ---
attempted to teach pt Ramos catheter leg bag maintainence and care. pt requested daughter be present for teaching. as day progressed pt has decided she would like to go to Rehab/Snf for therapy and therefore doesn't need to know leg bag teaching.
care ongoing.
[2024-06-03] MEDS: SENOKOT 8.6 MG PO (21:10)
[2024-06-03] MEDS: COLACE 100 MG PO (21:17)
[2024-06-04] MEDS: VASOTEC 0.625 MG IV ×4 (00:20→18:13)
[2024-06-04 03:22] VITALS: BP 166/88
[2024-06-04] MEDS: MORPHINE SULFATE 2 MG IV ×2 (06:19→11:39)
[2024-06-04 06:26] LABS: % Basophils 0.4 % (0-2); % Eosinophils 0.2 % (0-6); % Immature Granulocytes 0.6 % (0-0.5); % Lymphocytes 12.2 % (20.5-51.1); % Monocytes 9.7 % (1.7-9.3); % Neutrophils 76.9 % (42.2-75.2); Absolute Basophils 0.1 10^3/uL (0-0.2); Absolute Immature Granulocytes 0.1 10^3/uL (0-0.05); Absolute Lymphocytes 1.7 10^3/uL (1.2-3.4); Absolute Monocytes 1.3 10^3/uL (0.1-0.6); Absolute Neutrophils 10.4 10^3/uL (1.4-6.5); Hematocrit 36.3 % (37.0-47.0); Hemoglobin 12.7 g/dL (12.0-16.0); Mean Corpuscular Hgb 31.5 pg (27.0-31.0); Mean Corpuscular Volume 90.1 fL (81.0-99.0); Nucleated Red Blood Cells % 0 %; Platelet Count 398 10^3/uL (130-400); Red Blood Cell Count 4.03 10^6/uL (4.20-5.40); Red Cell Dist. Width 13.7 % (11.5-14.5); White Blood Cell Count 13.5 10^3/uL (4.8-10.8)
[2024-06-04 07:02] LABS: ALT (SGPT) 12 U/L (0-35); AST (SGOT) 14 U/L (14-36); Albumin 3.6 g/dl (3.5-5.0); Alkaline Phosphatase 102 U/L (38-126); Blood Urea Nitrogen 25 mg/dl (7-17); Calcium 9.6 mg/dl (8.4-10.2); Carbon Dioxide 24 mmol/L (22-30); Chloride 98 mmol/L (98-107); Estimated Creatinine Clearance 38 ml/min; Glucose 128 mg/dl (70-99); Potassium 3.7 mmol/L (3.5-5.1); Sodium 132 mmol/L (135-145); Total Bilirubin 0.8 mg/dl (0.2-1.3); Total Protein 5.5 g/dl (6.3-8.2); eGFR > 60.00
--- NOTE | 2024-06-04 07:39 | W.PN.URO.CBU ---
Today's Communication / Plan
-
continue pelayo and stent
track wbc
Assessment / Plan
-
pelvic fx
urinary retention
right ureteral leak- ? due to trauma/retention with reflux or passed stone (small stone seen in bladder at time of cysto)
pt stent- feels better
from gu standpoint- await ux- continue pelayo and stent
will need to be discharged with cath- then will arrange outpt urogram in 10-14 days and determine timing of stent and pelayo removal
vn consult
at time of discharge- unless other antibx ordered- would discharge on flomax 0.4mg po daily and macrobid 100mg qhs- each for 30 days- then should call dr foster's office to arrange outpt radiology and follow up
Diagnosis
-
Date of Service: June 04, 2024
-
Patient Diagnosis:
urinary retention
right ureteral leak
Post Op Day:
cysto/ right ureteral stent 3/
Subjective
-
pt says she feels ok
no pain
wants to be more active
urine clear to light pink
no fevers/wbc still mildly elevated
Objective
-
Vital Signs
Temp Pulse Resp BP Pulse Ox
97.5 F 75 20 161/74 94
06/04/24 03:22 06/04/24 03:22 06/04/24 03:22 06/04/24 05:03 06/04/24 03:22
Intake and Output
06/03/24 06/04/24 06/05/24
06:59 06:59 06:59
Intake Total 580 / 580 1260 / 1260
Output Total 1600 / 1600 1350 / 1350
Balance -1020 / -1020 -90 / -90
Intake:
Oral fluids 480 / 480 1260 / 1260
IV fluids (Total) 100 / 100
NSS 100 / 100
Output:
Urine, Pelayo 1600 / 1600 1350 / 1350
Laboratory Results
06/04/24 05:29
06/04/24 05:29
Review of Systems
-
Constitutional: Fatigue
Respiratory: Cough
Cardiac: No Symptoms
Abdomen/GI: No Symptoms
: Other (pelayo)
Physical Exam
-
General - no acute distress
Abdomen - soft, non-tender
Genitalia - pelayo
[2024-06-04] MEDS: LIPITOR 10 MG PO (07:50)
[2024-06-04] MEDS: VITAMIN D3 (cholecalciferol) 25 MCG PO (07:50)
[2024-06-04] MEDS: ANTIVERT 25 MG PO ×2 (07:50→20:14)
[2024-06-04] MEDS: XANAX 0.25 MG PO ×2 (07:50→20:14)
[2024-06-04] MEDS: NORVASC 2.5 MG PO (07:50)
[2024-06-04 08:00] VITALS: BP 135/50
[2024-06-04] MEDS: COLACE 100 MG PO ×2 (08:02→20:26)
[2024-06-04] MEDS: TYLENOL 650 MG PO (08:49)
--- NOTE | 2024-06-04 10:38 | PN.CDI ---
CDI
- -
CDI:
Physician Documentation Request
Admit Date: 06/02/24 22:20
Dear Doctor Hai,
Please review the following and provide your response in the progress notes.
Clinical Indicators:
Pt admitted with acute urinary retention, right ureteral leak and hyponatremia.
Pt's past medical history includes Afib.
If possible, please provide further specificity regarding atrial fibrillation, such as:
Paroxysmal atrial fibrillation - terminates spontaneously or with intervention within 7 days of onset
Persistent atrial fibrillation - episodes of continuous AF that last more than 7 days and do not self-terminate
Permanent atrial fibrillation - when a decision has been made to accept the presence of AF and there is no further attempt to restore or maintain sinus rhythm
Other - please specify
Unable to further specify
Use of terms such as suspected, likely, concern for, or probable (associated with a specific diagnosis that is being evaluated, monitored, or treated as if it exists) are acceptable and can be coded in the inpatient setting, when documented at the
time of discharge.
Thank you,
Criss Pinto RN, BSN
CDI Specialist
[employer]
Please use your independent medical judgment in providing your response.
[2024-06-04 11:20] VITALS: BP 121/59
--- NOTE | 2024-06-04 12:23 | W.PN.HOSP.TC ---
Addendum entered and electronically signed by Jose Valles DO 06/04/24 12:28:
CDI: Paroxysmal AF per history, not on anticoagulants. Maintain with nebivolol for rate/rhythm control. Has maintained sinus rhythm here
Original Note:
Today's Communication/Plan
-
Maintain Ramos catheter and plan for OP trial of void
Follow urine culture, CBC, temperature curve
Encourage p.o. intake and monitor BMP
Oxycodone 5 PRN for pelvic fracture related pain
SNF planning
Assessment / Plan
Assessment / Plan
#Acute urinary retention
#Right ureteral leak
-Presented with acute inability to pass urine; associated with left hip pain with recent fall in May
-Ramos catheter was placed upon arrival with improved urinary output
-CT A/P showed contrast extravasation from the right ureter concerning for partial tear
-Taken to the OR on 06/02/2024 for cystoscopy and right ureteral stent placement
-Currently not on antibiotics, urine cultures pending
-Ramos will need maintained for 10 to 14 days with OP TOV
-Follow cultures, trend CBC and temperature curve
#Hypovolemic hyponatremia
-Initial sodium was 121; urine osmolality 116, not consistent with inappropriate ADH
-Suspect she was dry as sodium improved to 131 with IV fluids over 1 days time
-No signs or symptoms of mental status change/central pontine myelinolysis
-Sodium most recently 131�132, continue to trend BMP and encourage p.o. intake
#Accelerated hypertension
-Suspect this was secondary to pain and discomfort from urine retention
-Chronic hypertension with no known systemic complications
-Home regimen includes amlodipine 2.5 mg, nebivolol 10 mg daily
-Blood pressure has since improved with improved pain and resolution of urine retention
-Continue to monitor vitals on current regimen
#Left superior pubic ramus fracture
#Left inferior pubic ramus/ischium fracture
#Left sacral alar fracture
#Mechanical fall in May
-Nonoperative fractures, will consult PT and provide analgesia
-Weightbearing as tolerated for now
-OP orthopedics follow-up
-Start oxycodone 5 mg for moderate to severe pain
#COPD
#Mild pulmonary hypertension
-Home medications include albuterol sulfate inhaler every 4 hours as needed
-Not currently on any maintenance LABA/LAMA/ICS; no history of intubation or recent exacerbation
-Remains on room air currently, no signs of COPD flare
#Cholelithiasis
-Do not anticipate these are symptomatic or associated with inflammation
-Presented with a very mild elevation of bilirubin, T. bili 1.6 with normal transaminases
-Will continue to trend LFTs and monitor clinically for signs of choledocholithiasis
#Dyslipidemia
-No known history of ASCVD
-Home regimen includes simvastatin 10 mg
#H/O melanoma
-No known signs of recurrence
DVT prophylaxis: Lovenox
Diet: Regular
CODE STATUS: DNR
Anticipated Discharge: Within 24 hours
Subjective/Interval History
-
Date of Service: June 04, 2024
Seen and examined at the bedside. No acute events reported overnight. AFVSS as of this morning.
She does have some pelvic pain related to her fractures, 10/07 and not improved significantly with Tylenol.
She otherwise denies any new complaints as of this morning. Urine output stable with Ramos in place.
Objective Data
-
Labs:
Laboratory Results
06/04/24
05:29
WBC 13.5 H
Hgb 12.7
Hct 36.3 L
Plt Count 398
Sodium 132 L
Potassium 3.7
Chloride 98
Carbon Dioxide 24
BUN 25 H
Creatinine 0.8
Glucose 128 H
Calcium 9.6
Total Bilirubin 0.8
AST 14
ALT 12
Alkaline Phosphatase 102
Vital Signs:
Vital Signs
Temp Pulse Resp BP Pulse Ox
97.5 F 70 16 121/59 95
06/04/24 11:20 06/04/24 11:20 06/04/24 11:20 06/04/24 11:20 06/04/24 11:20
I&O
06/03/24 06/04/24 06/05/24
06:59 06:59 06:59
Intake Total 580 / 580 1260 / 1260
Output Total 1600 / 1600 1350 / 1350 450 / 450
Balance -1020 / -1020 -90 / -90 -450 / -450
Review of Systems
-
History Source: Patient
All other systems: Reviewed and negative
Physical Exam
-
General: Well Developed, No Apparent Distress and Comfortable
HEENT: Normocephalic, Atraumatic and Moist Mucous Membranes
Respiratory: Clear to Auscultation and Non Labored Respirations
Cardiac: Regular Rhythm and S1/S2; Negative Murmur, Rub or Gallop
GI: Soft, Nontender, Nondistended and Normal Bowel Sounds
Genito-urinary: Clear Urine and Ramos
Musculoskeletal: No Clubbing, No Cyanosis, No Edema and Other (No gross deformity)
Skin: Warm, Dry and Normal Turgor; Negative Rash
Neuro: AO x 3 and Nonfocal/Grossly Intact
Psych: Calm
Data Reviewed
-
Labs: Labs Reviewed by me and Discussed with Patient
[2024-06-04] MEDS: DULCOLAX 10 MG RECTAL (13:34)
[2024-06-04] MEDS: ROXICODONE 5 MG PO (13:34)
--- NOTE | 2024-06-04 13:52 | CM ---
Addendum entered by Vanesa Del Valle 06/04/24 15:09:
Pt accepted to [facility] for tomorrow
Family aware - agree with facility
Auth initiated in [employer]
Auth approved - Certified in total
Certificate # [id number]
Approved for SNF level Care
Start date 06/05-06/11/2024
Updated Estela at [facility] - given auth information
Estela available over weekend
Plan - anticipate transfer to [facility] tomorrow if medically ready
R - [phone]
F - [phone]
Original Note:
Chart reviewed; met with pt/daughter
SNF options are [facility], [facility], and [facility]. [facility] is first choice
Referral sent in [facility]
Spoke with Estela at [facility] - will review
Will require auth when bed obtained
Plan - SNF when bed/auth obtained
[2024-06-04 16:05] VITALS: BP 110/53
[2024-06-04] MEDS: LOVENOX 40 MG SC (18:13)
[2024-06-04] MEDS: ZYRTEC 10 MG PO (18:14)
[2024-06-04] MEDS: BYSTOLIC 10 MG PO (18:15)
[2024-06-04 19:00] VITALS: BP 153/72
[2024-06-04] MEDS: DESYREL 50 MG PO (21:14)
[2024-06-04 23:00] VITALS: BP 113/48
[2024-06-05] MEDS: VASOTEC 0.625 MG IV ×3 (00:09→11:58)
[2024-06-05 03:00] VITALS: BP 147/71
[2024-06-05] MEDS: TYLENOL 650 MG PO (06:07)
[2024-06-05 06:35] LABS: % Basophils 1.2 % (0-2); % Eosinophils 1.7 % (0-6); % Immature Granulocytes 0.5 % (0-0.5); % Lymphocytes 16.4 % (20.5-51.1); % Monocytes 8.6 % (1.7-9.3); % Neutrophils 71.6 % (42.2-75.2); Absolute Basophils 0.1 10^3/uL (0-0.2); Absolute Eosinophils 0.2 10^3/uL (0-0.7); Absolute Immature Granulocytes 0.1 10^3/uL (0-0.05); Absolute Lymphocytes 1.8 10^3/uL (1.2-3.4); Absolute Monocytes 0.9 10^3/uL (0.1-0.6); Absolute Neutrophils 7.8 10^3/uL (1.4-6.5); Hematocrit 34.6 % (37.0-47.0); Hemoglobin 11.9 g/dL (12.0-16.0); Mean Corp Hgb Conc. 34.4 g/dL (33.0-37.0); Mean Corpuscular Hgb 31.6 pg (27.0-31.0); Mean Corpuscular Volume 91.8 fL (81.0-99.0); Mean Platelet Volume 8.9 fL (7.4-10.4); Nucleated Red Blood Cells % 0 %; Platelet Count 361 10^3/uL (130-400); Red Blood Cell Count 3.77 10^6/uL (4.20-5.40); Red Cell Dist. Width 13.9 % (11.5-14.5)
[2024-06-05 06:58] LABS: Blood Urea Nitrogen 21 mg/dl (7-17); Calcium 9.1 mg/dl (8.4-10.2); Carbon Dioxide 25 mmol/L (22-30); Chloride 100 mmol/L (98-107); Estimated Creatinine Clearance 50 ml/min; Glucose 89 mg/dl (70-99); Sodium 132 mmol/L (135-145); eGFR > 60.00
[2024-06-05 07:52] VITALS: BP 135/63
[2024-06-05] MEDS: NORVASC 2.5 MG PO (08:08)
[2024-06-05] MEDS: XANAX 0.25 MG PO (08:08)
[2024-06-05] MEDS: LIPITOR 10 MG PO (08:08)
[2024-06-05] MEDS: VITAMIN D3 (cholecalciferol) 25 MCG PO (08:08)
[2024-06-05] MEDS: ANTIVERT 25 MG PO (08:09)
--- NOTE | 2024-06-05 11:19 | W.PN.HOSP.TC ---
Addendum entered and electronically signed by Jose Valles DO 06/05/24 11:32:
DC on flomax 0.4 mg QD and Macrobid 100 mg HS for 30 days per urology recs.
Original Note:
Today's Communication/Plan
-
Discharge to SNF
OP follow-up with urologist for trial of void
Tylenol with codeine as needed for analgesics
BMP in 1 week
Assessment / Plan
Assessment / Plan
#Acute urinary retention
#Right ureteral leak
-Presented with acute inability to pass urine; associated with left hip pain with recent fall in May
-Ramos catheter was placed upon arrival with improved urinary output
-CT A/P showed contrast extravasation from the right ureter concerning for partial tear
-Taken to the OR on 06/02/2024 for cystoscopy and right ureteral stent placement
-Currently not on antibiotics, urine cultures pending
-Ramos will need maintained for 10 to 14 days with OP TOV
-Follow cultures, trend CBC and temperature curve
#Hypovolemic hyponatremia
-Initial sodium was 121; urine osmolality 116, not consistent with inappropriate ADH
-Suspect she was dry as sodium improved to 131 with IV fluids over 1 days time
-No signs or symptoms of mental status change/central pontine myelinolysis
-Sodium most recently 131�132, continue to trend BMP and encourage p.o. intake
#Accelerated hypertension
-Suspect this was secondary to pain and discomfort from urine retention
-Chronic hypertension with no known systemic complications
-Home regimen includes amlodipine 2.5 mg, nebivolol 10 mg daily
-Blood pressure has since improved with improved pain and resolution of urine retention
-Continue to monitor vitals on current regimen
#Left superior pubic ramus fracture
#Left inferior pubic ramus/ischium fracture
#Left sacral alar fracture
#Mechanical fall in May
-Nonoperative fractures, will consult PT and provide analgesia
-Weightbearing as tolerated for now
-OP orthopedics follow-up
-Transition oxycodone to Tylenol with codeine for moderate to severe pain
#COPD
#Mild pulmonary hypertension
-Home medications include albuterol sulfate inhaler every 4 hours as needed
-Not currently on any maintenance LABA/LAMA/ICS; no history of intubation or recent exacerbation
-Remains on room air currently, no signs of COPD flare
#Cholelithiasis
-Do not anticipate these are symptomatic or associated with inflammation
-Presented with a very mild elevation of bilirubin, T. bili 1.6 with normal transaminases
-Will continue to trend LFTs and monitor clinically for signs of choledocholithiasis
#Dyslipidemia
-No known history of ASCVD
-Home regimen includes simvastatin 10 mg
#H/O melanoma
-No known signs of recurrence
DVT prophylaxis: Lovenox
Diet: Regular
CODE STATUS: DNR
Anticipated Discharge: Today
Subjective/Interval History
-
Date of Service: June 05, 2024
Seen and examined at the bedside. No acute vents reported overnight. AFVSS this morning
Patient complains of some pelvic pain. As needed analgesics transition to Tylenol with codeine at family request
Denies any new complaints as of this morning
Objective Data
-
Labs:
Laboratory Results
06/05/24
05:35
WBC 11.0 H
Hgb 11.9 L
Hct 34.6 L
Plt Count 361
Sodium 132 L
Potassium 4.0
Chloride 100
Carbon Dioxide 25
BUN 21 H
Creatinine 0.6
Glucose 89
Calcium 9.1
Vital Signs:
Vital Signs
Temp Pulse Resp BP Pulse Ox
97.0 F 76 14 135/63 95
06/05/24 07:52 06/05/24 08:08 06/05/24 07:52 06/05/24 08:08 06/05/24 08:43
I&O
06/04/24 06/05/24 06/06/24
06:59 06:59 07:59
Intake Total 1260 / 1260 240 / 240
Output Total 1350 / 1350 1400 / 1400
Balance -90 / -90 -1160 / -1160
Review of Systems
-
History Source: Patient
All other systems: Reviewed and negative
Physical Exam
-
General: Well Developed, Well Nourished and No Apparent Distress
HEENT: Normocephalic, Atraumatic and Moist Mucous Membranes
Respiratory: Clear to Auscultation and Non Labored Respirations
Cardiac: Regular Rhythm; Negative Murmur, Rub or Gallop
GI: Soft, Nontender, Nondistended and Normal Bowel Sounds
Genito-urinary: Clear Urine and Ramos
Musculoskeletal: No Clubbing, No Cyanosis and No Edema
Skin: Warm, Dry and Normal Turgor; Negative Rash
Neuro: AO x 3 and Nonfocal/Grossly Intact
Psych: Calm
Data Reviewed
-
Labs: Labs Reviewed by me and Discussed with Patient
--- NOTE | 2024-06-05 11:21 | CM ---
Addendum entered by Margaret Riggs 06/05/24 12:46:
Family will transport patient to [facility] at 1630
Addendum entered by Margaret Riggs 06/05/24 12:15:
1630 ambulance transport set
Notified Estela at [facility]
Original Note:
Per hospitalist patient stable for [facility] today
Met with daughter Quiana in room
spoke with Estela at [facility] & updated
authorization obtained via [employer]
Auth approved - Certified in total
Certificate # [id number]
Approved for SNF level Care
Start date 06/05-06/11/2024
Plan - [facility]
R - [phone]
F - [phone]
transportation forms on chart
[2024-06-05 11:24] VITALS: BP 118/56
[2024-06-05] MEDS: TYLENOL #3 2 TABLET PO (13:40)
[2024-06-05 15:20] VITALS: BP 149/68
--- NOTE | 2024-06-05 16:49 | W.DCSUMMARY ---
Discharge Summary
Discharge Data
Date of Admission: 06/02/24
Date of Discharge: 06/05/24
Total time spent discharging patient (in min): 32
-
Pending Results: No
Hospital Course
Discharging Physician : Jose Valles DO
Disposition : SNF
Principal Discharge diagnosis :
Acute urine retention
Right ureteral leakage (trauma v. reflux v. stone)
Hypovolemic hyponatremia
Nondisplaced pelvic fractures
Chronic Discharge diagnosis :
COPD
Mild pulmonary hypertension
HTN
HLD
H/O TIA
H/O melanoma
S/p left knee replacement
Paroxysmal AF not on AC (?) -- per H&P documentation
Hospital Course :
84-year-old female that presented to the hospital with nausea and dry heaving. Patient was complaining of left-sided pain since a pelvic fracture 1.5 weeks prior to arrival. Mention difficulty ambulating with assistance of walker. Upon arrival to
the ED was found to have urine retention and 600 mL urine output following Ramos catheter placement. Initial labs with serum sodium 121, serum osmolality 257, urine osmolality 317. Was started on IV fluids with quick resolution to hyponatremia,
sodium remained stable thereafter. CT A/P with contrast demonstrated extravasation of urine from the proximal right ureter, contrast seen along the whole course of the right ureter, mild hydronephrosis. Urology recommended surgical intervention
upon arrival. Was taken to the OR on 06/02/2024 for cystoscopy, right retrograde pyelogram with right ureteral stent placement. Directed for Ramos catheter to be maintained thereafter. Ultimate plan for OP follow-up in office with urology for
ureterogram and consideration of timing for trial of void/stent removal. No signs of active infection with negative urinalysis, no fevers, no leukocytosis during hospital stay. Urology recommended 30 days of Macrobid 100 mg nightly and tamsulosin
0.4 mg during the postoperative course while stent present. Started patient on Tylenol with codeine for pain related to her pelvic fractures. Discharged to SNF on 06/05/2024. Unclear cause of her right ureteral leak though suspicion for trauma
related versus retention with reflux first passed stone.
Consultants:
Urologist�Erich Foster MD
Important imaging findings :
CT A/P with IV contrast (06/02/2024)
IMPRESSION: There are branching small nodular opacities within both lower lungs, suggesting small airway pneumonitis, which could be acute and/or chronic. Mild bronchiectasis in the right middle lobe. Band of linear atelectasis within the right
middle lobe. As described, findings suggesting injury at the right ureteropelvic junction with perinephric and periureteral edema, and possible early contrast extravasation. The patient will return for additional delayed images. Cholelithiasis. No
CT findings to suggest acute cholecystitis. Fractures of the left superior pubic ramus and at the junction of the left inferior pubic ramus and ischium. Left sacral alar fracture.
Procedure findings :
PROCEDURE: Cystoscopy, right retrograde pyelogram, right ureteral stent placement.
DATE: 06/02/2024
SURGEON: Erich Foster MD
PREOPERATIVE DIAGNOSIS: Right ureteral leak of unknown etiology.
POSTOPERATIVE DIAGNOSE: Right ureteral leak of unknown etiology.
ANESTHESIA: General.
ESTIMATED BLOOD LOSS: 1 mL.
DRAINS: 1. Six-Austrian 24 cm right ureteral stent. 2. Eighteen-Austrian Ramos catheter.
PATHOLOGY: None.
COMPLICATIONS: None.
OPERATIVE NOTE IN DETAIL: After informed consent (this was obtained from the patient and the patient's son by phone), the patient was brought to the operating room and placed supine on the table. 80 mg of gentamicin was administered. After surgical
time-out and induction of adequate general anesthesia, the patient was very carefully placed in lithotomy with special attention on the left side due to her pelvic fracture. Once properly positioned, her lower abdomen, vagina and urethra were
prepped and draped as a standard field. On vaginal exam, there was no mass, discharge, or bleeding. A 21-Austrian cystoscope was introduced in the bladder and the bladder inspected. The bladder was intact with no evidence of injury, and there was no
mucosal lesion. There was, however, a very small, approximately 2 mm rounded stone in the bladder. The right ureteral orifice was identified. On fluoro, there was no obvious residual contrast outside of the kidney or ureter, and the ureter also had
no residual contrast. However, the right renal pelvis and calices did have some mild residual contrast remaining with a clear definitive outline and no hydronephrosis.
At this juncture, having a well-defined target, I elected not to instill contrast but very gently pass a wire. Under continuous fluoro, the wire was passed up the ureter and coiled readily in the renal pelvis. Over this, an open-ended catheter was
placed. Diluted contrast was now instilled again clearly defining the renal pelvis and calices with no evidence of obvious extravasation at this level. Of note, the patient did have a somewhat tortuous proximal ureter extending from the renal
pelvis. The wire was now readvanced through the open-ended stent coiling in an upper calyx. The open-ended stent was removed and over this wire, a 6-Austrian 24 cm double-J stent was placed. The proximal coil of the stent was achieved in the renal
pelvis and a distal coil achieved in the bladder. The cystoscope was now removed and a Ramos catheter placed. The balloon was inflated, and the catheter was connected to bag drainage. The patient was then taken out of lithotomy, extubated, and
transferred to the recovery room in stable condition.
Follow-up:
-Macrobid 100 mg at bedtime and tamsulosin 0.4 mg daily for 30 days
-Maintain Ramos catheter at discharge
-OP follow-up with urologist for ureterogram and timing of TOV
Discharge Plan
-
Patient Disposition: Residential/SNF
Discharge Diagnosis/Procedures: Acute urine retention
Right ureteral leak s/p stent
Hypovolemic hyponatremia
Nondisplaced pelvic fractures
COPD without exacerbation
Chronic hypertension
Chronic dyslipidemia
Condition: Fair
Diet: Restrict fluids to 64 oz
Additional Diets: Encourage solute intake
Activity: As tolerated
Driving Restrictions: Not until seen by your Dr
Bathing Restrictions: OK to Shower
Blood Work: BMP and CBC with differential 5 to 7 days from hospital discharge
Others Tests: Urogram (contact urologist to schedule)
Other Services: PT and OT
Activity Restrictions/Additional Instructions:
After discharge from SNF should have follow-up appointment with family provider. Referral provided below if new PCP needed
Schedule follow-up in office with urology. Referral provided below. Contact office to schedule appointment
Referrals:
Valerio James MD, Resident [Family Practice Resident Year2] -
NONE,* [Family Provider] -
Erich Foster Jr., MD [Active] - (call dr foster's office on friday to arrange kidney xray and follow up)
Additional Discharge Medication Instructions: Take Tamsulosin 0.4 mg daily for 30 days after discharge
Take Macrobid 100 mg nightly for 30 days
Take Tylenol-Codeine 300-30 mg as needed every 4 hours for moderate-severe pain
Prescriptions:
New
tamsulosin 0.4 mg capsule
0.4 mg PO DAILY 30 Days Qty: 30 0RF
nitrofurantoin monohyd/m-cryst [Macrobid] 100 mg capsule
100 mg PO HS 30 Days Qty: 30 0RF
acetaminophen-codeine 300-30 mg Tablet
2 tab PO Q4HPRN PRN (Reason: moderate-severe pain) 5 Days Qty: 20 0RF
aspirin 81 mg tablet,delayed release (DR/EC)
81 mg PO DAILY 30 Days Qty: 30 0RF
Continued
cetirizine 10 MG tablet
10 mg PO QPM
simvastatin 10 MG tablet
10 mg PO DAILY
meclizine 25 MG tablet
25 mg PO BID
zolpidem 5 MG tablet
5 mg PO HS
Patient Comments:
06/02/24: last filled 04/01/24 for 90 tabs per PDMP
nebivolol 10 MG tablet
10 mg PO QPM
cholecalciferol (vitamin D3) [Vitamin D3] 25 mcg (1,000 unit) Capsule
25 mcg PO DAILY
krill oil 1,444-065-45-80 mg Capsule
1 cap PO DAILY
albuterol sulfate 90 mcg/actuation HFA aerosol inhaler
2 puff INHALATION R Q4HPRN PRN (Reason: sob/wheezing)
amlodipine 2.5 mg Tablet
2.5 mg PO DAILY
trazodone 50 mg Tablet
50 mg PO HS
Visbiome 112.5 billion cell Capsule
1 cap PO DAILY
alprazolam 0.25 MG tablet
0.25 mg PO HS 5 Days Qty: 5 0RF
Discontinued
aspirin 81 mg Tablet,Delayed Release (Dr/Ec)
81 mg PO DAILY
Discharge Orders:
Discharge Patient (As Directed); Ordered 06/05/24
Ordered By: Jose Valles
Discharge Date and Time
Discharge Date/Time: 06/05/24 16:15
Print Language: IVORIAN
== END 2024-06-05 16:15 | DRG 958 ==
LOC: 2 SOUTH 22:20
PROVIDERS: Nurse Practitioner; Nurse Practitioner Family; ADMITTING PHYSICIAN Internal Medicine; ATTENDING PHYSICIAN Internal Medicine; CONSULT PHYSICIAN Specialist; EMERGENCY PHYSICIAN Emergency Medicine
PROC: 0T768DZ Dilation of Right Ureter with Intraluminal Device, Via Natural or Artificial Opening Endoscopic (ICD-10-PCS; 2024-06-03)
DX: S37.10XA Unspecified injury of ureter, initial encounter (principal); E87.1 Hypo-osmolality and hyponatremia; S32.119A Unspecified Zone I fracture of sacrum, initial encounter for closed fracture; N13.2 Hydronephrosis with renal and ureteral calculous obstruction; S32.512A Fracture of superior rim of left pubis, initial encounter for closed fracture; S32.592A Other specified fracture of left pubis, initial encounter for closed fracture; Z66 Do not resuscitate; I48.0 Paroxysmal atrial fibrillation; I10 Essential (primary) hypertension; J44.89 Other specified chronic obstructive pulmonary disease; F41.9 Anxiety disorder, unspecified; F32.A Depression, unspecified; E86.1 Hypovolemia; E78.5 Hyperlipidemia, unspecified; R33.8 Other retention of urine; N21.0 Calculus in bladder; Z86.73 Personal history of transient ischemic attack (TIA), and cerebral infarction without residual deficits; Z87.891 Personal history of nicotine dependence; Z88.0 Allergy status to penicillin; Z96.652 Presence of left artificial knee joint; Z85.828 Personal history of other malignant neoplasm of skin; Z85.820 Personal history of malignant melanoma of skin; Z79.899 Other long term (current) drug therapy; W18.11XA Fall from or off toilet without subsequent striking against object, initial encounter
CPT/HCPCS: 51702; 51798; 71046; 74018; 74177; 76000; 80048; 80053; 81003; 81015; 83930; 83935; 84300; 84484; 85025; 85027; 93005; 96361; 96374; 96375; 96376; 97163; 97167; 99285; C1758; C2617; Q9967

== ENCOUNTER → 2024-06-08 09:14 | Outpatient (REF) | payer OTHER, SELFPAY ==
[2024-06-08 09:45] LABS: Hematocrit 34.9 % (37.0-47.0); Hemoglobin 12.2 g/dL (12.0-16.0); Mean Corpuscular Hgb 31.4 pg (27.0-31.0); Mean Corpuscular Volume 89.9 fL (81.0-99.0); Mean Platelet Volume 9.1 fL (7.4-10.4); Platelet Count 432 10^3/uL (130-400); Red Blood Cell Count 3.88 10^6/uL (4.20-5.40); Red Cell Dist. Width 13.6 % (11.5-14.5); White Blood Cell Count 8.1 10^3/uL (4.8-10.8)
[2024-06-08 10:35] LABS: ALT (SGPT) 12 U/L (0-35); AST (SGOT) 16 U/L (14-36); Albumin 3.2 g/dl (3.5-5.0); Alkaline Phosphatase 110 U/L (38-126); Blood Urea Nitrogen 12 mg/dl (7-17); Calcium 9.8 mg/dl (8.4-10.2); Carbon Dioxide 27 mmol/L (22-30); Chloride 99 mmol/L (98-107); Glucose 97 mg/dl (70-99); Potassium 4.4 mmol/L (3.5-5.1); Sodium 132 mmol/L (135-145); Total Bilirubin 0.7 mg/dl (0.2-1.3); Total Protein 5.2 g/dl (6.3-8.2); eGFR > 60.00
== END ==
LOC: OLABWHC 09:14
PROVIDERS: ATTENDING PHYSICIAN Family Medicine
DX: E87.1 Hypo-osmolality and hyponatremia (principal); K80.00 Calculus of gallbladder with acute cholecystitis without obstruction; I10 Essential (primary) hypertension
CPT/HCPCS: 36415; 80053; 83735; 85027

== ENCOUNTER 2024-06-11 20:28 | Emergency (ER) | payer OTHER, SELFPAY ==
[2024-06-11 20:29] VITALS: BP 159/80
[2024-06-11 20:46] LABS: % Basophils 1.5 % (0-2); % Eosinophils 4.2 % (0-6); % Immature Granulocytes 0.4 % (0-0.5); % Lymphocytes 15.9 % (20.5-51.1); % Monocytes 9.2 % (1.7-9.3); % Neutrophils 68.8 % (42.2-75.2); Absolute Basophils 0.2 10^3/uL (0-0.2); Absolute Eosinophils 0.5 10^3/uL (0-0.7); Absolute Lymphocytes 1.7 10^3/uL (1.2-3.4); Absolute Neutrophils 7.4 10^3/uL (1.4-6.5); Hematocrit 38.8 % (37.0-47.0); Hemoglobin 13.6 g/dL (12.0-16.0); Mean Corp Hgb Conc. 35.1 g/dL (33.0-37.0); Mean Corpuscular Hgb 31.8 pg (27.0-31.0); Mean Corpuscular Volume 90.7 fL (81.0-99.0); Mean Platelet Volume 8.4 fL (7.4-10.4); Nucleated Red Blood Cells % 0 %; Platelet Count 440 10^3/uL (130-400); Red Blood Cell Count 4.28 10^6/uL (4.20-5.40); Red Cell Dist. Width 14.1 % (11.5-14.5); White Blood Cell Count 10.7 10^3/uL (4.8-10.8)
[2024-06-11 21:00] VITALS: BP 136/63
[2024-06-11 21:02] LABS: ALT (SGPT) 17 U/L (0-35); AST (SGOT) 19 U/L (14-36); Albumin 4.4 g/dl (3.5-5.0); Alkaline Phosphatase 133 U/L (38-126); Blood Urea Nitrogen 16 mg/dl (7-17); Calcium 9.8 mg/dl (8.4-10.2); Carbon Dioxide 25 mmol/L (22-30); Chloride 93 mmol/L (98-107); Estimated Creatinine Clearance 43 ml/min; Glucose 125 mg/dl (70-99); Potassium 4.1 mmol/L (3.5-5.1); Sodium 129 mmol/L (135-145); Total Bilirubin 0.8 mg/dl (0.2-1.3); Total Protein 6.6 g/dl (6.3-8.2); eGFR > 60.00
[2024-06-11 21:15] LABS: APTT 21.7 Sec (23.4-35.0)
[2024-06-11 22:00] VITALS: BP 145/70
[2024-06-11 23:00] VITALS: BP 135/59
[2024-06-11] MEDS: TYLENOL 650 MG PO (23:47)
--- NOTE | 2024-06-11 23:53 | ED.GENMED ---
History of Present Illness
General
Chief Complaint: Catheter/Tube Problem
Source: patient, family (Daughter at bedside), ambulance crew and previous hospital records (Recent hospitalization June 02 to June 05 for treatment of pelvic fracture with amatory dysfunction, hyponatremia, found to have right proximal ureteral
tear requiring stent placement)
Exam Limitations: none
Time Seen by Provider: 06/11/24 23:31
Nursing documentation reviewed up to this point in time: agreed with
History of Present Illness
History of Present Illness:
This is an 84-year-old woman who suffered a mechanical fall mid May with resultant left pubic ramus and left ischium fracture. She was hospitalized June 02 initially due to continued low back pain, bilateral hip pain, difficulty ambulating
with a walker and was found to have acute urinary retention requiring Ramos catheter placement and CAT scan noted right hydronephrosis with proximal right ureteral tear requiring urgent stent placement.
Noted to have hyponatremia with initial sodium of 121, normalized with IV fluids.
[facility] June [facility].
Patient states she has been doing well with physical therapy, has been using Tylenol for pain. She has had persistent moderate bilateral posterior hip pain, right flank pain and some right lower quadrant pain, overall unchanged.
Tonight however she noticed gross hematuria from her Ramos around 4 PM that seemed to temporize but then returned after passing a somewhat hard bowel movement this evening. She does admit to moderate constipation, was given an oral laxative earlier
today and did pass a 'good sized' but hard nonbloody stool tonight. She admits to intermittent nausea tonight but has had no vomiting. She denies fever nor chills. No cough no shortness of breath.
As per urology, she has been maintained on Macrobid 100 mg once daily for 30-day. After stent placement and has also been maintained on Flomax 0.4 mg daily.
Plan is for follow-up with urology next week.
Prior to tonight she has had no issues with hematuria.
Past History
Past History
ED Past Medical History: Arrthythmia (Paroxysmal atrial fibrillation not maintained on anticoagulants save for low-dose aspirin), Cancer (Melanoma/basal cell carcinoma), COPD, CVA (TIA), HTN, Hypercholesterolemia, Psychiatric (Anxiety) and Other
(Left pelvic fracture May 2024; right proximal ureteral tear May 2024)
ED Past Surgical History: Appendectomy, and Orthopedic (Right knee meniscus repair 2012; left total knee arthroplasty September 2019)
Social History
Tobacco: Former smoker
Alcohol: Occasional
Drug: None
Personal:
Living: care home (Had been residing with daughter and son-in-law. Currently residing [facility] for [facility] (05/2024))
Employment: Retired
Family History
Family History: Other (Noncontributory)
Phy Exam
Physical Exam
Physical Exam:
GENERAL: 84-year-old woman appears her stated age, bright and alert, pleasant, appears in no acute distress. Daughter is accompanying.
EYE: anicteric
NECK: Supple, nontender, no meningismus, no significant adenopathy.
ENT: oral mucosa is moist. No rhinorrhea.
CARDIAC: Regular rate and rhythm. no murmur.
LUNGS: Clear breath sounds bilaterally, no acute respiratory distress, no wheezes/rales/rhonchi
ABDOMEN: Soft, nondistended, moderate tenderness right lower quadrant as well as mild tenderness right flank, no r/g, normoactive BS. Ramos catheter in place draining mildly blood-tinged urine.
NEUROLOGICAL: Alert and oriented x3, no focal neuro deficits.
SKIN: Warm and dry, normal color, skin intact. No rash.
MUSCULOSKELETAL: No C/C/E. peripheral pulses are full and equal b/l. No palpable tenderness.
PSYCH: Normal and appropriate interaction.
Course
Orders/Labs/Results
Orders:
Orders
06/11/24 20:40
Complete Blood Count/With Diff Urgent
Comprehensive Metabolic Panel Urgent
PTT Urgent
06/11/24 23:42
Acetaminophen [Tylenol] 650 mg PO NOW STA
06/11/24 23:51
Urinalysis Reflex To Culture Urgent
Date Specimen was Collected: 06/12/24
Time Specimen was Collected: 00:14
06/11/24 23:53
Ondansetron Injectable [Zofran] 4 mg IV NOW STA
06/12/24 00:02
CT Abd/pelvis W Iv Cont Urgent
Reason For Exam: GROSS HEMATURIA, R FLANK/rlq pain,R URETERIC STENT
06/12/24 00:18
Urine Microscopic Reflex Cult Urgent
Urine Culture Urgent
SURESH Source: U
Specimen Description:
Date Specimen was Collected: 06/12/24
Time Specimen was Collected: 00:14
Abnormal Lab Results
06/11/24 06/12/24
20:40 00:18
MCH 31.8 H pg
(27.0-31.0)
Plt Count 440 H 10^3/uL
(130-400)
Absolute Neuts (auto) 7.4 H 10^3/uL
(1.4-6.5)
Absolute Monos (auto) 1.0 H 10^3/uL
(0.1-0.6)
Lymphocytes % 15.9 L %
(20.5-51.1)
APTT 21.7 L Sec
(23.4-35.0)
Sodium 129 L mmol/L
(135-145)
Chloride 93 L mmol/L
(98-107)
Glucose 125 H mg/dl
(70-99)
Alkaline Phosphatase 133 H U/L
(38-126)
Ur Occult Blood Reflex 4+ A
(Negative)
Leukocyte Esterase Rfl 2+ A
(Negative)
Urine RBC >100 A /HPF
(0-2)
Urine Albumin (Reflex) 3+ A
(Neg - Trace)
06/11/24 20:40
06/11/24 20:40
Vital Signs
Initial and Last Documented VS:
Initial Vital Signs
Temp Pulse Resp BP Pulse Ox
97.8 F 81 18 159/80 97
06/11/24 20:29 06/11/24 20:29 06/11/24 20:29 06/11/24 20:29 06/11/24 20:29
Last Documented Vital Signs
Temp Pulse Resp BP Pulse Ox
98.6 F 83 14 102/84 94
06/12/24 02:37 06/12/24 02:30 06/12/24 02:30 06/12/24 02:28 06/12/24 02:30
MDM/Problems Addressed
Differential Diagnosis Includes:
Concern for UTI/pyelonephritis, concern for ureteral stent blockage, ureteral stent migration.
Overall appears comfortable, afebrile.
Will medicate for pain with Tylenol, will give Zofran for nausea.
Will check CT abdomen with IV contrast. Will check urinalysis.
Labs show mild hyponatremia at 129, has drifted down slightly from 132 June 08 but improved from 121 June 02.
CBC is normal.
Chronic conditions affecting care: Kidney disease (Right proximal ureteral tear with ureteral stent in place since June 02.) and Other (Left pubic ramus fracture/left ischium fracture after fall mid May 2024)
*Pulse Oximetry
Patient hypoxic: no
*Critical Care Note
Total Time (30-74mins, 75-104mins- exclusive of procedures): Not Applicable
Update Note
Update Note:
02:45
Patient continues to appear comfortable, sleeps when undisturbed. Remains afebrile.
Urinalysis positive for blood but only 6-10 WBCs and no bacteria on microscopic.
CT is reassuring showing no hydronephrosis, bladder is decompressed.
Case discussed with urology, Dr. Jenkins. Recommend reassurance to patient that hematuria is common and somewhat expected with stent.
Urine culture is pending.
Will discharge back to care home for continued care.
ED Attending Note
-
Portions of this chart may have been created with voice recognition software.� Occasional wrong word or��sound alike� substitutions may have occurred due to the inherent limitations of voice recognition software.
Discharge Plan
Departure
Patient Disposition: Half-Way/SNF
Date of Disposition: 06/12/24
Time of Disposition: 02:46
Patient with high blood pressure during this ER visit?: No
Condition: Good
Discharge Problem:
hematuria due to ureteric stent
Instructions: How to Care for Your Ramos Catheter
Prescriptions:
No Action
cetirizine 10 MG tablet
10 mg PO QPM
simvastatin 10 MG tablet
10 mg PO DAILY
meclizine 25 MG tablet
25 mg PO BID
zolpidem 5 MG tablet
5 mg PO HS
Patient Comments:
06/02/24: last filled 04/01/24 for 90 tabs per PDMP
nebivolol 10 MG tablet
10 mg PO QPM
cholecalciferol (vitamin D3) [Vitamin D3] 25 mcg (1,000 unit) Capsule
25 mcg PO DAILY
krill oil 1,568-482-41-80 mg Capsule
1 cap PO DAILY
albuterol sulfate 90 mcg/actuation HFA aerosol inhaler
2 puff INHALATION R Q4HPRN PRN (Reason: sob/wheezing)
amlodipine 2.5 mg Tablet
2.5 mg PO DAILY
trazodone 50 mg Tablet
50 mg PO HS
Visbiome 112.5 billion cell Capsule
1 cap PO DAILY
tamsulosin 0.4 mg capsule
0.4 mg PO DAILY 30 Days Qty: 30 0RF
nitrofurantoin monohyd/m-cryst [Macrobid] 100 mg capsule
100 mg PO HS 30 Days Qty: 30 0RF
acetaminophen-codeine 300-30 mg Tablet
2 tab PO Q4HPRN PRN (Reason: moderate-severe pain) 5 Days Qty: 20 0RF
aspirin 81 mg tablet,delayed release (DR/EC)
81 mg PO DAILY 30 Days Qty: 30 0RF
alprazolam 0.25 MG tablet
0.25 mg PO HS 5 Days Qty: 5 0RF
Referrals:
NONE,* [Family Provider] -
Erich Beebe Jr., MD [Active] - Keep scheduled appt
Interventions
Interventions:
*Risk Screen - Suicide Last Done: 06/11/24 20:29
*General Assessment Last Done: 06/11/24 20:29
*Neglect/Abuse Screening Last Done: 06/11/24 20:29
*ED- Fall Risk Assessment Last Done: 06/11/24 20:29
*ED COVID-19 Vaccine History Last Done: 06/11/24 20:29
IN-Pvymhr-Fmpgmykleg Assessment Last Done: 06/11/24 20:43
ED-Female Genitourinary Assessment Last Done: 06/11/24 20:42
Discharge Date and Time
Print Language: BERMUDIAN
[2024-06-12] VITALS: BP 80/51
[2024-06-12 00:11] VITALS: BP 145/70
[2024-06-12] MEDS: ZOFRAN 4 MG IV (00:18)
[2024-06-12 00:38] LABS: Urine Albumin 3+ (Neg - Trace); Urine Bilirubin Negative (Negative); Urine Character Slightly Cloudy (Clear); Urine Color Amber; Urine Glucose Negative (Negative); Urine Ketone Negative (Negative); Urine Leukocyte 2+ (Negative); Urine Nitrite Negative (Negative); Urine Occult Blood 4+ (Negative); Urine Urobilinogen Negative (Neg - 1+)
[2024-06-12 00:47] LABS: Urine Squamous Cell 0-2 /LPF (Few)
[2024-06-12 00:48] LABS: Urine Red Blood Cell >100 /HPF (0-2)
[2024-06-12 02:28] VITALS: BP 102/84
[2024-06-12 03:00] VITALS: BP 132/66
[2024-06-12 03:19] VITALS: BMI 22.8
== END 2024-06-12 03:48 ==
LOC: EMR 20:28
PROVIDERS: Emergency Medicine; EMERGENCY PHYSICIAN Emergency Medicine
DX: R31.9 Hematuria, unspecified (principal); Z87.891 Personal history of nicotine dependence
CPT/HCPCS: 99285; 96374; 74177; 80053; 81003; 81015; 85025; 85730; 87086; Q9967